=== PATIENT | female | born 1930 | race Caucasian/White ===

== ENCOUNTER 2019-03-10 21:20 | Inpatient (IN) | payer OTHER ==
--- NOTE | 2019-03-10 21:42 | PDOC ---
History of Present Illness - General Stated Complaint: DIFFCULTY BREATHING Time Seen by Provider: 03/10/19 21:28 - History of Present Illness Initial Comments: 03/10/19 21:45 88f with pmh of HTN, HLD, CHF and dementia brought to the ED by EMS after called by daughter for generalized weakness and cough for the past day. According to daughter who lives alone with the patient, her mother is usually moderately lethargic but still functional. Today the patient is more "out-of-it " than usual and "can't even raise a glass of water to drink". Daughter states that she feels the patient's generalized health been getting worse for the past two weeks after the received her pneumococcal vaccine. Patient is a life-long smoker. Patient denies there's anything wrong with her. PCP: Jamin Past History - Past Medical History Allergies/Adverse Reactions: Allergies Allergy/AdvReac Type Severity Reaction Status Date / Time No Known Allergies Allergy Verified 03/10/19 21:52 Home Medications: Ambulatory Orders Ibuprofen [Motrin -] 400 mg PO TID #21 tablet 12/11/14 Olmesartan/Amlodipin/Hcthiazid [Tribenzor 20-5-12.5 mg Tablet] 1 each PO HTN: Yes - Suicide/Smoking/Psychosocial Hx Smoking History: Current every day smoker Number of Cigarettes Smoked Daily: 10 Hx Alcohol Use: Yes (RARE) Substance Use Type: Alcohol Review of Systems - Review of Systems Able to Perform ROS?: Yes Is the patient limited [place] Islander proficient: No Constitutional: No: Symptoms Reported HEENTM: No: Symptoms Reported Respiratory: No: Symptoms reported Cardiac (ROS): No: Symptoms Reported ABD/GI: No: Symptoms Reported : No: Symptoms Reported Musculoskeletal: No: Symptoms Reported Integumentary: No: Symptoms Reported Neurological: No: Symptoms reported All Other Systems: Reviewed and Negative *Physical Exam - Physical Exam General Appearance: Yes: Appropriately Dressed, Obese. No: Apparent Distress HEENT: positive: EOMI, [place], Normal ENT Inspection Respiratory/Chest: positive: Decreased Breath Sounds. negative: Chest Tender, Respiratory Distress Cardiovascular: positive: Regular Rhythm, Regular Rate, S1, S2 Gastrointestinal/Abdominal: positive: Normal Bowel Sounds, Soft, Protuberent. negative: Tender ED Treatment Course - LABORATORY CBC & Chemistry Diagram: 03/10/19 21:35 03/10/19 21:35 - RADIOLOGY Radiology Studies Ordered: Category Date Time Status CHEST X-RAY PORTABLE* [RAD] Stat Radiology 03/10/19 21:29 Ordered Medical Decision Making - Medical Decision Making 03/10/19 22:23 88f with with h/o CHF presenting with lethargy and cough for the past day. Will r/o pneumonia, influenza, CHF, UTI, negtive influenza. elevated white count suspicious for infectious process, negative pedal edema makes chf less likely. Right lower lobe opacification consistent with pneumonia, will cover with ceftriaxone and azithromycine. Hypokalemia: repleting K with IV and PO potassium. Elevated troponin -> EKG normal sinus rhythm, probably ischemic demand. Patient now on O2. Admitting patient to tele obs *DC/Admit/Observation/Transfer Diagnosis at time of Disposition: Pneumonia, Hypokalemia - Discharge Dispostion Decision to Admit order: Yes - Referrals - Patient Instructions - Post Discharge Activity
[2019-03-10 21:54] LABS: BASO % 0.2 % (0-2.0); EOS % 0.1 % (0-4.5); HEMATOCRIT 40.1 % (32.4-45.2); HEMOGLOBIN 13.4 GM/dL (10.7-15.3); LYMPH % 1.7 % (8-40); MCH 29.6 pg (25.7-33.7); MCHC 33.5 g/dl (32.0-36.0); MEAN CELL VOLUME 88.4 fl (80-96); MONO % 10.2 % (3.8-10.2); NEUT % 87.8 % (42.8-82.8); PLATELET COUNT 341 K/MM3 (134-434); RBC 4.54 M/mm3 (3.60-5.2)
[2019-03-10 22:09] LABS: INR 1.16 (0.83-1.09); PROTHROMBIN TIME (PATIENT) 13.7 SEC (9.7-13.0)
[2019-03-10 22:12] LABS: ACTIVATED PTT 30.1 SECONDS (25.2-36.5)
[2019-03-10 22:27] LABS: ALBUMIN 2.2 g/dl (3.4-5.0); ALK PHOS 75 U/L (45-117); ANION GAP 12 MMOL/L (8-16); BILIRUBIN,TOTAL 1.1 mg/dL (0.2-1); BLOOD UREA NITROGEN 67 mg/dL (7-18); CALCIUM 9.4 mg/dL (8.5-10.1); CHLORIDE 90 mmol/L (98-107); CO2 30 mmol/L (21-32); CREATININE 2.1 mg/dL (0.55-1.3); GLUCOSE,RANDOM 141 mg/dL (74-106); MAGNESIUM 2.1 mg/dL (1.8-2.4); N-TERMINAL BNP 6161.2 pg/ml (5-450); POTASSIUM 2.8 mmol/L (3.5-5.1); SGOT/AST 62 U/L (15-37); SGPT/ALT 44 U/L (13-61); SODIUM 131 mmol/L (136-145); TOT PROT 7.1 g/dl (6.4-8.2)
[2019-03-10] MEDS ORDERED: MAGNESIUM SULF 50% (8.12 MEQ/2 ML-1 GM VIAL) IVPB ONE (22:28)
[2019-03-10] MEDS ORDERED: POTASSIUM CHLORIDE 20 MEQ PREMIX IVPB 100 ML IVPB ONE (22:29)
[2019-03-10] MEDS ORDERED: AZITHROMYCIN IVPB 500 MG in DEXTROSE 5%-WATER - 250 ML IVPB ONE (22:57)
[2019-03-10] MEDS ORDERED: CEFTRIAXONE 1 GM in DEXTROSE 5%-WATER - 50 ML IVPB ONE (22:57)
[2019-03-10] MEDS ORDERED: KCL 10 MEQ IVPB 10 MEQ/100 ML INFUS.BAG IVPB ONE (23:19)
[2019-03-10] MEDS ORDERED: MAGNESIUM 1GM/D5W - 2 GM/200 ML IVPB IVPB ONE (23:19)
--- NOTE | 2019-03-10 23:45 | HP ---
CHIEF COMPLAINT: cough, sob PCP: Jamin HISTORY OF PRESENT ILLNESS: 88 woman, smoker, brought in by daughter for generalized weakness, cough, sob for the past day. Patient does not provide any history and is uncooperative. She was taking off her Bipap mask and trying to come off bed. (1) ceftriaxone (2) azithromycin (3) cxr Recent Travel:no PAST MEDICAL HISTORY:HTN, HLD, CHF and dementia PAST SURGICAL HISTORY: Social History: Smoking: yes Alcohol: no Drugs: no Family History: unable to obtain Allergies No Known Allergies Allergy (Verified 03/10/19 21:52) HOME MEDICATIONS: Home Medications Medication Instructions Recorded Ibuprofen [Motrin -] 400 mg PO TID #21 tablet 12/11/14 Olmesartan/Amlodipin/Hcthiazid 1 each PO 12/11/14 [Tribenzor 20-5-12.5 mg Tablet] REVIEW OF SYSTEMS- unable to obtain as patient has severe underlying dementia PHYSICAL EXAMINATION Vital Signs - 24 hr 03/10/19 21:52 Temperature 99.0 F Pulse Rate 71 Respiratory 20 Rate Blood Pressure 149/46 L O2 Sat by Pulse 86 L Oximetry (%) GENERAL: Awake, alert, disoriented to place and time. HEAD: Normal with no signs of trauma. EYES: Pupils equal, round and reactive to light, extraocular movements intact, sclera anicteric, conjunctiva clear. No lid lag. EARS, NOSE, THROAT: Ears normal, nares patent, oropharynx clear without exudates. Moist mucous membranes. NECK: Normal range of motion, supple without lymphadenopathy, JVD, or masses. LUNGS: bibasilar crackles on lung auscultation, HEART: Regular rate and rhythm, normal S1 and S2 without murmur, rub or gallop. ABDOMEN: Soft, nontender, not distended, normoactive bowel sounds, no guarding, no rebound, no masses. MUSCULOSKELETAL: Normal range of motion at all joints. No bony deformities or tenderness. UPPER EXTREMITIES: 2+ pulses, warm, well-perfused. No cyanosis. No clubbing. No peripheral edema. LOWER EXTREMITIES: 1+ pedal edema b/l NEUROLOGICAL: Cranial nerves II-XII intact. Normal speech. PSYCHIATRIC: Cooperative. Good eye contact. Appropriate mood and affect. SKIN: Warm, dry, normal turgor, no rashes or lesions noted, normal capillary refill. Laboratory Results - last 24 hr 03/10/19 03/10/19 03/10/19 21:35 21:35 21:35 WBC 28.0 H RBC 4.54 Hgb 13.4 Hct 40.1 MCV 88.4 MCH 29.6 MCHC 33.5 RDW 15.0 Plt Count 341 MPV 9.0 Absolute Neuts (auto) 24.6 H Neutrophils % 87.8 H Lymphocytes % 1.7 L Monocytes % 10.2 Eosinophils % 0.1 Basophils % 0.2 Nucleated RBC % 0 PT with INR INR PTT (Actin FS) Sodium 131 L Potassium 2.8 L* Chloride 90 L Carbon Dioxide 30 Anion Gap 12 BUN 67 H Creatinine 2.1 H Creat Clearance w eGFR 22.28 Random Glucose 141 H Lactic Acid Calcium 9.4 Magnesium 2.1 Total Bilirubin 1.1 H AST 62 H ALT 44 Alkaline Phosphatase 75 Troponin I 0.13 H B-Natriuretic Peptide 6161.2 H Total Protein 7.1 Albumin 2.2 L Influenza A (Rapid) Negative Influenza B (Rapid) Negative 03/10/19 03/10/19 21:35 22:00 WBC RBC Hgb Hct MCV MCH MCHC RDW Plt Count MPV Absolute Neuts (auto) Neutrophils % Lymphocytes % Monocytes % Eosinophils % Basophils % Nucleated RBC % PT with INR 13.70 H INR 1.16 H PTT (Actin FS) 30.1 Sodium Potassium Chloride Carbon Dioxide Anion Gap BUN Creatinine Creat Clearance w eGFR Random Glucose Lactic Acid 1.7 Calcium Magnesium Total Bilirubin AST ALT Alkaline Phosphatase Troponin I B-Natriuretic Peptide Total Protein Albumin Influenza A (Rapid) Influenza B (Rapid) Imaging studies reviewed EKG with sinus rhythm, no acute ischemic changes ASSESSMENT/PLAN: #Community acquired pneumonia- cough, probable right lower lobe infiltrate on CXR -blood culture -sputum culture -urine legionella ag -ceftriaxone 1g IV q24hrs -azithromycin 500mg IV q24hrs -suppelemental o2 via nasal cannula - pt was not cooperative with Bipap #Possible CHF exacerbation - prominent pulmonary vasculature high BNP, pedal edema -corbin catheter - i/o -daily weights -avoid Lasix at this time due to severe hypokalemia -Bblocker -ARB #Tropinemia - uncertain if demand ischemia or NSTEMI -ASA 324mg po -trend troponin -statin -echo -cardiology consult #Hypekalemia - K was 2.8. Uncertain etiology- may be from poor PO intake. -potassium -monitor on telemetry -avoid any diuretics -repeat K #Severe dementia - disoriented to place and time -bed rest -fall precautions -avoid haldol due to borderline prolonged QTC #DVT ppx -heparin sc Visit type - Emergency Visit Emergency Visit: Yes ED Registration Date: 03/10/19 Care time: The patient presented to the Emergency Department on the above date and was hospitalized for further evaluation of their emergent condition. - New Patient This patient is new to me today: Yes Date on this admission: 03/11/19 - Critical Care Critical Care patient: No
[2019-03-10 23:54] LABS: PLATELET ESTIMATE ADEQUATE
[2019-03-10] MEDS: KCL 10 MEQ IVPB 10 MEQ/100 ML INFUS.BAG IVPB SCH (23:55)
[2019-03-10] MEDS ORDERED: AZITHROMYCIN IVPB 500 MG/250 ML BAG IVPB ONE (23:56)
[2019-03-10] MEDS ORDERED: CEFTRIAXONE 1 GM/50 ML BAG ONE ×2 (23:57→23:58)
[2019-03-11] MEDS ORDERED: POTASSIUM CHLORIDE ORAL LIQUID 20 MEQ/15 ML PO ONE (00:05)
[2019-03-11] MEDS ORDERED: POTASSIUM CHLORIDE TABS 20 MEQ TABLET.ER (FP) PO ONE ×2 (00:26→02:39)
[2019-03-11] MEDS: KCL 10 MEQ IVPB 10 MEQ/100 ML INFUS.BAG IVPB SCH ×2 (00:31→02:08)
[2019-03-11] MEDS ORDERED: ASPIRIN 325 MG TABLET PO ONE (01:51)
[2019-03-11] MEDS ORDERED: KCL 10 MEQ IVPB 10 MEQ/100 ML INFUS.BAG IVPB ONE ×2 (02:04→04:07)
[2019-03-11 06:28] LABS: MCH 29.9 pg (25.7-33.7); MCHC 34.2 g/dl (32.0-36.0); MEAN CELL VOLUME 87.5 fl (80-96); PLATELET COUNT 341 K/MM3 (134-434); RBC 4.35 M/mm3 (3.60-5.2); RDW 15.3 % (11.6-15.6); WHITE BLOOD COUNT 24.1 K/mm3 (4.0-10.0)
[2019-03-11 08:17] LABS: ANION GAP 10 MMOL/L (8-16); BLOOD UREA NITROGEN 71 mg/dL (7-18); CALCIUM 8.9 mg/dL (8.5-10.1); CHLORIDE 92 mmol/L (98-107); CO2 29 mmol/L (21-32); GLUCOSE,RANDOM 153 mg/dL (74-106); POTASSIUM 3.5 mmol/L (3.5-5.1); SODIUM 131 mmol/L (136-145)
--- NOTE | 2019-03-11 09:53 | EKG ---
Test Reason : Blood Pressure : / mmHG Vent. Rate : 074 BPM Atrial Rate : 074 BPM P-R Int : 150 ms QRS Dur : 082 ms QT Int : 434 ms P-R-T Axes : 090 011 075 degrees QTc Int : 481 ms NORMAL SINUS RHYTHM SEPTAL INFARCT , AGE UNDETERMINED ABNORMAL ECG WHEN COMPARED WITH ECG OF 02-SEP-2009 22:07, SEPTAL INFARCT IS NOW PRESENT QT HAS LENGTHENED Confirmed by STEVEN RAZA, MUKESH ([id number]) on 03/11/2019 9:52:51 AM Referred By: Confirmed By:MUKESH HARRIS MD
[2019-03-11] MEDS ORDERED: HYDROCHLOROTHIAZIDE 12.5 MG CAPSULE (FP) PO SCH (10:00)
[2019-03-11] MEDS ORDERED: PATIENT'S OWN MEDICATION (NON-FORMULARY) (Olmesartan/Amlodipin/Hcthiazid [Tribenzor 20-5-1 PO SCH (10:00)
[2019-03-11 10:02] LABS: EPI CELLS 2.8 /HPF (0-5/HPF); URINE APPEARANCE CLOUDY; URINE BACTERIA 0.7 /hpf (NEGATIVE); URINE BILIRUBIN NEGATIVE (NEGATIVE); URINE CASTS 21 /lpf (0-8); URINE COLOR YELLOW; URINE GLUCOSE (UA) NEGATIVE (NEGATIVE); URINE KETONE NEGATIVE (NEGATIVE); URINE LEUK ESTERASE NEGATIVE (NEGATIVE); URINE NITRITE NEGATIVE (NEGATIVE); URINE PROTEIN 1+ (NEGATIVE); URINE WBC 5 /hpf (0-5)
--- NOTE | 2019-03-11 10:43 | PN ---
Progress Note, Physician Chief Complaint: patient seen and examined sitting in bed per nursing was very agitation last night pulled out iv lines trying to get out of bed urine sent wbc count now 28 to 24 on oxygen via nasal canula o2 sats drop when removes the oxygen patient needs sitter - Current Medication List Current Medications: Active Medications Amlodipine Besylate (Norvasc -) 5 mg PO DAILY [facility] Atorvastatin Calcium (Lipitor -) 40 mg PO HS [facility] Heparin Sodium (Porcine) (Heparin -) 5,000 unit SQ BID [facility] Ceftriaxone Sodium 1 gm/ (Dextrose) 50 mls @ 100 mls/hr IVPB DAILY [facility] Sodium Chloride (Normal Saline -) 1,000 mls @ 75 mls/hr IV ASDIR [facility] Azithromycin (Zithromax 500mg Ivpb (Pre-Docked)) 500 mg in 250 mls @ 250 mls/ hr IVPB DAILY [facility] Metoprolol Tartrate (Lopressor -) 25 mg PO BID [facility] Valsartan (Diovan -) 160 mg PO DAILY PAMELA - Objective Vital Signs: Vital Signs Temperature 98.9 F 03/11/19 08:20 Pulse Rate 77 03/11/19 08:20 Respiratory Rate 20 03/11/19 08:20 Blood Pressure 136/59 L 03/11/19 08:20 O2 Sat by Pulse Oximetry (%) 93 L 03/11/19 08:20 Constitutional: Yes: Calm Cardiovascular: Yes: Regular Rate and Rhythm, S1, S2 Respiratory: Yes: On Nasal O2, Other (crackles on left side) Gastrointestinal: Yes: Normal Bowel Sounds, Soft Edema: No Neurological: Yes: Alert Labs: CBC, BMP 03/11/19 05:20 03/11/19 06:00 INR, PTT INR 1.16 (0.83-1.09) H 03/10/19 21:35 Problem List - Problems (1) Pneumonia Assessment/Plan: iv abx leukocytosis oxygen via nasal canula ID eval swallow eval Code(s): J18.9 - PNEUMONIA, UNSPECIFIED ORGANISM (2) Hypokalemia Assessment/Plan: repleted repeat labs Code(s): E87.6 - HYPOKALEMIA (3) Elevated troponin Assessment/Plan: echo cardiology eval maybe secondary to demand ischemia aspirin metoprolol statin Code(s): R74.8 - ABNORMAL LEVELS OF OTHER SERUM ENZYMES (4) ANI (acute kidney injury) Assessment/Plan: renal sono, UA corbin cath renal eval gentle hydration Code(s): N17.9 - ACUTE KIDNEY FAILURE, UNSPECIFIED (5) Agitation Assessment/Plan: secondary to infectious process patient needs a sitter psych eval Code(s): R45.1 - RESTLESSNESS AND AGITATION
[2019-03-11] MEDS ORDERED: AZITHROMYCIN IVPB 500 MG/250 ML BAG IVPB SCH (10:45)
[2019-03-11 10:55] LABS: URINE RBC 5.2 /hpf (0-4)
[2019-03-11] MEDS: VALSARTAN 160 MG TABLET (UD) PO SCH (11:01)
[2019-03-11] MEDS: METOPROLOL TARTRATE 25 MG TABLET (FP) PO SCH (11:02)
[2019-03-11] MEDS: HEPARIN NA (PORCINE) 5,000 UNITS/ML 1ML VIAL SQ SCH ×2 (12:02→21:55)
[2019-03-11] MEDS: ATORVASTATIN CA 40 MG TABLET (FP) PO SCH (12:03)
[2019-03-11] MEDS: amLODIPine BESYLATE 5 MG TABLET (FP) PO SCH (12:04)
[2019-03-11] MEDS: SODIUM CHLORIDE 1,000 ML IV SCH (12:04)
[2019-03-11] MEDS ORDERED: AZITHROMYCIN IVPB 500 MG/250 ML BAG IVPB ONE (12:29)
--- NOTE | 2019-03-11 12:33 | CONSULT ---
Admitting History and Physical - Primary Care Physician PCP: Sommer Neville - Admission History of Present Illness: 88f with with h/o CHF presenting with lethargy and cough for the past day. Per EMR- influenza (-) elevated white count suspicious for infectious process, negative pedal edema makes chf less likely. Right lower lobe opacification consistent with pneumonia, Laboratory Tests 03/10/19 03/11/19 21:35 05:20 WBC 28.0 H 24.1 H History Source: Medical Record Limitations to Obtaining History: Poor Historian ("2013" "[employer]" "[employer]" does not know why she is here) - Smoking History Smoking history: Current every day smoker Have you smoked in the past 12 months: No Aproximately how many cigarettes per day: 10 - Alcohol/Substance Use Hx Alcohol Use: Yes (RARE) History - Admission Reason For Visit: PNEUMONIA/HYPOKALEMIA - Diagnostics X-ray: Report Reviewed - General Mental Status: Awake and Alert, Able to Follow Commands, Forgetful, Vague Attention: Intact Ability to Follow Directions: Good Head/Neck Control: Fair - Hearing Hearing: Functional Speech Evaluation - Communication Primary Language: VINCENTIAN Communication: Yes: Within Normal Limits Oral Expression Ability: Yes: No Impairment - Speech Production Able to Make Needs Known: Yes: WNL Intelligibility: Yes: WNL - Speech Characteristics Voice Loudness: Normal Voice Pitch: Yes: Normal Voice Phonatory-based Quality: Yes: Normal Speech Pattern: Normal Speech Clarity: < 100% Nasal Resonance: Normal Articulation: Yes: Precise - Language/Auditory Comprehension Follows: Yes: 1 Stage Simple Commands Observation: Able to respond to yes/no queries: Yes, Yes/No Confusion: No, Comprehends Conversational Speech: Yes - Language/Verbal Expression Able to Respond to Simple Queries: Yes: WNL Able to Communicate Wants and Needs: Yes: WNL Functional Communication Status: Yes: WNL - Swallow Evaluation/Bedside Assessment Current Nutritional Intake: Regular, Thin Liquids Oral Secretions: Yes: WFL Facial Symmetry at Rest: Symmetrical Facial Symmetry on Retraction: Symmetrical Against Resistance Opening: Normal Against Resistance Closing: Normal Pucker Lips: Normal Smile: Normal Lingual Movement: Normal, Symmetric Lingual Speed of Movement: Normal Lingual Movement Strgth Against Opposition: Normal Lingual Movement Characteristics: Normal Velopharyngeal Movement: Normal Laryngeal Movement: Able to Palpate Rate of Intake: WFL Bolus Size: WFL Labial Seal: WFL Oral Prep Time: WFL A-P Transit: WFL Timing of Swallow: Delayed Coughing/Throat Clear: Yes (with and without po intake) Recommendations - Speech Evaluation, Impression/Plan Impression: Pt was reportedly quite agitated earlier. Sitter at bedside in ER. Calm now. Cough with and without po intake. Delayed onset of swallow. Aspiration? Bedside evaluation not conclusive. - Dysphagia Impressions/Plan Dysphagia Impressions: Ongoing Evaluation *Silent aspiration: cannot be R/O at bedside Dysphagia Treatment Plan: Chin Tuck/Down, Clear Pocket Food, Facilitative Feeding, Safe Rate, 1/2 tsp. at a time, Elevate HOB during feed Recommendations: Other (To reassess, possible need for MBS) - Recommendations Diet Consistency: Other (trioal chopped diet) Medication Administration: Crushed with applesauce Liquids: [place] Thick
--- NOTE | 2019-03-11 13:57 | ECHO ---
Name: TAI JAIMES Exam:Adult Echocardiogram Study Date: 03/11/2019 10:37 AM Age: 88 yrs Reason For Study: EVALUATE FOR CHF Height: 60 in Weight: 160 lb BSA: 1.7 m2 MMode/2D Measurements & Calculations IVSd: 0.89 cm Ao root diam: 2.6 cm LVIDd: 4.1 cm LA dimension: 3.1 cm LVIDs: 2.8 cm LVPWd: 0.89 cm EDV(Teich): 73.5 ml LVOT diam: 2.1 cm ESV(Teich): 28.5 ml Doppler Measurements & Calculations MV E max lopez: 47.3 cm/sec Ao V2 max: 170.6 cm/sec MV A max lopez: 84.3 cm/sec Ao max P.6 mmHg MV E/A: 0.56 Ao V2 mean: 103.7 cm/sec Ao mean P.3 mmHg Ao V2 VTI: 26.3 cm ARI(I,D): 3.3 cm2 ARI(V,D): 4.0 cm2 LV V1 max P.0 mmHg SV(LVOT): 86.0 ml LV V1 mean P.4 mmHg LV V1 max: 205.9 cm/sec LV V1 mean: 126.4 cm/sec LV V1 VTI: 25.8 cm TR max lopez: 206.5 cm/sec Med Peak E' Lopez: 4.4 cm/sec TR max P.1 mmHg Med E/e': 10.8 Lat Peak E' Lopez: 6.7 cm/sec Lat E/e': 7.0 Procedure The study was technically limited with all images being suboptimal in quality. The study was technica lly difficult with many images being suboptimal in quality. Patient uncooperative with study. Left Ventricle The left ventricular size, thickness and function are normal. Ejection Fraction = 60-65%. Grade I kareem stolic dysfunction, (abnormal relaxation pattern). Regional wall motion abnormalities cannot be excluded due to limited visualization. Right Ventricle The right ventricle is normal in size and function. Atria The left atrial size is normal. Right atrium not well visualized. Mitral Valve The mitral valve is not well visualized. There is trace mitral regurgitation. Tricuspid Valve The tricuspid valve is not well visualized. There is trace tricuspid regurgitation. There was insuffi cient TR detected to calculate RV systolic pressure. Aortic Valve The aortic valve is not well visualized. Pulmonic Valve The pulmonic valve is not well visualized. Great Vessels The aortic root is normal size. Pericardium/Pleura There is no pericardial effusion. Interpretation Summary There is no comparison study available. The left ventricular size, thickness and function are normal The right ventricle is normal in size and function. There is trace tricuspid regurgitation. Ejection Fraction = 60-65%. Grade I diastolic dysfunction, (abnormal relaxation pattern). There is trace mitral regurgitation. There is no comparison study available. Syed Thomas MD 03/11/2019 01:56 PM
[2019-03-11 15:37] LABS: ARTERIAL BLD GAS O2 SATURATION 87.1 % (95-98); ARTERIAL BLOOD GAS BASE EXCESS 2.2 meq/l (-2-2); ARTERIAL BLOOD GAS PCO2 48.6 mmHg (35-45); ARTERIAL BLOOD GAS PO2 57.8 mmHg (80-105); ARTERIAL BLOOD GAS pH 7.37 (7.35-7.45)
[2019-03-11 15:40] LABS: ALLENS TEST POSITIVE
--- NOTE | 2019-03-11 15:52 | PN ---
Progress Note (short form) - Note Progress Note: abg noted pulm eval ivf bipap iv steroids conitnuous pulse oximetry Problem List - Problems (1) Pneumonia Code(s): J18.9 - PNEUMONIA, UNSPECIFIED ORGANISM (2) Hypokalemia Code(s): E87.6 - HYPOKALEMIA (3) Elevated troponin Code(s): R74.8 - ABNORMAL LEVELS OF OTHER SERUM ENZYMES (4) ANI (acute kidney injury) Code(s): N17.9 - ACUTE KIDNEY FAILURE, UNSPECIFIED (5) Agitation Code(s): R45.1 - RESTLESSNESS AND AGITATION
--- NOTE | 2019-03-11 17:12 | PN ---
Progress Note (short form) - Note Progress Note: ID consult dictated extremely poor historian she denies everything but the HOTEL RECEPTIONIST tells me she is coughing denies sob, nausea or vomiting denies chest pain or abdominal pain denies fever found to have bibasilar pneumonia with leukocytosis no recent hospital admissions agree with treatment for CAP- f/u cultures, f/u urinary antigens rocephin/doxycycline, has prolonged qtc received zithromax already today ?renal insufficiency- check with PMD baseline renal function check renal sonogram Problem List - Problems (1) Pneumonia Code(s): J18.9 - PNEUMONIA, UNSPECIFIED ORGANISM (2) Hyponatremia Code(s): E87.1 - HYPO-OSMOLALITY AND HYPONATREMIA (3) Hypokalemia Code(s): E87.6 - HYPOKALEMIA (4) Renal insufficiency Code(s): N28.9 - DISORDER OF KIDNEY AND URETER, UNSPECIFIED
--- NOTE | 2019-03-11 17:25 | CON.CARD ---
Consult Consult Specialty:: Cardiology Reason for Consultation:: Cough and SOB. Positive troponins - History of Present Illness Chief Complaint: Cough and SOB History of Present Illness: This is an 88 year old female with a PMH of HTN, HLD, and dCHF. Echocardiogram 60 - 65% with diastolic dysfunction. She is a long time and current cigarette. smoker. She presents now with progressive weakness and a cough. EKG is NSR without acute changes. CXR has basilar changes. WBC count 28 Troponin 0.13 - 0.09 BNP 6161 - History Source Limitations to Obtaining History: Intoxication - Alcohol/Substance Use Hx Alcohol Use: Yes (RARE) - Smoking History Smoking history: Current every day smoker Have you smoked in the past 12 months: No Aproximately how many cigarettes per day: 10 Home Medications - Allergies Allergies/Adverse Reactions: Allergies Allergy/AdvReac Type Severity Reaction Status Date / Time No Known Allergies Allergy Verified 03/10/19 21:52 - Home Medications Home Medications: Ambulatory Orders Amlodipine Besylate 10 mg PO DAILY 03/11/19 Aspirin 81 mg PO DAILY 03/11/19 Atorvastatin Ca [Lipitor] 40 mg PO HS 03/11/19 Cholecalciferol (Vitamin D3) [Vitamin D] 2,000 unit PO DAILY 03/11/19 Cyanocobalamin (Vitamin B-12) [Vitamin B-12] 1,000 mcg PO DAILY 03/11/19 Donepezil HCl 10 mg PO DAILY 03/11/19 Escitalopram Oxalate [Lexapro -] 10 mg PO DAILY 03/11/19 Folic Acid 1 mg PO DAILY 03/11/19 Furosemide 40 mg PO DAILY 03/11/19 Memantine HCl [Memantine HCl ER] 14 mg PO DAILY 03/11/19 Metoprolol Succinate [[place]sp[place] Sprinkle] 25 mg PO DAILY 03/11/19 Potassium Chloride 20 meq PO DAILY 03/11/19 Vital Signs: Vital Signs Temperature 98.4 F 03/11/19 14:00 Pulse Rate 79 03/11/19 15:01 Respiratory Rate 22 H 03/11/19 15:01 Blood Pressure 101/48 L 03/11/19 15:01 O2 Sat by Pulse Oximetry (%) 86 L 03/11/19 15:01 Constitutional: Yes: No Distress HENT: Yes: WNL Respiratory: Yes: Rhonchi (Scattered bilateral) Gastrointestinal: Yes: Soft Cardiovascular: Yes: Regular Rate and Rhythm Heart Sounds: Yes: S1, S2 (No MRHG) Edema: No Neurological: Yes: Alert, Oriented - Other Data Labs, Other Data: CBC, BMP 03/11/19 05:20 03/11/19 06:00 INR, PTT INR 1.16 (0.83-1.09) H 03/10/19 21:35 Troponin, BNP 03/10/19 03/11/19 03/11/19 21:35 05:20 06:00 Troponin I 0.13 H Cancelled 0.09 H B-Natriuretic Peptide 6161.2 H Troponin, BNP 03/10/19 03/11/19 03/11/19 21:35 05:20 06:00 Troponin I 0.13 H Cancelled 0.09 H B-Natriuretic Peptide 6161.2 H Assessment/Plan 88 year old female with a PMH of HTN, HLD, and dCHF. Echocardiogram 60 - 65% with diastolic dysfunction. She is a long time and current cigarette. smoker. She presents now with progressive weakness and a cough. EKG is NSR without acute changes. CXR has basilar changes. WBC count 28 Troponin 0.13 - 0.09 BNP 6161 Positive Troponin This represents demand ischemia (a type 2 FL) and not an acute copronary syndrome This may be secondary to an infection, agree with Ceftriaxone for now Continue metoprolol tartrate 25 mg PO BID Follow troponin trends HTN/HLD Continue valsartan/amlodipine Continue atorvastatin
[2019-03-11] MEDS: methylPREDNISolone NA SUCC 40 MG/1 ML VIAL IVPUSH SCH (18:46)
[2019-03-11] MEDS ORDERED: methylPREDNISolone NA SUCC 40 MG/1 ML VIAL ONE (18:47)
--- NOTE | 2019-03-11 20:46 | CONS ---
DATE OF CONSULTATION: DATE OF DICTATION: 03/11/2019 INFECTIOUS DISEASE CONSULTATION HISTORY OF PRESENT ILLNESS: This is an 88-year-old woman who was brought to the emergency room by EMS after the daughter called EMS. According to the daughter who lives with the mother, the patient is usually functional. She was more out of it and weaker than usual, and she called EMS and had her brought to the ER. The patient herself has no complaints. The daughter feels that she has not been doing well for the last 2 weeks. This is all per the ER chart. The patient is a very poor historian. She is able to tell you her birthday, but she does not know her age. She denies all symptoms whatsoever. She has a moist cough. Denies shortness of breath. Denies headache, chest pain, abdominal pain, nausea, vomiting, diarrhea, or dysuria. ALLERGIES: She has no known drug allergies. MEDICATION: Her medications at home include Tribenzor and Motrin p.r.n. Her home medications include amlodipine, aspirin, atorvastatin, vitamin D, vitamin B12, , Lexapro, folic acid, furosemide, memantine, metoprolol, and potassium. PAST MEDICAL HISTORY: Her past medical history is notable for hypertension, hyperlipidemia, CHF, and dementia. SOCIAL HISTORY: She tells me she lives alone, but apparently lives with her daughter, or her daughter lives with her, and apparently she is still a cigarette smoker. In the ER, she was noted to have bibasilar infiltrates and a white count of 28,000. She was noted to be hyponatremic and hypokalemic as well with an elevated BUN and creatinine. She was given ceftriaxone and Zithromax for possible community-acquired pneumonia yesterday and today. I am asked to see her for further management. REVIEW OF SYSTEMS: As per HPI. PHYSICAL EXAMINATION: VITAL SIGNS: Temperature is 98.4, T-max is 99, pulse is 79, blood pressure 101/48, respiratory rate 22. She is saturating 93% on FiO2 of 40%. HEENT: Normocephalic. Eyes are anicteric. GENERAL: She follows simple commands. NECK: Supple. She has no thrush. She has dentures. She has no meningeal signs. LUNGS: Diminished breath sounds at the bases. Bibasilar crackles. HEART: Regular rate and rhythm. ABDOMEN: Soft, nontender. EXTREMITIES: Without edema. LABORATORY: Notable for a white count on admission of 28,000, this morning 24, hemoglobin 13, platelets of 341, INR is 1.1. BUN and creatinine are 71 and 2, sodium is 131 and potassium at 3.5. CK is 404. Urinalysis is negative. Influenza serology is negative. Blood cultures and urine cultures are pending. Chest x-ray reveals bibasilar infiltrates. IMPRESSION: In summary this is an elderly woman, no recent admissions, admitted with generalized weakness and cough, thought to have bibasilar pneumonia. Would suggest continuing her ceftriaxone. Would switch from Zithromax to doxycycline, as she has evidence of prolonged QTC. Will reorder a legionella and pneumococcal urinary antigen as well with further recommendations to follow. The plan would be to treat her with ceftriaxone and doxycycline while awaiting the tests. Further recommendations to follow. DARVIN MCKINLEY M.D. JULIANA/[id number]
[2019-03-11] MEDS ORDERED: LORazepam 2 MG/ML SDV VIAL IVPUSH ONE (20:47)
[2019-03-11] MEDS ORDERED: HEPARIN NA (PORCINE) 5,000 UNITS/ML 1ML VIAL ONE (21:36)
[2019-03-11] MEDS ORDERED: METOPROLOL TARTRATE 25 MG TABLET (FP) ONE (21:36)
[2019-03-11] MEDS ORDERED: LORazepam 2 MG/ML SDV VIAL ONE (21:36)
[2019-03-11] MEDS ORDERED: CEFTRIAXONE 2 GM/100 ML BAG IVPB ONE (21:37)
[2019-03-11] MEDS: CEFTRIAXONE 2 GM in DEXTROSE 5%-WATER 100 ML IVPB SCH (21:55)
[2019-03-11] MEDS ORDERED: CEFTRIAXONE 1 GM in DEXTROSE 5%-WATER - 50 ML IVPB SCH (22:00)
[2019-03-11] MEDS ORDERED: AZITHROMYCIN IVPB 500 MG in DEXTROSE 5%-WATER - 250 ML IVPB SCH (22:00)
[2019-03-12] MEDS: METOPROLOL TARTRATE 25 MG TABLET (FP) PO SCH ×3 (00:17→22:39)
[2019-03-12] MEDS: DOXYCYCLINE INJECTION 100 MG in DEXTROSE 5%-WATER - 100 ML IVPB SCH ×4 (00:17→22:43)
[2019-03-12] MEDS: ATORVASTATIN CA 40 MG TABLET (FP) PO SCH ×2 (00:18→22:38)
[2019-03-12] MEDS: methylPREDNISolone NA SUCC 40 MG/1 ML VIAL IVPUSH SCH ×3 (02:13→17:33)
--- NOTE | 2019-03-12 06:08 | PN ---
Progress Note (short form) - Note Progress Note: Episodic Note 03/12/2019 @ 6am Called by nurse patient went into atrial fibrillation. Chart reviewed. She has no past medical history of atrial fibrillation. Telemetry reviewed and a irregular rhythm is noted with normal rate at 5:14am, she then spontaneously converted to a sinus rhythm. EKG done revealing a normal sinus rhythm. Blood pressure is stable. Continue with metoprolol succinate and anticoagulation with heparin sq injections. Cardiology following patient and will review. Visit type - Emergency Visit Emergency Visit: No - New Patient This patient is new to me today: Yes Date on this admission: 03/12/19 - Critical Care Critical Care patient: No
[2019-03-12 08:00] LABS: BASO % 0.1 % (0-2.0); EOS % 0.1 % (0-4.5); HEMATOCRIT 36.9 % (32.4-45.2); HEMOGLOBIN 12.5 GM/dL (10.7-15.3); LYMPH % 2.2 % (8-40); MCH 29.7 pg (25.7-33.7); MCHC 33.8 g/dl (32.0-36.0); MEAN CELL VOLUME 87.9 fl (80-96); MEAN PLT VOLUME 8.8 fl (7.5-11.1); MONO % 3.8 % (3.8-10.2); NEUT % 93.8 % (42.8-82.8); PLATELET COUNT 332 K/MM3 (134-434); RBC 4.19 M/mm3 (3.60-5.2); RDW 15.3 % (11.6-15.6); WHITE BLOOD COUNT 16.5 K/mm3 (4.0-10.0)
[2019-03-12 08:27] LABS: ALBUMIN 1.8 g/dl (3.4-5.0); ALK PHOS 64 U/L (45-117); ANION GAP 8 MMOL/L (8-16); BILIRUBIN,TOTAL 0.4 mg/dL (0.2-1); BLOOD UREA NITROGEN 77 mg/dL (7-18); CALCIUM 9.4 mg/dL (8.5-10.1); CHLORIDE 98 mmol/L (98-107); CO2 29 mmol/L (21-32); CREATININE 1.9 mg/dL (0.55-1.3); GLUCOSE,RANDOM 147 mg/dL (74-106); MAGNESIUM 2.9 mg/dL (1.8-2.4); POTASSIUM 3.3 mmol/L (3.5-5.1); SGOT/AST 62 U/L (15-37); SGPT/ALT 48 U/L (13-61); SODIUM 134 mmol/L (136-145); TOT PROT 6.2 g/dl (6.4-8.2)
--- NOTE | 2019-03-12 08:36 | PN ---
Progress Note, Physician - Current Medication List Current Medications: Active Medications Amlodipine Besylate (Norvasc -) 5 mg PO DAILY [facility] Last Admin: 03/11/19 12:04 Dose: Not Given Atorvastatin Calcium (Lipitor -) 40 mg PO HS [facility] Last Admin: 03/12/19 00:18 Dose: Not Given Heparin Sodium (Porcine) (Heparin -) 5,000 unit SQ BID [facility] Last Admin: 03/11/19 21:55 Dose: 5,000 unit Sodium Chloride (Normal Saline -) 1,000 mls @ 75 mls/hr IV ASDIR [facility] Last Admin: 03/11/19 12:04 Dose: 75 mls/hr Ceftriaxone Sodium 2 gm/ (Dextrose) 100 mls @ 200 mls/hr IVPB DAILY [facility] Last Admin: 03/11/19 21:55 Dose: 200 mls/hr Doxycycline Hyclate 100 mg/ (Dextrose) 100 mls @ 50 mls/hr IVPB BID [facility] Last Admin: 03/12/19 00:17 Dose: 50 mls/hr Methylprednisolone Sodium Succinate (Solu-Medrol -) 40 mg IVPUSH Q8H-IV [facility] Last Admin: 03/12/19 02:13 Dose: 40 mg Metoprolol Tartrate (Lopressor -) 25 mg PO BID [facility] Last Admin: 03/12/19 00:17 Dose: Not Given Valsartan (Diovan -) 160 mg PO DAILY [facility] Last Admin: 03/11/19 11:01 Dose: Not Given - Objective Vital Signs: Vital Signs Temperature 97.8 F 03/12/19 01:35 Pulse Rate 62 03/12/19 01:35 Respiratory Rate 20 03/12/19 01:35 Blood Pressure 114/55 L 03/12/19 01:35 O2 Sat by Pulse Oximetry (%) 97 03/11/19 23:10 Cardiovascular: Yes: S1, S2 Respiratory: Yes: Diminished, On BiPap Gastrointestinal: Yes: Normal Bowel Sounds, Soft Edema: No Labs: CBC, BMP 03/12/19 07:08 03/12/19 07:08 INR, PTT INR 1.16 (0.83-1.09) H 03/10/19 21:35 Problem List - Problems (1) Elevated troponin Assessment/Plan: maybe demand tele cardio on board Code(s): R74.8 - ABNORMAL LEVELS OF OTHER SERUM ENZYMES (2) Pneumonia Assessment/Plan: iv abx and steroids leukocytosis oxygen via nasal canula ID and pulm on board swallow eval Code(s): J18.9 - PNEUMONIA, UNSPECIFIED ORGANISM (3) Paroxysmal A-fib Assessment/Plan: monitor on tele ac--start eliquis holter echo Code(s): I48.0 - PAROXYSMAL ATRIAL FIBRILLATION (4) ANI (acute kidney injury) Assessment/Plan: repleted k repeat labs renal sono, UA corbin cath renal eval gentle hydration Code(s): N17.9 - ACUTE KIDNEY FAILURE, UNSPECIFIED (5) Agitation Assessment/Plan: secondary to infectious process patient needs a sitter psych eval Code(s): R45.1 - RESTLESSNESS AND AGITATION Code(s): N17.9 - ACUTE KIDNEY FAILURE, UNSPECIFIED
[2019-03-12] MEDS ORDERED: DEXTROSE 5%-WATER 100 ML IVPB ONE (08:57)
[2019-03-12] MEDS: CEFTRIAXONE 2 GM in DEXTROSE 5%-WATER 100 ML IVPB SCH (09:31)
[2019-03-12] MEDS: APIXABAN 2.5 MG TABLET PO SCH ×2 (09:32→22:38)
[2019-03-12] MEDS: VALSARTAN 160 MG TABLET (UD) PO SCH (09:32)
[2019-03-12] MEDS: amLODIPine BESYLATE 5 MG TABLET (FP) PO SCH (09:32)
[2019-03-12] MEDS ORDERED: AZITHROMYCIN IVPB 500 MG/250 ML BAG IVPB SCH (10:00)
[2019-03-12 10:02] LABS: ANISOCYTOSIS 1+; MACROCYTOSIS 0; PLATELET ESTIMATE NORMAL
--- NOTE | 2019-03-12 10:47 | PN ---
Progress Note, Physician History of Present Illness: seen and examined today in nad. received sedatives early this am. asleep now. - Current Medication List Current Medications: Active Medications Amlodipine Besylate (Norvasc -) 5 mg PO DAILY [facility] Last Admin: 03/12/19 09:32 Dose: Not Given Apixaban (Eliquis -) 2.5 mg PO BID [facility] Last Admin: 03/12/19 09:32 Dose: Not Given Atorvastatin Calcium (Lipitor -) 40 mg PO HS [facility] Last Admin: 03/12/19 00:18 Dose: Not Given Sodium Chloride (Normal Saline -) 1,000 mls @ 75 mls/hr IV ASDIR [facility] Last Admin: 03/11/19 12:04 Dose: 75 mls/hr Ceftriaxone Sodium 2 gm/ (Dextrose) 100 mls @ 200 mls/hr IVPB DAILY [facility] Last Admin: 03/12/19 09:31 Dose: 200 mls/hr Doxycycline Hyclate 100 mg/ (Dextrose) 100 mls @ 50 mls/hr IVPB BID [facility] Last Admin: 03/12/19 00:17 Dose: 50 mls/hr Methylprednisolone Sodium Succinate (Solu-Medrol -) 40 mg IVPUSH Q8H-IV [facility] Last Admin: 03/12/19 09:32 Dose: 40 mg Metoprolol Tartrate (Lopressor -) 25 mg PO BID [facility] Last Admin: 03/12/19 09:32 Dose: Not Given Valsartan (Diovan -) 160 mg PO DAILY [facility] Last Admin: 03/12/19 09:32 Dose: Not Given - Objective Vital Signs: Vital Signs Temperature 98.1 F 03/12/19 09:54 Pulse Rate 67 03/12/19 09:54 Respiratory Rate 20 03/12/19 09:54 Blood Pressure 122/63 03/12/19 09:54 O2 Sat by Pulse Oximetry (%) 96 03/12/19 09:00 Constitutional: Yes: No Distress, Calm HENT: Yes: Atraumatic Cardiovascular: Yes: Regular Rate and Rhythm, S1, S2. No: Bradycardia, Tachycardia, Pulse Irregular, Bruit, JVD, Gallop, Murmur, Rub, S3, S4, Varicosities Respiratory: Yes: Regular. No: Rales, Rhonchi, Wheezes Gastrointestinal: Yes: Normal Bowel Sounds, Soft Edema: No Peripheral Pulses WNL: Yes Neurological: No: Alert, Oriented Psychiatric: No: Alert, Oriented Labs: CBC, BMP 03/12/19 07:08 03/12/19 07:08 INR, PTT INR 1.16 (0.83-1.09) H 03/10/19 21:35 - ....Imaging Chest X-ray: Report Reviewed, Image Reviewed EKG: Report Reviewed, Image Reviewed Other: Report Reviewed, Image Reviewed (tele-NSR, episodes of PSVT early this am ) Assessment/Plan 88 year old female with a PMH of HTN, HLD, and dCHF. Echocardiogram 60 - 65% with diastolic dysfunction. She is a long time and current cigarette. smoker. She presents now with progressive weakness and a cough. EKG is NSR without acute changes. CXR has basilar changes. WBC count 28 Troponin 0.13 - 0.09 BNP 6161 Positive Troponin This represents demand ischemia (a type 2 NM) and not an acute copronary syndrome This may be secondary to an infection, agree with Ceftriaxone for now Continue metoprolol tartrate 25 mg PO BID Follow troponin trends HTN/HLD Continue valsartan/amlodipine Continue atorvastatin Arrhythmia -noted early this am during period of agitation -telemetry reviewed appears more c/w PSVT than Afib -ekg done this am showed NSR -cont to monitor tele to further evaluate -if confirmed PSVT and not Afib, does not require full AC
--- NOTE | 2019-03-12 11:16 | PN ---
Progress Note (short form) - Note Progress Note: PULMONARY CONSULTATION DICTATED 03/12/19 IMP ACUTE HYPOXEMIC/HYPERCAPNEIC RESPIRATORY FAILURE BILATERAL PNEUMONIA PULMONARY NODULES ? INFECTIOUS,?MALIGNANT + TROPONIN DIASTOLIC HF PAF ANI TOBACCO ABUSE PLAN ABX PER ID INHALED BRONCHODILATORS STEROIDS O2 NIPPV NEEDED INHALED BRONCHODILATORS F/U ABGS F/U CHEST X-RAYS IVF CULTURES MONITOR LYTES,RENAL FUNCTION F/U CHEST CT 4-6 WKS TO CONFIRM RESOLUTION OF INFILTRATES AND NODULES, IN NO CHANGE PET SCAN DR MOROCHO Problem List - Problems (1) Acute respiratory failure with hypoxia and hypercapnia Code(s): J96.01 - ACUTE RESPIRATORY FAILURE WITH HYPOXIA; J96.02 - ACUTE RESPIRATORY FAILURE WITH HYPERCAPNIA (2) ANI (acute kidney injury) Code(s): N17.9 - ACUTE KIDNEY FAILURE, UNSPECIFIED (3) Elevated troponin Code(s): R74.8 - ABNORMAL LEVELS OF OTHER SERUM ENZYMES (4) Hyponatremia Code(s): E87.1 - HYPO-OSMOLALITY AND HYPONATREMIA (5) Pneumonia Code(s): J18.9 - PNEUMONIA, UNSPECIFIED ORGANISM
--- NOTE | 2019-03-12 11:18 | PN ---
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 INFECTIOUS,?MALIGNANT + TROPONIN ANI TOBACCO ABUSE Now on BIPAP/sleeping. Chopped/nectar ordered for when of BIPAP, if not SOB, and alert. To reassess/determine indication for MBS
[2019-03-12 11:27] LABS: ARTERIAL BLD GAS O2 SATURATION 92.9 % (95-98); ARTERIAL BLOOD GAS BASE EXCESS 2.5 meq/l (-2-2); ARTERIAL BLOOD GAS PCO2 51.8 mmHg (35-45); ARTERIAL BLOOD GAS PO2 71.6 mmHg (80-105); ARTERIAL BLOOD GAS pH 7.36 (7.35-7.45)
[2019-03-12 11:35] LABS: ALLENS TEST POSITIVE
--- NOTE | 2019-03-12 12:18 | CONS ---
DATE OF CONSULTATION: 03/12/2019 REFERRING PHYSICIAN: Sommer Neville MD History is obtained from the chart. The patient is an 88-year-old white female, past medical history of hypertension, hyperlipidemia, diastolic heart failure, dementia, admitted to [facility] with generalized weakness, cough, and just shortness of breath for a few days. Patient was sent to the emergency room with the above. On admission, she was noted to be hypoxemic. She was placed on BiPAP. She underwent a CT scan of the chest, which revealed bilateral pneumonia; nonspecific pulmonary nodules, in the right 1.3 x 1 cm horizontal fissure, and 1.7 x 1.4 nodular capacity in the posterior wall of the right mainstem bronchus. She was transferred up to medical telemetry unit for further monitoring. On admission, she was placed on broad-spectrum antibiotics. The patient has a history of tobacco use and apparently currently still smokes. No further history is available at this time. Past medical history, again, includes hypertension, hyperlipidemia, diastolic heart failure, with grade 1 diastolic dysfunction, PAF. SOCIAL HISTORY: Positive tobacco use. Current medications include Solu-Medrol, Diovan, ceftriaxone, doxycycline, Eliquis, Lopressor, Norvasc, normal saline, Lipitor. REVIEW OF SYSTEMS: Unable to obtain. PHYSICAL EXAMINATION: General: The patient is an elderly white female, well developed, well nourished, lethargic, on BiPAP. Vital Signs: She is currently afebrile. Blood pressure is 122/63. Respiratory rate 20. O2 saturation is 96% on BiPAP 40% O2. HEENT: Normocephalic, atraumatic. Neck: Supple. Heart: Irregularly irregular. S1, S2. Chest: A few scattered bilateral rhonchi. Abdomen: Soft. Bowel sounds are positive. Extremities: No cyanosis, edema. LABORATORY DATA: BUN 77, creatinine 1.9, magnesium 2.9. AST is 62. BNP is 6161. Potassium 3.3, sodium 134. WBC is 16.5, hemoglobin 12.5, hematocrit 36.9, with a platelet count of 332,000. Blood gas: pH 7.37, pCO2 of 48, pO2 of 57, bicarbonate of 27, saturation of 87; that was on 4 L nasal cannula. Chest CT: Extensive bilateral consolidation, left upper lobe anterior segment and right upper lobe posterior segment infiltrates, nonspecific opacities in the right lung. IMPRESSION: Acute hypoxemic hypercapnic respiratory failure secondary to: 1. Bilateral pneumonia. 2. Pulmonary nodules, likely infectious, cannot exclude possible malignant. 3. Positive troponin. 4. Acute kidney injury. 5. Tobacco use. 6. Paroxysmal atrial fibrillation. 7. Diastolic heart failure. PLAN: Broad-spectrum antibiotics as per Infectious Disease, supplemental O2 to maintain O2 saturation, and IPPV as needed with increasing respiratory distress, inhaled bronchodilators, IV fluids. Obtain cultures, cold agglutinins, Legionella urinary antigen. Monitor electrolytes, renal function. Trend troponins. Replete electrolytes. Obtain followup chest CT in 4 to 6 weeks to confirm resolution of infiltrates and nodules. If no change, obtain PET scan. OWEN MOROCHO M.D. [id number]
[2019-03-12] MEDS: SODIUM CHLORIDE 1,000 ML IV SCH (12:25)
--- NOTE | 2019-03-12 12:25 | EKG ---
Test Reason : Blood Pressure : / mmHG Vent. Rate : 062 BPM Atrial Rate : 062 BPM P-R Int : 164 ms QRS Dur : 088 ms QT Int : 418 ms P-R-T Axes : 066 008 075 degrees QTc Int : 424 ms NORMAL SINUS RHYTHM NONSPECIFIC T WAVE ABNORMALITY ABNORMAL ECG Confirmed by MD ANGELA, KATALINA ([id number]) on 03/12/2019 12:25:35 PM Referred By: Jessica DIXON Confirmed By:KATALINA MILLER MD
--- NOTE | 2019-03-12 13:32 | CONSULT ---
Consult - text type - Consultation Consultation Note: Renal Consult for ANI vs. CKD This is a 88 year old woman with hx of hypertension, hyperlipidemia, CHF, dementia, smoker who presented with weakness and cough and noted to have Cr of 1.9. Pt seen and examined at the bedside. Denies any hx of CKD, kidney stones. NO recent contrast exposure. Denies any flank pain, dysuria, hematuria. Denies any NSAID use. Reports appetite has been poor for the past week. No N/V/ D. No fever or chills. on BIPAP currently. PMHx: as above Allergies: NDKA Family Hx: NC Social Hx: + smoker ROS: as per HPI, all other pertinent ros negative Home Medications Medication Instructions Recorded Amlodipine Besylate 10 mg PO DAILY 03/11/19 Aspirin 81 mg PO DAILY 03/11/19 Atorvastatin Ca [Lipitor] 40 mg PO HS 03/11/19 Cholecalciferol (Vitamin D3) 2,000 unit PO DAILY 03/11/19 [Vitamin D] Cyanocobalamin (Vitamin B-12) 1,000 mcg PO DAILY 03/11/19 [Vitamin B-12] Donepezil HCl 10 mg PO DAILY 03/11/19 Escitalopram Oxalate [Lexapro -] 10 mg PO DAILY 03/11/19 Folic Acid 1 mg PO DAILY 03/11/19 Furosemide 40 mg PO DAILY 03/11/19 Memantine HCl [Memantine HCl ER] 14 mg PO DAILY 03/11/19 Metoprolol Succinate [Kapspargo 25 mg PO DAILY 03/11/19 Sprinkle] Potassium Chloride 20 meq PO DAILY 03/11/19 Vital Signs Temperature 98.1 F 03/12/19 09:54 Pulse Rate 67 03/12/19 09:54 Respiratory Rate 20 03/12/19 09:54 Blood Pressure 122/63 03/12/19 09:54 O2 Sat by Pulse Oximetry (%) 96 03/12/19 09:00 Intake & Output 03/09/19 03/10/19 03/11/19 03/12/19 23:59 23:59 23:59 23:59 Intake Total 765 Balance 765 Weight 72.575 kg NAD awake and alert neck supple, no JVD RRR, no M/R CTA, no rales or wheeze soft NT/ND, Obese No LE edema CBC, BMP 03/12/19 07:08 04/23/19 07:08 Laboratory Tests 03/12/19 03/12/19 07:08 07:08 Hemoglobin A1c % 6.9 H Calcium 9.4 Magnesium 2.9 H Albumin 1.8 L Current Medications Amlodipine Besylate (Norvasc -) 5 mg PO DAILY [facility] Last Admin: 03/12/19 09:32 Dose: Not Given Apixaban (Eliquis -) 2.5 mg PO BID [facility] Last Admin: 03/12/19 09:32 Dose: Not Given Atorvastatin Calcium (Lipitor -) 40 mg PO HS [facility] Last Admin: 03/12/19 00:18 Dose: Not Given Sodium Chloride (Normal Saline -) 1,000 mls @ 75 mls/hr IV ASDIR [facility] Last Admin: 03/12/19 12:25 Dose: Not Given Ceftriaxone Sodium 2 gm/ (Dextrose) 100 mls @ 200 mls/hr IVPB DAILY [facility] Last Admin: 03/12/19 09:31 Dose: 200 mls/hr Doxycycline Hyclate 100 mg/ (Dextrose) 100 mls @ 50 mls/hr IVPB BID [facility] Last Admin: 03/12/19 13:17 Dose: 50 mls/hr Methylprednisolone Sodium Succinate (Solu-Medrol -) 40 mg IVPUSH Q8H-IV [facility] Last Admin: 03/12/19 09:32 Dose: 40 mg Metoprolol Tartrate (Lopressor -) 25 mg PO BID [facility] Last Admin: 03/12/19 09:32 Dose: Not Given Valsartan (Diovan -) 160 mg PO DAILY [facility] Last Admin: 03/12/19 09:32 Dose: Not Given 88 year old woman with hx of hypertension, hyperlipidemia, CHF, dementia, smoker who presented with weakness and cough and noted to have Cr of 1.9. #ANI vs. CKD #Hydronephrosis #SOB #COPD exacerbation #Hypertension #HLD Renal function stable over the pas 24 hours. Will need to obtain baseline cr form PMD office. Renal US showed left hydronephrosis which was also noted on prior imaging of Abd. Given that kidney also shows significant cortical atrophy this is likely to be long standing. Continue IVF x 24 more hours trend renal function and electrolytes continue steroids and Abx as per pulmonary BIPAP support BP at goal, continue amlodipine, metoprolol and valsartan for now Avoid nephrotoxins and IV contrast Thank you Irving King DO
--- NOTE | 2019-03-12 15:38 | CON.PSY ---
Psychiatry Consult Chief Complaint: 88 alba old female admitted with Pneumonia, has HTN, ? [id number]. Shew apparantly became aggressive and was given atival IM. She, according to staff has been calmer and is on BY Pap. - Previous Psychiatric Treatment Outpatient: None Inpatient: None - Previous Substance Abuse Treatment Outpatient: None Inpatient: None - Current Medications Current Medications: Active Medications Amlodipine Besylate (Norvasc -) 5 mg PO DAILY [facility] Last Admin: 03/12/19 09:32 Dose: Not Given Apixaban (Eliquis -) 2.5 mg PO BID [facility] Last Admin: 03/12/19 09:32 Dose: Not Given Atorvastatin Calcium (Lipitor -) 40 mg PO HS [facility] Last Admin: 03/12/19 00:18 Dose: Not Given Sodium Chloride (Normal Saline -) 1,000 mls @ 75 mls/hr IV ASDIR [facility] Last Admin: 03/12/19 12:25 Dose: Not Given Ceftriaxone Sodium 2 gm/ (Dextrose) 100 mls @ 200 mls/hr IVPB DAILY [facility] Last Admin: 03/12/19 09:31 Dose: 200 mls/hr Doxycycline Hyclate 100 mg/ (Dextrose) 100 mls @ 50 mls/hr IVPB BID [facility] Last Admin: 03/12/19 13:17 Dose: 50 mls/hr Methylprednisolone Sodium Succinate (Solu-Medrol -) 40 mg IVPUSH Q8H-IV [facility] Last Admin: 03/12/19 09:32 Dose: 40 mg Metoprolol Tartrate (Lopressor -) 25 mg PO BID [facility] Last Admin: 03/12/19 09:32 Dose: Not Given Valsartan (Diovan -) 160 mg PO DAILY [facility] Last Admin: 03/12/19 09:32 Dose: Not Given - Allergies Allergies: Allergies Allergy/AdvReac Type Severity Reaction Status Date / Time No Known Allergies Allergy Verified 03/10/19 21:52 - Current Living Status Usual Living Arrangement: With Significant Other - Current Mental Status Evaluation Appearance: Disheveled Attitude: Guarded - Affect Affect: Constrictive Appropriateness: Not Appropriate - Mood Mood: Euthymic - Speech/Language Expressive: Delayed - Psychomotor Activity Psychomotor Activity: Slowed - Thought Process Thought Process: Circumstantial - Thought Content Hallucinations: Absent Delusions: Absent - Self Perception Self Perception: No Impairment - Cognition Attention: Alert Orientation: Time Memory, Immediate Recall: Intact Memory, Short Term: 1/3 Memory, Remote with Promptin/3 - Concentration Serial Sevens Intact: No Simple Calculations Intact: No - Abstraction Proverb Interpretation: Impaired Judgement: Moderately Impaired - Insight Insight: Impaired - Suicidal Ideation Suicidal Ideation: No - Homicidal Ideation Homicidal Ideation: No Assessment/Plan 1) No Psych meds at this time. 2) re Eval as needed.
--- NOTE | 2019-03-12 17:33 | PN ---
Progress Note (short form) - Note Progress Note: resting comfortably on bipap Vital Signs Period Temp Pulse Resp BP Sys/Angel Pulse Ox Last 24 Hr 97.1 F-98.1 F 58-81 20-20 104-133/51-63 93-99 cor-rrr lungs decreased bs at bases abd soft, nt ext no edema CBC, BMP 03/12/19 07:08 03/12/19 07:08 Microbiology 03/11/19 09:41 Urine - Urine - Catheterized Urine Culture - Final NO GROWTH OBTAINED 03/10/19 21:35 Blood - Peripheral Venous Blood Culture - Preliminary NO GROWTH OBTAINED AFTER 24 HOURS, INCUBATION TO CONTINUE FOR 4 DAYS. 03/10/19 21:35 Blood - Peripheral Venous Blood Culture - Preliminary NO GROWTH OBTAINED AFTER 24 HOURS, INCUBATION TO CONTINUE FOR 4 DAYS. Current Medications Amlodipine Besylate (Norvasc -) 5 mg PO DAILY [facility] Last Admin: 03/12/19 09:32 Dose: Not Given Apixaban (Eliquis -) 2.5 mg PO BID [facility] Last Admin: 03/12/19 09:32 Dose: Not Given Atorvastatin Calcium (Lipitor -) 40 mg PO HS [facility] Last Admin: 03/12/19 00:18 Dose: Not Given Sodium Chloride (Normal Saline -) 1,000 mls @ 75 mls/hr IV ASDIR [facility] Last Admin: 03/12/19 12:25 Dose: Not Given Ceftriaxone Sodium 2 gm/ (Dextrose) 100 mls @ 200 mls/hr IVPB DAILY [facility] Last Admin: 03/12/19 09:31 Dose: 200 mls/hr Doxycycline Hyclate 100 mg/ (Dextrose) 100 mls @ 50 mls/hr IVPB BID [facility] Last Admin: 03/12/19 13:17 Dose: 50 mls/hr Methylprednisolone Sodium Succinate (Solu-Medrol -) 40 mg IVPUSH Q8H-IV [facility] Last Admin: 03/12/19 09:32 Dose: 40 mg Metoprolol Tartrate (Lopressor -) 25 mg PO BID [facility] Last Admin: 03/12/19 09:32 Dose: Not Given Valsartan (Diovan -) 160 mg PO DAILY [facility] Last Admin: 03/12/19 09:32 Dose: Not Given a/p CAP- rocephin/doxycycline, has prolonged qtc ?renal insufficiency- check with PMD baseline renal function check renal sonogram-chronic hydronephrosis on right wbc trending down f/u urinary antigens Problem List - Problems (1) Pneumonia Code(s): J18.9 - PNEUMONIA, UNSPECIFIED ORGANISM (2) Hyponatremia Code(s): E87.1 - HYPO-OSMOLALITY AND HYPONATREMIA (3) Hypokalemia Code(s): E87.6 - HYPOKALEMIA (4) Renal insufficiency Code(s): N28.9 - DISORDER OF KIDNEY AND URETER, UNSPECIFIED
[2019-03-13] MEDS: methylPREDNISolone NA SUCC 40 MG/1 ML VIAL IVPUSH SCH ×4 (02:26→22:53)
[2019-03-13 07:28] LABS: ARTERIAL BLD GAS O2 SATURATION 95.6 % (95-98); ARTERIAL BLOOD GAS BASE EXCESS 2.5 meq/l (-2-2); ARTERIAL BLOOD GAS PCO2 49.7 mmHg (35-45); ARTERIAL BLOOD GAS PO2 82.8 mmHg (80-105); ARTERIAL BLOOD GAS pH 7.37 (7.35-7.45)
[2019-03-13 07:34] LABS: ALLENS TEST POSITIVE
[2019-03-13] MEDS ORDERED: DEXTROSE 5%-WATER 100 ML IVPB ONE (09:02)
[2019-03-13 09:56] LABS: BASO % 0.1 % (0-2.0); HEMATOCRIT 35.9 % (32.4-45.2); LYMPH % 1.7 % (8-40); MCH 29.7 pg (25.7-33.7); MCHC 33.4 g/dl (32.0-36.0); MEAN CELL VOLUME 88.9 fl (80-96); MEAN PLT VOLUME 8.9 fl (7.5-11.1); MONO % 3.9 % (3.8-10.2); NEUT % 94.3 % (42.8-82.8); PLATELET COUNT 366 K/MM3 (134-434); RBC 4.03 M/mm3 (3.60-5.2); RDW 15.4 % (11.6-15.6); WHITE BLOOD COUNT 23.7 K/mm3 (4.0-10.0)
--- NOTE | 2019-03-13 10:03 | PN ---
Progress Note, Physician - Current Medication List Current Medications: Active Medications Amlodipine Besylate (Norvasc -) 5 mg PO DAILY [facility] Last Admin: 03/12/19 09:32 Dose: Not Given Apixaban (Eliquis -) 2.5 mg PO BID [facility] Last Admin: 03/12/19 22:38 Dose: Not Given Atorvastatin Calcium (Lipitor -) 40 mg PO HS [facility] Last Admin: 03/12/19 22:38 Dose: Not Given Sodium Chloride (Normal Saline -) 1,000 mls @ 75 mls/hr IV ASDIR [facility] Last Admin: 03/12/19 12:25 Dose: Not Given Ceftriaxone Sodium 2 gm/ (Dextrose) 100 mls @ 200 mls/hr IVPB DAILY [facility] Last Admin: 03/12/19 09:31 Dose: 200 mls/hr Doxycycline Hyclate 100 mg/ (Dextrose) 100 mls @ 50 mls/hr IVPB BID [facility] Last Admin: 03/12/19 22:43 Dose: 50 mls/hr Methylprednisolone Sodium Succinate (Solu-Medrol -) 40 mg IVPUSH Q8H-IV [facility] Last Admin: 03/13/19 02:26 Dose: 40 mg Metoprolol Tartrate (Lopressor -) 25 mg PO BID [facility] Last Admin: 03/12/19 22:39 Dose: Not Given Valsartan (Diovan -) 160 mg PO DAILY [facility] Last Admin: 03/12/19 09:32 Dose: Not Given - Objective Vital Signs: Vital Signs Temperature 97.8 F 03/13/19 09:19 Pulse Rate 60 03/13/19 09:19 Respiratory Rate 20 03/13/19 09:19 Blood Pressure 113/6 L 03/13/19 09:19 O2 Sat by Pulse Oximetry (%) 96 03/13/19 09:00 Cardiovascular: Yes: Regular Rate and Rhythm Respiratory: Yes: Regular, CTA Bilaterally Gastrointestinal: Yes: Normal Bowel Sounds, Soft Labs: CBC, BMP 03/13/19 09:00 INR, PTT INR 1.16 (0.83-1.09) H 03/10/19 21:35 Problem List - Problems (1) Elevated troponin Assessment/Plan: maybe demand tele cardio on board Code(s): R74.8 - ABNORMAL LEVELS OF OTHER SERUM ENZYMES (2) Pneumonia Assessment/Plan: iv abx and steroids leukocytosis oxygen via nasal canula ID and pulm on board swallow eval Code(s): J18.9 - PNEUMONIA, UNSPECIFIED ORGANISM (3) Paroxysmal A-fib Assessment/Plan: monitor on tele ac--start eliquis holter TO CONFIRM CARDIO NOTED echo Code(s): I48.0 - PAROXYSMAL ATRIAL FIBRILLATION (4) ANI (acute kidney injury) Assessment/Plan: repleted k repeat labs renal sono, UA corbin cath renal eval gentle hydration Code(s): N17.9 - ACUTE KIDNEY FAILURE, UNSPECIFIED (5) Agitation Assessment/Plan: secondary to infectious process patient needs a sitter psych eval Code(s): R45.1 - RESTLESSNESS AND AGITATION Code(s): N17.9 - ACUTE KIDNEY FAILURE, UNSPECIFIED
[2019-03-13] MEDS: CEFTRIAXONE 2 GM in DEXTROSE 5%-WATER 100 ML IVPB SCH (10:08)
[2019-03-13] MEDS: DOXYCYCLINE INJECTION 100 MG in DEXTROSE 5%-WATER - 100 ML IVPB SCH ×2 (10:10→22:54)
[2019-03-13] MEDS: APIXABAN 2.5 MG TABLET PO SCH ×2 (10:11→22:53)
[2019-03-13] MEDS: VALSARTAN 160 MG TABLET (UD) PO SCH (10:11)
[2019-03-13] MEDS: amLODIPine BESYLATE 5 MG TABLET (FP) PO SCH (10:11)
[2019-03-13] MEDS: METOPROLOL TARTRATE 25 MG TABLET (FP) PO SCH ×2 (10:11→22:53)
[2019-03-13 10:26] LABS: ALBUMIN 1.8 g/dl (3.4-5.0); ALK PHOS 67 U/L (45-117); ANION GAP 8 MMOL/L (8-16); BILIRUBIN,TOTAL 0.4 mg/dL (0.2-1); BLOOD UREA NITROGEN 81 mg/dL (7-18); CALCIUM 9.8 mg/dL (8.5-10.1); CHLORIDE 103 mmol/L (98-107); CO2 30 mmol/L (21-32); CREATININE 1.7 mg/dL (0.55-1.3); GLUCOSE,RANDOM 165 mg/dL (74-106); MAGNESIUM 2.9 mg/dL (1.8-2.4); POTASSIUM 3.4 mmol/L (3.5-5.1); SGOT/AST 53 U/L (15-37); SGPT/ALT 51 U/L (13-61); SODIUM 140 mmol/L (136-145)
--- NOTE | 2019-03-13 11:01 | PN ---
Progress Note, Physician History of Present Illness: pulmonary alert,comfortable on nasal o2,-resp distress - Current Medication List Current Medications: Active Medications Amlodipine Besylate (Norvasc -) 5 mg PO DAILY [facility] Last Admin: 03/13/19 10:11 Dose: 5 mg Apixaban (Eliquis -) 2.5 mg PO BID [facility] Last Admin: 03/13/19 10:11 Dose: 2.5 mg Atorvastatin Calcium (Lipitor -) 40 mg PO HS [facility] Last Admin: 03/12/19 22:38 Dose: Not Given Ceftriaxone Sodium 2 gm/ (Dextrose) 100 mls @ 200 mls/hr IVPB DAILY [facility] Last Admin: 03/13/19 10:08 Dose: 200 mls/hr Doxycycline Hyclate 100 mg/ (Dextrose) 100 mls @ 50 mls/hr IVPB BID [facility] Last Admin: 03/13/19 10:10 Dose: 50 mls/hr Methylprednisolone Sodium Succinate (Solu-Medrol -) 40 mg IVPUSH BID [facility] Last Admin: 03/13/19 10:11 Dose: 40 mg Metoprolol Tartrate (Lopressor -) 25 mg PO BID [facility] Last Admin: 03/13/19 10:11 Dose: 25 mg Nystatin (Mycostatin Cream -) 1 applic TP BID [facility] Valsartan (Diovan -) 160 mg PO DAILY [facility] Last Admin: 03/13/19 10:11 Dose: 160 mg - Objective Vital Signs: Vital Signs Temperature 97.8 F 03/13/19 09:19 Pulse Rate 60 03/13/19 09:19 Respiratory Rate 20 03/13/19 09:19 Blood Pressure 113/6 L 03/13/19 09:19 O2 Sat by Pulse Oximetry (%) 96 03/13/19 09:00 Constitutional: Yes: Well Nourished, Calm Eyes: Yes: WNL HENT: Yes: WNL Neck: Yes: WNL Cardiovascular: Yes: Regular Rate and Rhythm, S1, S2 Respiratory: Yes: Wheezes (bilateral wheezes) Gastrointestinal: Yes: Normal Bowel Sounds, Soft Extremities: Yes: WNL Edema: No Labs: CBC, BMP 03/13/19 09:00 03/13/19 09:00 INR, PTT INR 1.16 (0.83-1.09) H 03/10/19 21:35 Laboratory Tests 03/13/19 07:20 ABG pH 7.37 ABG pCO2 at Pt Temp 49.7 H ABG pO2 at Pt Temp 82.8 ABG HCO3 27.9 H ABG O2 Sat (Measured) 95.6 Oxygen Flow Rate 40% Vent Rate 14 Pressure Support Vent 10/25 Problem List - Problems (1) Acute respiratory failure with hypoxia and hypercapnia Code(s): J96.01 - ACUTE RESPIRATORY FAILURE WITH HYPOXIA; J96.02 - ACUTE RESPIRATORY FAILURE WITH HYPERCAPNIA (2) ANI (acute kidney injury) Code(s): N17.9 - ACUTE KIDNEY FAILURE, UNSPECIFIED (3) Elevated troponin Code(s): R74.8 - ABNORMAL LEVELS OF OTHER SERUM ENZYMES (4) Hyponatremia Code(s): E87.1 - HYPO-OSMOLALITY AND HYPONATREMIA (5) Pneumonia Code(s): J18.9 - PNEUMONIA, UNSPECIFIED ORGANISM Assessment/Plan IMP ACUTE HYPOXEMIC/HYPERCAPNEIC RESPIRATORY FAILURE IMPROVING BILATERAL PNEUMONIA PULMONARY NODULES ? INFECTIOUS,?MALIGNANT + TROPONIN DIASTOLIC HF PAF ANI TOBACCO ABUSE PLAN ABX PER ID INHALED BRONCHODILATORS STEROIDS SAME DOSE O2 NIPPV NEEDED INHALED BRONCHODILATORS F/U CHEST X-RAYS IVF MONITOR LYTES,RENAL FUNCTION F/U CHEST CT 4-6 WKS TO CONFIRM RESOLUTION OF INFILTRATES AND NODULES, IN NO CHANGE PET SCAN DR MOROCHO Problem List - Problems (1) Acute respiratory failure with hypoxia and hypercapnia Code(s): J96.01 - ACUTE RESPIRATORY FAILURE WITH HYPOXIA; J96.02 - ACUTE RESPIRATORY FAILURE WITH HYPERCAPNIA (2) ANI (acute kidney injury) Code(s): N17.9 - ACUTE KIDNEY FAILURE, UNSPECIFIED (3) Elevated troponin Code(s): R74.8 - ABNORMAL LEVELS OF OTHER SERUM ENZYMES (4) Hyponatremia Code(s): E87.1 - HYPO-OSMOLALITY AND HYPONATREMIA (5) Pneumonia Code(s): J18.9 - PNEUMONIA, UNSPECIFIED ORGANISM
[2019-03-13 11:07] LABS: ANISOCYTOSIS 0; MACROCYTOSIS 0; PLATELET ESTIMATE NORMAL
--- NOTE | 2019-03-13 11:29 | PN ---
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 Swallowing reassessed with overt tolerance on sips of thin water. For MBS to r/o Silent Aspiration and provide most liberal diet pt can tolerate..
--- NOTE | 2019-03-13 13:24 | CONSULT ---
Consult Consult Specialty:: PM&R Dr Lane for Dr Melendez Reason for Consultation:: deconditioning - History of Present Illness Chief Complaint: tired History of Present Illness: This is an 88 year old woman with a medical history of dementia, CHF, HTN, HLD, who presented to the ED 03/10/19 with generalized weakness, cough and SOB x1 day. She was diagnosed with acute hypoxemic hypercapnic respiratory failure for which she was seen by Pulm; ID was consulted for PNA as well. Cardiology was consulted for elevated tropinins, who felt elevation was due to demand ischemia as opposed to ACS. Renal was consulted for ANI vs CKD as well as hydronephrosis. Psych was consulted as well. She was seen by PT, and on 03/13/19 she was Minimum Assist in Transfers, and ambulated 5 small steps Contact Guard with Rolling Walker. Physiatry is being consulted for further recommendations. - Alcohol/Substance Use Hx Alcohol Use: Yes (RARE) - Smoking History Smoking history: Current every day smoker Have you smoked in the past 12 months: No Aproximately how many cigarettes per day: 10 - Social History Usual Living Arrangement: Alone (alone in apartment without steps) ADL: Independent (without AD) Home Medications - Allergies Allergies/Adverse Reactions: Allergies Allergy/AdvReac Type Severity Reaction Status Date / Time No Known Allergies Allergy Verified 03/10/19 21:52 - Home Medications Home Medications: Ambulatory Orders Amlodipine Besylate 10 mg PO DAILY 03/11/19 Aspirin 81 mg PO DAILY 03/11/19 Atorvastatin Ca [Lipitor] 40 mg PO HS 03/11/19 Cholecalciferol (Vitamin D3) [Vitamin D] 2,000 unit PO DAILY 03/11/19 Cyanocobalamin (Vitamin B-12) [Vitamin B-12] 1,000 mcg PO DAILY 03/11/19 Donepezil HCl 10 mg PO DAILY 03/11/19 Escitalopram Oxalate [Lexapro -] 10 mg PO DAILY 03/11/19 Folic Acid 1 mg PO DAILY 03/11/19 Furosemide 40 mg PO DAILY 03/11/19 Memantine HCl [Memantine HCl ER] 14 mg PO DAILY 03/11/19 Metoprolol Succinate [Kapspargo Sprinkle] 25 mg PO DAILY 03/11/19 Potassium Chloride 20 meq PO DAILY 03/11/19 Review of Systems Findings/Remarks: Denies fevers, chills, changes in vision/ hearing/ mood, CP, SOB, abdominal pain , nausea, vomiting, constipation, diarrhea, dysuria, numbness/ paresthesias, or muscle/ joint pain. Tired, cough improving. Physical Exam Vital Signs: Vital Signs Temperature 97.8 F 03/13/19 09:19 Pulse Rate 88 03/13/19 11:20 Respiratory Rate 20 03/13/19 09:19 Blood Pressure 113/6 L 03/13/19 09:19 O2 Sat by Pulse Oximetry (%) 95 03/13/19 11:20 Musculoskeletal: Yes: Other (General: calm elderly F lying in bed NAD , AAO x2 (not time) N/M: B shoulder flexion to 100 degrees, 4+/5 BUE/ BLE except for 4/5 B HF; Pinprick Intact BUE/ BLE Extremities: trace BLE pitting edema, no B calf tenderness) Labs: CBC, BMP 03/13/19 09:00 03/13/19 09:00 Assessment/Plan Impression: 1) Deficits Mobility/ ADls 2) Deconditioning 3) Gait abnormality 4) PNA 5) hypoxemic hypercapnic respiratory failure 6) Elevated tropinins due to demand ischemia with hx CHF, HTN, HLD 7) ANI vs CKD with hydronephrosis 8) Agitation with hx dementia 9) Obesity 10) Active smoker 11) Up to date flu shot/ pneumovax Recommendations: 1) PT for stretching strengthening ROM and functional mobility 2) Falls, safety precautions 3) Cardiopulmonary precautions 4) Smoking cessation information at discharge 5) DVT ppx: on Eliquis 6) Skin protection: float heels, frequent turning 7) Denies constipation on current bowel regimen 8) Monitor BMP given renal function 9) Nutrition consult for obesity 10) Continue plan per primary team 11) Discharge planning: depending on her progress, she may need short course inpatient rehabilitation once medically stable Thank you for this referral.
--- NOTE | 2019-03-13 15:16 | HOL ---
Hook-up date: 2019-03-12 10:39:00 Duration: 23:40:00 Test Indications: PAF Medications: 03784 QRS complexes 265 Ventricular ectopics which represent <1 % of total QRS comp. 5788 Supraventricular ectopics which represent 6 % of total QRS comp. * Paced QRS complexs which represent % of total QRS comp. * % of Time Classified as Noise VENTRICULAR ECTOPY 263 Isolated 6 Bigeminal Cycles 1 Couplets 0 Runs 0 Beats in Runs * Beats LONGEST at * BPM at :: -- * Beats FASTEST at * BPM at :: -- SUPRAVENTRICULAR ECTOPY 516 Isolated 31 Couplets 218 Runs 5210 Beats in Runs 199 Beats LONGEST at 126 BPM at 04:53:58 2019-03-13 4 Beats FASTEST at 136 BPM at 14:11:19 2019-03-12 HEART RATES 45 MIN at 07:19:33 2019-03-13 60 AVG 80 MAX at 10:13:06 2019-03-13 LONGEST RR 1.560 secs at 02:17:31 2019-03-13 SCANNED BY AYSMIN SARMIENTO ON 03/13/19 Normal sinus rhythm 263 isolated vpc's frequent apcs - 7% all qrs complexes 218 runs 199 beats longest at 120 bpm 4 beats fastest at 136 bpm Confirmed by FAMILIA LEDBETTER MD ([id number]) on 03/13/2019 3:15:34 PM Referred By: WILFREDO MENDOZA DR Overread By: FAMILIA LEDBETTER MD
--- NOTE | 2019-03-13 15:30 | PN ---
Progress Note (short form) - Note Progress Note: Renal follow up for CKD Pt seen and examined at the bedside feels better has no acute complaints no sob, cp, abd pain making urine Vital Signs Temperature 97.8 F 03/13/19 09:19 Pulse Rate 88 03/13/19 11:20 Respiratory Rate 20 03/13/19 09:19 Blood Pressure 113/6 L 03/13/19 09:19 O2 Sat by Pulse Oximetry (%) 95 03/13/19 11:20 Intake & Output 03/10/19 03/11/19 03/12/19 03/13/19 23:59 23:59 23:59 23:59 Intake Total 865 1345 Output Total 100 100 Balance 765 1245 Weight 72.575 kg NAD neck supple, no JVD RRR, no M/R CTA, no rales or wheeze soft NT/ND, Obese No LE edema CBC, BMP 03/13/19 09:00 03/13/19 09:00 Current Medications Amlodipine Besylate (Norvasc -) 5 mg PO DAILY [facility] Last Admin: 03/13/19 10:11 Dose: 5 mg Apixaban (Eliquis -) 2.5 mg PO BID [facility] Last Admin: 03/13/19 10:11 Dose: 2.5 mg Atorvastatin Calcium (Lipitor -) 40 mg PO HS [facility] Last Admin: 03/12/19 22:38 Dose: Not Given Ceftriaxone Sodium 2 gm/ (Dextrose) 100 mls @ 200 mls/hr IVPB DAILY [facility] Last Admin: 03/13/19 10:08 Dose: 200 mls/hr Doxycycline Hyclate 100 mg/ (Dextrose) 100 mls @ 50 mls/hr IVPB BID [facility] Last Admin: 03/13/19 10:10 Dose: 50 mls/hr Methylprednisolone Sodium Succinate (Solu-Medrol -) 40 mg IVPUSH BID [facility] Last Admin: 03/13/19 10:11 Dose: 40 mg Metoprolol Tartrate (Lopressor -) 25 mg PO BID [facility] Last Admin: 03/13/19 10:11 Dose: 25 mg Nystatin (Mycostatin Cream -) 1 applic TP BID [facility] Valsartan (Diovan -) 160 mg PO DAILY [facility] Last Admin: 03/13/19 10:11 Dose: 160 mg 88 year old woman with hx of hypertension, hyperlipidemia, CHF, dementia, smoker who presented with weakness and cough and noted to have Cr of 1.9. #CKD (baseline Cr 1.64) #Hydronephrosis #SOB #COPD exacerbation #Hypertension #HLD Renal function stable Baseline Cr from PMD office is 1.64 from 02-28-2019 Renal US showed left hydronephrosis which was also noted on prior imaging of Abd. Given that kidney also shows significant cortical atrophy this is likely to be long standing. can discontinue IVF high BUN due to steroids trend renal function and electrolytes continue steroids and Abx as per pulmonary BIPAP support BP at goal, continue amlodipine, metoprolol and valsartan for now Avoid nephrotoxins and IV contrast Thank you Irving King DO
--- NOTE | 2019-03-13 16:04 | PN ---
Progress Note, Physician History of Present Illness: This is an 88 year old female with a PMH of HTN, HLD, and dCHF. Echocardiogram 60 - 65% with diastolic dysfunction. She is a long time and current cigarette. smoker. She presents now with progressive weakness and a cough. EKG is NSR without acute changes. CXR has basilar changes. WBC count 28 Troponin 0.13 - 0.09 BNP 6161 - Current Medication List Current Medications: Active Medications Amlodipine Besylate (Norvasc -) 5 mg PO DAILY [facility] Last Admin: 03/13/19 10:11 Dose: 5 mg Apixaban (Eliquis -) 2.5 mg PO BID [facility] Last Admin: 03/13/19 10:11 Dose: 2.5 mg Atorvastatin Calcium (Lipitor -) 40 mg PO HS [facility] Last Admin: 03/12/19 22:38 Dose: Not Given Ceftriaxone Sodium 2 gm/ (Dextrose) 100 mls @ 200 mls/hr IVPB DAILY [facility] Last Admin: 03/13/19 10:08 Dose: 200 mls/hr Doxycycline Hyclate 100 mg/ (Dextrose) 100 mls @ 50 mls/hr IVPB BID [facility] Last Admin: 03/13/19 10:10 Dose: 50 mls/hr Methylprednisolone Sodium Succinate (Solu-Medrol -) 40 mg IVPUSH BID [facility] Last Admin: 03/13/19 10:11 Dose: 40 mg Metoprolol Tartrate (Lopressor -) 25 mg PO BID [facility] Last Admin: 03/13/19 10:11 Dose: 25 mg Nystatin (Mycostatin Cream -) 1 applic TP BID [facility] Valsartan (Diovan -) 160 mg PO DAILY [facility] Last Admin: 03/13/19 10:11 Dose: 160 mg - Objective Vital Signs: Vital Signs Temperature 98.1 F 03/13/19 14:00 Pulse Rate 57 L 03/13/19 14:00 Respiratory Rate 20 03/13/19 09:19 Blood Pressure 135/62 03/13/19 14:00 O2 Sat by Pulse Oximetry (%) 95 03/13/19 11:20 Constitutional: Yes: No Distress Eyes: Yes: Occular Prosthesis Neck: Yes: WNL Cardiovascular: Yes: Regular Rate and Rhythm (NL S1S2, No MRHG) Respiratory: Yes: CTA Bilaterally Gastrointestinal: Yes: Soft Extremities: Yes: WNL Edema: No Neurological: Yes: Alert, Oriented Labs: CBC, BMP 03/13/19 09:00 03/13/19 09:00 INR, PTT INR 1.16 (0.83-1.09) H 03/10/19 21:35 Assessment/Plan 88 year old female with a PMH of HTN, HLD, and dCHF. Echocardiogram 60 - 65% with diastolic dysfunction. She is a long time and current cigarette. smoker. She presents now with progressive weakness and a cough. EKG is NSR without acute changes. CXR has basilar changes. WBC count 28 Troponin 0.13 - 0.09 BNP 6161 Positive Troponin This represents demand ischemia (a type 2 SD) and not an acute copronary syndrome This may be secondary to an infection, agree with Ceftriaxone for now Continue metoprolol tartrate 25 mg PO BID Follow troponin trends HTN/HLD Continue valsartan/amlodipine Continue atorvastatin Remains in NSR Arrhythmia Paroxysmal supraventricular tachycardia Appears to be most consistent with atrial tachycardia Does not requires AC for this Would increase metoprolol tartrate to 37.5 mg PO BID Try to catch a PSVT episode on a 12 - leads EKG
[2019-03-13] MEDS: ATORVASTATIN CA 40 MG TABLET (FP) PO SCH (22:53)
[2019-03-13] MEDS: NYSTATIN 100,000 UNIT/GM TOPICAL CREAM 15 GM TUBE TP SCH (22:53)
[2019-03-14 07:50] LABS: BASO % 0.1 % (0-2.0); HEMATOCRIT 37.3 % (32.4-45.2); HEMOGLOBIN 12.5 GM/dL (10.7-15.3); LYMPH % 1.6 % (8-40); MCH 29.6 pg (25.7-33.7); MCHC 33.6 g/dl (32.0-36.0); MEAN CELL VOLUME 88.1 fl (80-96); MEAN PLT VOLUME 8.4 fl (7.5-11.1); NEUT % 95.3 % (42.8-82.8); PLATELET COUNT 410 K/MM3 (134-434); RBC 4.23 M/mm3 (3.60-5.2); RDW 15.6 % (11.6-15.6); WHITE BLOOD COUNT 22.6 K/mm3 (4.0-10.0)
[2019-03-14 07:55] LABS: ALBUMIN 1.9 g/dl (3.4-5.0); ALK PHOS 71 U/L (45-117); ANION GAP 5 MMOL/L (8-16); BILIRUBIN,TOTAL 0.4 mg/dL (0.2-1); BLOOD UREA NITROGEN 67 mg/dL (7-18); CALCIUM 9.6 mg/dL (8.5-10.1); CHLORIDE 101 mmol/L (98-107); CO2 31 mmol/L (21-32); CREATININE 1.3 mg/dL (0.55-1.3); GLUCOSE,RANDOM 170 mg/dL (74-106); POTASSIUM 3.7 mmol/L (3.5-5.1); SGOT/AST 46 U/L (15-37); SGPT/ALT 59 U/L (13-61); SODIUM 137 mmol/L (136-145); TOT PROT 6.2 g/dl (6.4-8.2)
[2019-03-14] MEDS ORDERED: DEXTROSE 5%-WATER 100 ML IVPB ONE (10:27)
[2019-03-14] MEDS ORDERED: PT OWN MED DRAWER 7, Y5N ONE (10:27)
[2019-03-14] MEDS: VALSARTAN 160 MG TABLET (UD) PO SCH (10:48)
[2019-03-14] MEDS: APIXABAN 2.5 MG TABLET PO SCH ×2 (10:48→21:20)
[2019-03-14] MEDS: CEFTRIAXONE 2 GM in DEXTROSE 5%-WATER 100 ML IVPB SCH (10:49)
[2019-03-14] MEDS: METOPROLOL TARTRATE 25 MG TABLET (FP) PO SCH ×2 (10:49→21:20)
[2019-03-14] MEDS: NYSTATIN 100,000 UNIT/GM TOPICAL CREAM 15 GM TUBE TP SCH ×2 (10:49→21:22)
[2019-03-14] MEDS: methylPREDNISolone NA SUCC 40 MG/1 ML VIAL IVPUSH SCH ×2 (10:49→21:20)
[2019-03-14] MEDS: amLODIPine BESYLATE 5 MG TABLET (FP) PO SCH (10:49)
[2019-03-14 11:15] LABS: ANISOCYTOSIS 1+; OVALOCYTE 1+; PLATELET ESTIMATE NORMAL
[2019-03-14] MEDS: DOXYCYCLINE INJECTION 100 MG in DEXTROSE 5%-WATER - 100 ML IVPB SCH ×3 (12:27→22:59)
--- NOTE | 2019-03-14 12:27 | PN ---
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 Overtly tolerating diet. Feed only when fully alert
--- NOTE | 2019-03-14 13:28 | PN ---
Progress Note, Physician History of Present Illness: PULMONARY ALERT,COMFORTABLE,-SOB,-CP - Current Medication List Current Medications: Active Medications Amlodipine Besylate (Norvasc -) 5 mg PO DAILY [facility] Apixaban (Eliquis -) 2.5 mg PO BID [facility] Atorvastatin Calcium (Lipitor -) 40 mg PO HS [facility] Ceftriaxone Sodium 2 gm/ (Dextrose) 100 mls @ 200 mls/hr IVPB DAILY [facility] Doxycycline Hyclate 100 mg/ (Dextrose) 100 mls @ 50 mls/hr IVPB BID [facility] Last Admin: 03/14/19 12:27 Dose: 50 mls/hr Methylprednisolone Sodium Succinate (Solu-Medrol -) 40 mg IVPUSH BID [facility] Metoprolol Tartrate (Lopressor -) 25 mg PO BID [facility] Nystatin (Mycostatin Cream -) 1 applic TP BID [facility] Valsartan (Diovan -) 160 mg PO DAILY [facility] - Objective Vital Signs: Vital Signs Temperature 97.6 F 03/14/19 06:00 Pulse Rate 64 03/14/19 09:47 Respiratory Rate 22 H 03/14/19 09:47 Blood Pressure 108/60 03/14/19 09:47 O2 Sat by Pulse Oximetry (%) 96 03/14/19 09:00 Constitutional: Yes: Well Nourished, Calm Eyes: Yes: WNL HENT: Yes: WNL Neck: Yes: WNL Cardiovascular: Yes: Regular Rate and Rhythm, S1, S2 Respiratory: Yes: Diminished, Rales (FEW BIBASILAR CRACKLES) Gastrointestinal: Yes: Normal Bowel Sounds, Soft Extremities: Yes: WNL Edema: No Labs: CBC, BMP 03/14/19 06:35 03/14/19 06:35 INR, PTT INR 1.16 (0.83-1.09) H 03/10/19 21:35 Problem List - Problems (1) Acute respiratory failure with hypoxia and hypercapnia Code(s): J96.01 - ACUTE RESPIRATORY FAILURE WITH HYPOXIA; J96.02 - ACUTE RESPIRATORY FAILURE WITH HYPERCAPNIA (2) ANI (acute kidney injury) Code(s): N17.9 - ACUTE KIDNEY FAILURE, UNSPECIFIED (3) Elevated troponin Code(s): R74.8 - ABNORMAL LEVELS OF OTHER SERUM ENZYMES (4) Hyponatremia Code(s): E87.1 - HYPO-OSMOLALITY AND HYPONATREMIA (5) Pneumonia Code(s): J18.9 - PNEUMONIA, UNSPECIFIED ORGANISM Assessment/Plan IMP ACUTE HYPOXEMIC/HYPERCAPNEIC RESPIRATORY FAILURE IMPROVED BILATERAL PNEUMONIA CLINICALLY IMPROVING PULMONARY NODULES ? INFECTIOUS,?MALIGNANT + TROPONIN DIASTOLIC HF PAF ANI TOBACCO ABUSE PLAN ABX PER ID INHALED BRONCHODILATORS STEROID TAPER O2 NIPPV NEEDED INHALED BRONCHODILATORS F/U CHEST X-RAYS IVF MONITOR LYTES,RENAL FUNCTION F/U CHEST CT 4-6 WKS TO CONFIRM RESOLUTION OF INFILTRATES AND NODULES, IN NO CHANGE PET SCAN DR MOROCHO Problem List - Problems (1) Acute respiratory failure with hypoxia and hypercapnia Code(s): J96.01 - ACUTE RESPIRATORY FAILURE WITH HYPOXIA; J96.02 - ACUTE RESPIRATORY FAILURE WITH HYPERCAPNIA (2) ANI (acute kidney injury) Code(s): N17.9 - ACUTE KIDNEY FAILURE, UNSPECIFIED (3) Elevated troponin Code(s): R74.8 - ABNORMAL LEVELS OF OTHER SERUM ENZYMES (4) Hyponatremia Code(s): E87.1 - HYPO-OSMOLALITY AND HYPONATREMIA (5) Pneumonia Code(s): J18.9 - PNEUMONIA, UNSPECIFIED ORGANISM
--- NOTE | 2019-03-14 14:07 | PN ---
Progress Note, Physician Chief Complaint: patient seen and examined on nasal canula on iv abx - Current Medication List Current Medications: Active Medications Apixaban (Eliquis -) 2.5 mg PO BID [facility] Atorvastatin Calcium (Lipitor -) 40 mg PO HS [facility] Ceftriaxone Sodium 2 gm/ (Dextrose) 100 mls @ 200 mls/hr IVPB DAILY [facility] Doxycycline Hyclate 100 mg/ (Dextrose) 100 mls @ 50 mls/hr IVPB BID [facility] Last Admin: 03/14/19 12:27 Dose: 50 mls/hr Methylprednisolone Sodium Succinate (Solu-Medrol -) 40 mg IVPUSH BID [facility] Nystatin (Mycostatin Cream -) 1 applic TP BID [facility] Valsartan (Diovan -) 160 mg PO DAILY [facility] - Objective Vital Signs: Vital Signs Temperature 97.6 F 03/14/19 06:00 Pulse Rate 64 03/14/19 09:47 Respiratory Rate 22 H 03/14/19 09:47 Blood Pressure 108/60 03/14/19 09:47 O2 Sat by Pulse Oximetry (%) 96 03/14/19 09:00 Constitutional: Yes: Calm Cardiovascular: Yes: Regular Rate and Rhythm, S1, S2 Respiratory: Yes: On Nasal O2, Other (crackles) Gastrointestinal: Yes: Normal Bowel Sounds, Soft Edema: No Neurological: Yes: Alert, Oriented (to name) Labs: CBC, BMP 03/14/19 06:35 03/14/19 06:35 INR, PTT INR 1.16 (0.83-1.09) H 03/10/19 21:35 Problem List - Problems (1) Hypokalemia Assessment/Plan: improved Code(s): E87.6 - HYPOKALEMIA (2) Pneumonia Assessment/Plan: iv abx rocephin and doxycycline leukocytosis also on steroid taper oxygen via nasal canula ID eval noted swallow eval- MBS done regular diet and thin liquids Code(s): J18.9 - PNEUMONIA, UNSPECIFIED ORGANISM (3) Elevated troponin Assessment/Plan: echo - now troponin normal, LV and RV size and function is normal cardiology eval maybe secondary to demand ischemia aspirin metoprolol statin Code(s): R74.8 - ABNORMAL LEVELS OF OTHER SERUM ENZYMES (4) ANI (acute kidney injury) Assessment/Plan: renal sono,- chronic left side hydronephrosis- urology UA corbin cath renal eval noted gentle hydration- bun/cr improving Code(s): N17.9 - ACUTE KIDNEY FAILURE, UNSPECIFIED (5) Agitation Assessment/Plan: secondary to infectious process now much improved psych consult noted Code(s): R45.1 - RESTLESSNESS AND AGITATION Assessment/Plan PT saw patient 2 person jaisonst walked 10 feet per PT noted oob to chair as tolerated
--- NOTE | 2019-03-14 14:46 | PN ---
Progress Note, Physician Chief Complaint: The patient seen by her bed. Comfortable. Still in telemetry. Denies any chest pain, no shortness of breath. History of Present Illness: This is a 88 year old woman with hx of hypertension, hyperlipidemia, CHF, dementia, smoker who presented with weakness and cough and noted to have Cr of 1.9. Denies any hx of CKD, kidney stones. NO recent contrast exposure. Denies any flank pain, dysuria, hematuria. Denies any NSAID use. Reports appetite has been poor for the past week. No N/V/D. No fever or chills. - Current Medication List Current Medications: Active Medications Amlodipine Besylate (Norvasc -) 5 mg PO DAILY [facility] Apixaban (Eliquis -) 2.5 mg PO BID [facility] Atorvastatin Calcium (Lipitor -) 40 mg PO HS [facility] Ceftriaxone Sodium 2 gm/ (Dextrose) 100 mls @ 200 mls/hr IVPB DAILY [facility] Doxycycline Hyclate 100 mg/ (Dextrose) 100 mls @ 50 mls/hr IVPB BID [facility] Last Admin: 03/14/19 12:27 Dose: 50 mls/hr Methylprednisolone Sodium Succinate (Solu-Medrol -) 40 mg IVPUSH BID [facility] Metoprolol Tartrate (Lopressor -) 25 mg PO BID [facility] Nystatin (Mycostatin Cream -) 1 applic TP BID [facility] Valsartan (Diovan -) 160 mg PO DAILY [facility] - Objective Vital Signs: Vital Signs Temperature 97.6 F 03/14/19 06:00 Pulse Rate 64 03/14/19 09:47 Respiratory Rate 22 H 03/14/19 09:47 Blood Pressure 108/60 03/14/19 09:47 O2 Sat by Pulse Oximetry (%) 96 03/14/19 09:00 Constitutional: Yes: No Distress, Anxious Eyes: Yes: Conjunctiva Clear HENT: Yes: Normocephalic Neck: Yes: Trachea Midline Cardiovascular: Yes: Regular Rate and Rhythm, S1, S2 Respiratory: Yes: CTA Bilaterally, Diminished Gastrointestinal: Yes: Normal Bowel Sounds, Abdomen, Obese Genitourinary: No: Bladder Distention, CVA Tenderness - Left, CVA Tenderness - Right Musculoskeletal: No: Back Pain, Joint Stiffness Edema: Yes Edema: LLE: Trace, RLE: Trace Labs: CBC, BMP 03/14/19 06:35 03/14/19 06:35 INR, PTT INR 1.16 (0.83-1.09) H 03/10/19 21:35 Assessment/Plan This is a 88 year old woman with hx of hypertension, hyperlipidemia, CHF, dementia, smoker who presented with weakness and cough and noted to have Cr of 1.9. The renal functions are improving, and at 1.3 mg now. Reviewed medications and labs. No changes made. Will monitor the renal functions with you. Swati Turner MD
--- NOTE | 2019-03-14 16:37 | PN ---
Progress Note, Physician Chief Complaint: Resting comfortably History of Present Illness: This is an 88 year old female with a PMH of HTN, HLD, and dCHF. Echocardiogram 60 - 65% with diastolic dysfunction. She is a long time and current cigarette. smoker. She presents now with progressive weakness and a cough. EKG is NSR without acute changes. CXR has basilar changes. WBC count 28 Troponin 0.13 - 0.09 BNP 6161 SVT runs noted on telemetry which have the appearance of atrial tachycardia. - Current Medication List Current Medications: Active Medications Amlodipine Besylate (Norvasc -) 5 mg PO DAILY [facility] Apixaban (Eliquis -) 2.5 mg PO BID [facility] Atorvastatin Calcium (Lipitor -) 40 mg PO HS [facility] Ceftriaxone Sodium 2 gm/ (Dextrose) 100 mls @ 200 mls/hr IVPB DAILY [facility] Doxycycline Hyclate 100 mg/ (Dextrose) 100 mls @ 50 mls/hr IVPB BID [facility] Last Admin: 03/14/19 12:27 Dose: 50 mls/hr Methylprednisolone Sodium Succinate (Solu-Medrol -) 40 mg IVPUSH BID [facility] Metoprolol Tartrate (Lopressor -) 25 mg PO BID [facility] Nystatin (Mycostatin Cream -) 1 applic TP BID [facility] Valsartan (Diovan -) 160 mg PO DAILY [facility] - Objective Vital Signs: Vital Signs Temperature 97.6 F 03/14/19 06:00 Pulse Rate 64 03/14/19 09:47 Respiratory Rate 22 H 03/14/19 09:47 Blood Pressure 108/60 03/14/19 09:47 O2 Sat by Pulse Oximetry (%) 96 03/14/19 09:00 Constitutional: Yes: No Distress Eyes: Yes: WNL HENT: Yes: WNL Neck: Yes: WNL Cardiovascular: Yes: Regular Rate and Rhythm (NL S1 S2, No MRHG) Respiratory: Yes: CTA Bilaterally Gastrointestinal: Yes: Soft Extremities: Yes: WNL Edema: No Neurological: Yes: Alert Labs: CBC, BMP 03/14/19 06:35 03/14/19 06:35 INR, PTT INR 1.16 (0.83-1.09) H 03/10/19 21:35 Assessment/Plan 88 year old female with a PMH of HTN, HLD, and dCHF. Echocardiogram 60 - 65% with diastolic dysfunction. She is a long time and current cigarette. smoker. She presents now with progressive weakness and a cough. EKG is NSR without acute changes. CXR has basilar changes. WBC count 28 Troponin 0.13 - 0.09 BNP 6161 Positive Troponin This represents demand ischemia (a type 2 [place]) and not an acute copronary syndrome This may be secondary to an infection, agree with Ceftriaxone for now Continue metoprolol tartrate 25 mg PO BID HTN/HLD Continue valsartan/amlodipine Continue atorvastatin Remains in NSR Arrhythmia The SVT runs noted on telemetry have the appearance of atrial tachycardia. I did not see actual atrial fibrillation. Therefore, I see no need for anticoagulation and recommend stopping apixaban.
--- NOTE | 2019-03-14 16:47 | PN ---
Progress Note (short form) - Note Progress Note: now off bipap out of bed in chair Vital Signs Period Temp Pulse Resp BP Sys/Angel Pulse Ox Last 24 Hr 97.5 F-99.1 F 54-64 18-22 108-162/58-74 94-96 cor-rrr lungs decreased bs at bases abd soft,nt ext no edema CBC, BMP 03/14/19 06:35 03/14/19 06:35 Microbiology 03/10/19 21:35 Blood - Peripheral Venous Blood Culture - Preliminary NO GROWTH OBTAINED AFTER 72 HOURS, INCUBATION TO CONTINUE FOR 2 DAYS. 03/10/19 21:35 Blood - Peripheral Venous Blood Culture - Preliminary NO GROWTH OBTAINED AFTER 72 HOURS, INCUBATION TO CONTINUE FOR 2 DAYS. 03/12/19 14:05 Urine For Antigen Detection Legionella Antigen - Final 03/12/19 14:05 Urine For Antigen Detection Streptococcus pneumoniae Antigen (M - Final 03/11/19 09:41 Urine - Urine - Catheterized Urine Culture - Final NO GROWTH OBTAINED Current Medications Amlodipine Besylate (Norvasc -) 5 mg PO DAILY [facility] Apixaban (Eliquis -) 2.5 mg PO BID [facility] Atorvastatin Calcium (Lipitor -) 40 mg PO HS [facility] Ceftriaxone Sodium 2 gm/ (Dextrose) 100 mls @ 200 mls/hr IVPB DAILY [facility] Doxycycline Hyclate 100 mg/ (Dextrose) 100 mls @ 50 mls/hr IVPB BID [facility] Last Admin: 03/14/19 12:27 Dose: 50 mls/hr Methylprednisolone Sodium Succinate (Solu-Medrol -) 40 mg IVPUSH BID [facility] Metoprolol Tartrate (Lopressor -) 25 mg PO BID [facility] Nystatin (Mycostatin Cream -) 1 applic TP BID [facility] Valsartan (Diovan -) 160 mg PO DAILY [facility] a/p CAP- rocephin/doxycycline ?renal insufficiency- check with PMD baseline renal function check renal sonogram-chronic hydronephrosis on right leukocytosis- on steroids clinically improving Problem List - Problems (1) Pneumonia Code(s): J18.9 - PNEUMONIA, UNSPECIFIED ORGANISM (2) Hyponatremia Code(s): E87.1 - HYPO-OSMOLALITY AND HYPONATREMIA (3) Hypokalemia Code(s): E87.6 - HYPOKALEMIA (4) Renal insufficiency Code(s): N28.9 - DISORDER OF KIDNEY AND URETER, UNSPECIFIED
[2019-03-14] MEDS: ATORVASTATIN CA 40 MG TABLET (FP) PO SCH (21:20)
[2019-03-14] MEDS ORDERED: METOPROLOL TARTRATE 25 MG TABLET (FP) PO SCH (22:00)
--- NOTE | 2019-03-14 22:47 | CON.GU ---
Consult Consult Specialty:: urology Referred by:: Jamin Reason for Consultation:: left hydronephrosis with renal insufficiency - History of Present Illness Chief Complaint: left hydronephrosis with renal insufficiency - History Source History Provided By: Medical Record, Caregiver Limitations to Obtaining History: Clinical Condition - Alcohol/Substance Use Hx Alcohol Use: Yes (RARE) - Smoking History Smoking history: Current every day smoker Have you smoked in the past 12 months: No Aproximately how many cigarettes per day: 10 - Social History Usual Living Arrangement: Alone (alone in apartment without steps) ADL: Independent (without AD) Home Medications - Allergies Allergies/Adverse Reactions: Allergies Allergy/AdvReac Type Severity Reaction Status Date / Time No Known Allergies Allergy Verified 03/10/19 21:52 - Home Medications Home Medications: Ambulatory Orders Amlodipine Besylate 10 mg PO DAILY 03/11/19 Aspirin 81 mg PO DAILY 03/11/19 Atorvastatin Ca [Lipitor] 40 mg PO HS 03/11/19 Cholecalciferol (Vitamin D3) [Vitamin D] 2,000 unit PO DAILY 03/11/19 Cyanocobalamin (Vitamin B-12) [Vitamin B-12] 1,000 mcg PO DAILY 03/11/19 Donepezil HCl 10 mg PO DAILY 03/11/19 Escitalopram Oxalate [Lexapro -] 10 mg PO DAILY 03/11/19 Folic Acid 1 mg PO DAILY 03/11/19 Furosemide 40 mg PO DAILY 03/11/19 Memantine HCl [Memantine HCl ER] 14 mg PO DAILY 03/11/19 Metoprolol Succinate [Kapspargo Sprinkle] 25 mg PO DAILY 03/11/19 Potassium Chloride 20 meq PO DAILY 03/11/19 Physical Exam- Vital Signs: Vital Signs Temperature 97.8 F 03/14/19 20:14 Pulse Rate 73 03/14/19 21:26 Respiratory Rate 21 H 03/14/19 20:14 Blood Pressure 121/66 03/14/19 21:26 O2 Sat by Pulse Oximetry (%) 96 03/14/19 09:00 Constitutional: Yes: Anxious Eyes: Yes: WNL, Conjunctiva Clear, EOM Intact HENT: Yes: WNL Neck: Yes: WNL Cardiovascular: Yes: WNL Respiratory: Yes: Tachypnea Gastrointestinal: Yes: WNL, Normal Bowel Sounds, Soft Renal/: Yes: WNL Kidneys: Yes: WNL Pelvis: Yes: WNL, Bladder Non Palpable Labs: CBC, BMP 03/14/19 06:35 03/14/19 06:35 Imaging - Results Cat Scan: Report Reviewed Ultrasound: Report Reviewed (left hydronephrosis unchanged since 2011) Assessment/Plan imp pneumonis left hydronephrosis due to chronic upj obstruction renal insufficiency plan treat pneumonia observe left hydro as this is longstanding and unchanged renal function normalizing with hydration
[2019-03-15 08:50] LABS: ALBUMIN 1.8 g/dl (3.4-5.0); ALK PHOS 56 U/L (45-117); ANION GAP 7 MMOL/L (8-16); BILIRUBIN,TOTAL 0.4 mg/dL (0.2-1); BLOOD UREA NITROGEN 89 mg/dL (7-18); CALCIUM 9.7 mg/dL (8.5-10.1); CHLORIDE 101 mmol/L (98-107); CO2 30 mmol/L (21-32); CREATININE 1.2 mg/dL (0.55-1.3); GLUCOSE,RANDOM 196 mg/dL (74-106); POTASSIUM 3.9 mmol/L (3.5-5.1); SGOT/AST 34 U/L (15-37); SGPT/ALT 52 U/L (13-61); SODIUM 138 mmol/L (136-145); TOT PROT 5.7 g/dl (6.4-8.2)
[2019-03-15 08:52] LABS: BASO % 0.3 % (0-2.0); HEMATOCRIT 33.4 % (32.4-45.2); HEMOGLOBIN 11.1 GM/dL (10.7-15.3); LYMPH % 2.6 % (8-40); MCH 29.6 pg (25.7-33.7); MCHC 33.1 g/dl (32.0-36.0); MEAN CELL VOLUME 89.4 fl (80-96); MEAN PLT VOLUME 8.7 fl (7.5-11.1); MONO % 2.8 % (3.8-10.2); NEUT % 94.3 % (42.8-82.8); PLATELET COUNT 407 K/MM3 (134-434); RBC 3.73 M/mm3 (3.60-5.2); RDW 15.6 % (11.6-15.6); WHITE BLOOD COUNT 25.7 K/mm3 (4.0-10.0)
[2019-03-15] MEDS ORDERED: amLODIPine BESYLATE 5 MG TABLET (FP) PO SCH (10:00)
[2019-03-15] MEDS ORDERED: DEXTROSE 5%-WATER 100 ML IVPB ONE (10:43)
[2019-03-15] MEDS: CEFTRIAXONE 2 GM in DEXTROSE 5%-WATER 100 ML IVPB SCH (10:45)
[2019-03-15] MEDS: amLODIPine BESYLATE 5 MG TABLET (FP) PO SCH (10:46)
[2019-03-15] MEDS: VALSARTAN 160 MG TABLET (UD) PO SCH (10:46)
[2019-03-15] MEDS: METOPROLOL TARTRATE 25 MG TABLET (FP) PO SCH ×3 (10:46→21:38)
[2019-03-15] MEDS: APIXABAN 2.5 MG TABLET PO SCH ×2 (10:46→21:34)
[2019-03-15] MEDS: methylPREDNISolone NA SUCC 40 MG/1 ML VIAL IVPUSH SCH ×2 (10:46→21:34)
[2019-03-15] MEDS: NYSTATIN 100,000 UNIT/GM TOPICAL CREAM 15 GM TUBE TP SCH ×2 (10:48→21:34)
[2019-03-15 11:15] LABS: ANISOCYTOSIS 1+; MACROCYTOSIS 0; OVALOCYTE 1+; PLATELET ESTIMATE NORMAL
--- NOTE | 2019-03-15 12:58 | PN ---
Progress Note (short form) - Note Progress Note: PULMONARY VSS/AFEBRILE Constitutional: Yes: Well Nourished, Calm Eyes: Yes: WNL HENT: Yes: WNL Neck: Yes: WNL Cardiovascular: Yes: Regular Rate and Rhythm, S1, S2 Respiratory: Yes: Diminished, Rales (FEW BIBASILAR CRACKLES) Gastrointestinal: Yes: Normal Bowel Sounds, Soft Extremities: Yes: WNL Edema: No Labs: reviewed IMP ACUTE HYPOXEMIC/HYPERCAPNEIC RESPIRATORY FAILURE IMPROVED BILATERAL PNEUMONIA CLINICALLY IMPROVING PULMONARY NODULES ? INFECTIOUS,?MALIGNANT + TROPONIN DIASTOLIC HF PAF ANI TOBACCO ABUSE PLAN ABX PER ID INHALED BRONCHODILATORS STEROID TAPER O2 NIPPV NEEDED INHALED BRONCHODILATORS F/U CHEST X-RAYS IVF MONITOR LYTES,RENAL FUNCTION F/U CHEST CT 4-6 WKS TO CONFIRM RESOLUTION OF INFILTRATES AND NODULES, IN NO CHANGE PET SCAN Lopez BRUNER MD
[2019-03-15] MEDS: DOXYCYCLINE INJECTION 100 MG in DEXTROSE 5%-WATER - 100 ML IVPB SCH ×2 (13:27→21:34)
--- NOTE | 2019-03-15 15:16 | PN ---
Progress Note (short form) - Note Progress Note: moist cough doing well oob in chair no longer on bipap Vital Signs Period Temp Pulse Resp BP Sys/Angel Pulse Ox Last 24 Hr 97.6 F-98.0 F 58-73 18-22 108-138/52-76 94-95 cor-rrr lungs scattered rhonchi abd soft,nt ext no edema CBC, BMP 03/15/19 07:15 03/15/19 07:15 Microbiology 03/10/19 21:35 Blood - Peripheral Venous Blood Culture - Preliminary NO GROWTH OBTAINED AFTER 96 HOURS, INCUBATION TO CONTINUE FOR 1 DAYS. 03/10/19 21:35 Blood - Peripheral Venous Blood Culture - Preliminary NO GROWTH OBTAINED AFTER 96 HOURS, INCUBATION TO CONTINUE FOR 1 DAYS. 03/12/19 14:05 Urine For Antigen Detection Legionella Antigen - Final 03/12/19 14:05 Urine For Antigen Detection Streptococcus pneumoniae Antigen (M - Final 03/11/19 09:41 Urine - Urine - Catheterized Urine Culture - Final NO GROWTH OBTAINED Current Medications Amlodipine Besylate (Norvasc -) 5 mg PO DAILY [facility] Last Admin: 03/15/19 10:46 Dose: 5 mg Apixaban (Eliquis -) 2.5 mg PO BID [facility] Last Admin: 03/15/19 10:46 Dose: 2.5 mg Atorvastatin Calcium (Lipitor -) 40 mg PO HS [facility] Last Admin: 03/14/19 21:20 Dose: 40 mg Ceftriaxone Sodium 2 gm/ (Dextrose) 100 mls @ 200 mls/hr IVPB DAILY [facility] Last Admin: 03/15/19 10:45 Dose: 200 mls/hr Doxycycline Hyclate 100 mg/ (Dextrose) 100 mls @ 50 mls/hr IVPB BID [facility] Last Admin: 03/15/19 13:27 Dose: 50 mls/hr Methylprednisolone Sodium Succinate (Solu-Medrol -) 40 mg IVPUSH BID [facility] Last Admin: 03/15/19 10:46 Dose: 40 mg Metoprolol Tartrate (Lopressor -) 25 mg PO BID [facility] Last Admin: 03/15/19 10:46 Dose: 25 mg Nystatin (Mycostatin Cream -) 1 applic TP BID [facility] Last Admin: 03/15/19 10:48 Dose: 1 applic Valsartan (Diovan -) 160 mg PO DAILY [facility] Last Admin: 03/15/19 10:46 Dose: 160 mg a/p CAP- rocephin/doxycycline day #6 of 7 d/c antibiotics on Monday clinically improved leukocytosis- on steroids Problem List - Problems (1) Pneumonia Code(s): J18.9 - PNEUMONIA, UNSPECIFIED ORGANISM (2) Hyponatremia Code(s): E87.1 - HYPO-OSMOLALITY AND HYPONATREMIA (3) Hypokalemia Code(s): E87.6 - HYPOKALEMIA (4) Renal insufficiency Code(s): N28.9 - DISORDER OF KIDNEY AND URETER, UNSPECIFIED
--- NOTE | 2019-03-15 17:12 | PN ---
Progress Note, Physician Chief Complaint: PNA Renal Insufficiency History of Present Illness: Previous notes and events reviewed awake and alert NAD leukocytosis noted afebrile sts her breathing is improving - Current Medication List Current Medications: Active Medications Amlodipine Besylate (Norvasc -) 5 mg PO DAILY [facility] Last Admin: 03/15/19 10:46 Dose: 5 mg Apixaban (Eliquis -) 2.5 mg PO BID [facility] Last Admin: 03/15/19 10:46 Dose: 2.5 mg Atorvastatin Calcium (Lipitor -) 40 mg PO HS [facility] Last Admin: 03/14/19 21:20 Dose: 40 mg Ceftriaxone Sodium 2 gm/ (Dextrose) 100 mls @ 200 mls/hr IVPB DAILY [facility] Last Admin: 03/15/19 10:45 Dose: 200 mls/hr Doxycycline Hyclate 100 mg/ (Dextrose) 100 mls @ 50 mls/hr IVPB BID [facility] Last Admin: 03/15/19 13:27 Dose: 50 mls/hr Methylprednisolone Sodium Succinate (Solu-Medrol -) 40 mg IVPUSH BID [facility] Last Admin: 03/15/19 10:46 Dose: 40 mg Metoprolol Tartrate (Lopressor -) 25 mg PO BID [facility] Last Admin: 03/15/19 10:46 Dose: 25 mg Nystatin (Mycostatin Cream -) 1 applic TP BID [facility] Last Admin: 03/15/19 10:48 Dose: 1 applic Valsartan (Diovan -) 160 mg PO DAILY [facility] Last Admin: 03/15/19 10:46 Dose: 160 mg - Objective Vital Signs: Vital Signs Temperature 98.0 F 03/15/19 14:00 Pulse Rate 58 L 03/15/19 14:00 Respiratory Rate 22 H 03/15/19 14:00 Blood Pressure 122/52 L 03/15/19 14:00 O2 Sat by Pulse Oximetry (%) 94 L 03/15/19 09:00 Constitutional: Yes: No Distress, Calm Eyes: Yes: Conjunctiva Clear HENT: Yes: Atraumatic Cardiovascular: Yes: Regular Rate and Rhythm Respiratory: Yes: Regular, Diminished, On Nasal O2 Gastrointestinal: Yes: Normal Bowel Sounds, Soft Musculoskeletal: Yes: Muscle Weakness Extremities: Yes: WNL Edema: Yes Edema: LLE: 1+, RLE: 1+ Neurological: Yes: Alert, Oriented Psychiatric: Yes: Alert, Oriented Labs: CBC, BMP 03/15/19 07:15 03/15/19 07:15 INR, PTT INR 1.16 (0.83-1.09) H 03/10/19 21:35 Microbiology 03/10/19 21:35 Blood - Peripheral Venous Blood Culture - Preliminary NO GROWTH OBTAINED AFTER 96 HOURS, INCUBATION TO CONTINUE FOR 1 DAYS. 03/10/19 21:35 Blood - Peripheral Venous Blood Culture - Preliminary NO GROWTH OBTAINED AFTER 96 HOURS, INCUBATION TO CONTINUE FOR 1 DAYS. 03/12/19 14:05 Urine For Antigen Detection Legionella Antigen - Final 03/12/19 14:05 Urine For Antigen Detection Streptococcus pneumoniae Antigen (M - Final 03/11/19 09:41 Urine - Urine - Catheterized Urine Culture - Final NO GROWTH OBTAINED Problem List - Problems (1) ANI (acute kidney injury) Assessment/Plan: -BUN/Cr 89/1.2 -renal on board -monitor renal function daily -Urology on board after hydronephrosis noted on Renal US Code(s): N17.9 - ACUTE KIDNEY FAILURE, UNSPECIFIED (2) Elevated troponin Assessment/Plan: -troponin 0.03 -cardiology on board Code(s): R74.8 - ABNORMAL LEVELS OF OTHER SERUM ENZYMES (3) Hyponatremia Assessment/Plan: -resolved -Na 138 -monitor electrolyte and replete as needed Code(s): E87.1 - HYPO-OSMOLALITY AND HYPONATREMIA (4) Paroxysmal A-fib Assessment/Plan: -continue Eliquis and Metoprolol Code(s): I48.0 - PAROXYSMAL ATRIAL FIBRILLATION (5) Pneumonia Assessment/Plan: -Pulm and ID on board -WBC 25.7 -leukocytosis 2/2 to steroid -afebrile -continue IV Ceftriaxone and Doxycycline -IV Medrol Code(s): J18.9 - PNEUMONIA, UNSPECIFIED ORGANISM Assessment/Plan see problem list dvt ppx
[2019-03-15] MEDS ORDERED: PT OWN MED DRAWER 7, Y5N ONE (21:09)
[2019-03-15] MEDS: ATORVASTATIN CA 40 MG TABLET (FP) PO SCH (21:34)
--- NOTE | 2019-03-16 00:15 | PDOC ---
Documentation entered by Nidhi Maradiaga SCRIBE, acting as scribe for Dominique Slade MD. Dominique Slade MD: This documentation has been prepared by the Ashwini ford Daisy, SCRIBE, under my direction and personally reviewed by me in its entirety. I confirm that the documentation accurately reflects all work, treatment, procedures, and medical decision making performed by me. Attending Attestation - Resident Resident Name: Loco Ruiz - ED Attending Attestation I have performed the following: I have examined & evaluated the patient, The case was reviewed & discussed with the resident, I agree w/resident's findings & plan - HPI HPI: 03/10/19 21:42 The patient is a 88 YOF of HTN, HLD, CHF who presents brought in by her daughter from home with cough and shortness of breath today. Patient is not on home O2. She admits to smoking cigarettes, last time she smoked was 3 days ago. Daughter at bedside states she received a pneumonia shot a week ago. Daughters have also noticed she is weaker and eating less than her baseline today prompting them to bring to the ER. Daughters also state she typically spends her day on a chair and sleeps on a chair. Last bowel movement was 1 hour ago and described as diarrhea, which is normal for her. She reports taking her meds daily. Denies recent hospitalizations. No known history of COPD or asthma. Denies any cp, N/V/C, bowel or urinary complaints. Allergies: NKDA Social Hx: Smoker. No reported drug or alcohol use. PCP: Dr. Neville - Physicial Exam PE: 03/10/19 21:49 ADULT PHYSICAL EXAM Constitutional: Awake, alert, oriented. No acute distress. Cardiovascular: Regular rate. Regular rhythm. S1, S2 regular. Distal pulses are 2+ and symmetric. Pulmonary/Chest: (+) Decreased breath sounds but clear throughout all lung coleman. Abdominal: Soft and non-distended. There is no tenderness. No rebound, guarding or rigidity. No organomegaly. No palpable masses. Good bowel sounds. Back: No CVA tenderness. Musculoskeletal: (+) minimal pitting edema but tender bilaterally. No cyanosis. No clubbing. Full range of motion in all extremities. Nocalf tenderness. Radial/pedal pulses are intact and 2+ bilaterally Skin: Skin is warm and dry. No petechiae. No purpura. Neurological: Alert and oriented to person, place, and time. Cranial nerves II -XII are grossly intact. Normal speech. Strength is grossly symmetric. No sensory deficits. Psychiatric: Good eye contact. Normal interaction, affect and behavior. - Medical Decision Making 03/10/19 23:04 Pt is warm to the touch. She has decreased breath sounds and she has low pulsox. She has elevated WBC of 28; she has a pneumonia on CXR. She is from the community and she will be treated with zithromax and ceftriaxone. Pt will be admitted for pneumonia and generalized weakness.
[2019-03-16 08:13] LABS: HEMATOCRIT 26.4 % (32.4-45.2); HEMOGLOBIN 8.7 GM/dL (10.7-15.3); MCH 29.7 pg (25.7-33.7); MCHC 32.9 g/dl (32.0-36.0); MEAN CELL VOLUME 90.2 fl (80-96); PLATELET COUNT 381 K/MM3 (134-434); RBC 2.93 M/mm3 (3.60-5.2); RDW 15.5 % (11.6-15.6)
[2019-03-16 08:34] LABS: WHITE BLOOD COUNT 33.3 K/mm3 (4.0-10.0)
[2019-03-16] MEDS ORDERED: ONDANSETRON 4 MG/2 ML VIAL IVPB PRN (08:56)
[2019-03-16 09:07] LABS: ALBUMIN 1.9 g/dl (3.4-5.0); ALK PHOS 48 U/L (45-117); ANION GAP 15 MMOL/L (8-16); BILIRUBIN,TOTAL 0.2 mg/dL (0.2-1); CALCIUM 9.1 mg/dL (8.5-10.1); CHLORIDE 99 mmol/L (98-107); CO2 23 mmol/L (21-32); CREATININE 1.6 mg/dL (0.55-1.3); GLUCOSE,RANDOM 256 mg/dL (74-106); POTASSIUM 4.1 mmol/L (3.5-5.1); SGOT/AST 29 U/L (15-37); SGPT/ALT 46 U/L (13-61); SODIUM 137 mmol/L (136-145); TOT PROT 5.3 g/dl (6.4-8.2)
[2019-03-16] MEDS ORDERED: PT OWN MED DRAWER 7, Y5N ONE (09:11)
[2019-03-16] MEDS ORDERED: DEXTROSE 5%-WATER 100 ML IVPB ONE (09:12)
[2019-03-16] MEDS: PANTOPRAZOLE SODIUM 40 MG VIAL IVPUSH SCH (09:14)
[2019-03-16] MEDS: amLODIPine BESYLATE 5 MG TABLET (FP) PO SCH ×2 (09:17→09:28)
[2019-03-16] MEDS: METOPROLOL TARTRATE 25 MG TABLET (FP) PO SCH ×3 (09:17→22:29)
[2019-03-16] MEDS: VALSARTAN 160 MG TABLET (UD) PO SCH ×2 (09:17→09:28)
[2019-03-16] MEDS: methylPREDNISolone NA SUCC 40 MG/1 ML VIAL IVPUSH SCH (09:18)
[2019-03-16] MEDS: CEFTRIAXONE 2 GM in DEXTROSE 5%-WATER 100 ML IVPB SCH (09:18)
[2019-03-16] MEDS: NYSTATIN 100,000 UNIT/GM TOPICAL CREAM 15 GM TUBE TP SCH ×3 (09:18→22:50)
--- NOTE | 2019-03-16 09:28 | PN ---
Progress Note, Physician Chief Complaint: PNA Renal Insufficiency History of Present Illness: Previous notes and events reviewed awake and alert NAD leukocytosis noted afebrile c/o nausea but no vomiting noted drop in Hg 11.1 to 8.7 - Current Medication List Current Medications: Active Medications Amlodipine Besylate (Norvasc -) 5 mg PO DAILY [facility] Last Admin: 03/16/19 09:17 Dose: 5 mg Apixaban (Eliquis -) 2.5 mg PO BID [facility] Last Admin: 03/15/19 21:34 Dose: 2.5 mg Atorvastatin Calcium (Lipitor -) 40 mg PO HS [facility] Last Admin: 03/15/19 21:34 Dose: 40 mg Ceftriaxone Sodium 2 gm/ (Dextrose) 100 mls @ 200 mls/hr IVPB DAILY [facility] Last Admin: 03/16/19 09:18 Dose: 200 mls/hr Doxycycline Hyclate 100 mg/ (Dextrose) 100 mls @ 50 mls/hr IVPB BID [facility] Last Admin: 03/15/19 21:34 Dose: 50 mls/hr Methylprednisolone Sodium Succinate (Solu-Medrol -) 40 mg IVPUSH BID [facility] Last Admin: 03/16/19 09:18 Dose: 40 mg Metoprolol Tartrate (Lopressor -) 25 mg PO BID [facility] Last Admin: 03/16/19 09:17 Dose: 25 mg Nystatin (Mycostatin Cream -) 1 applic TP BID [facility] Last Admin: 03/16/19 09:18 Dose: 1 applic Ondansetron HCl (Zofran Injection) 4 mg IVPB Q8H PRN PRN Reason: NAUSEA Last Admin: 03/16/19 09:05 Dose: 4 mg Pantoprazole Sodium (Protonix Iv) 40 mg IVPUSH DAILY [facility] Last Admin: 03/16/19 09:14 Dose: 40 mg Valsartan (Diovan -) 160 mg PO DAILY [facility] Last Admin: 03/16/19 09:17 Dose: 160 mg - Objective Vital Signs: Vital Signs Temperature 98.8 F 03/16/19 08:19 Pulse Rate 68 03/16/19 08:19 Respiratory Rate 16 03/16/19 08:19 Blood Pressure 113/60 03/16/19 08:19 O2 Sat by Pulse Oximetry (%) 94 L 03/15/19 22:00 Constitutional: Yes: No Distress Eyes: Yes: Conjunctiva Clear HENT: Yes: Atraumatic Cardiovascular: Yes: Regular Rate and Rhythm Respiratory: Yes: Regular, CTA Bilaterally Gastrointestinal: Yes: Normal Bowel Sounds, Soft Musculoskeletal: Yes: Muscle Weakness Extremities: Yes: WNL Edema: No Neurological: Yes: Alert, Oriented Psychiatric: Yes: Alert, Oriented Labs: CBC, BMP 03/16/19 07:00 03/16/19 07:00 INR, PTT INR 1.16 (0.83-1.09) H 03/10/19 21:35 Microbiology 03/10/19 21:35 Blood - Peripheral Venous Blood Culture - Final NO GROWTH AFTER 5 DAYS INCUBATION 03/10/19 21:35 Blood - Peripheral Venous Blood Culture - Final NO GROWTH AFTER 5 DAYS INCUBATION 03/12/19 14:05 Urine For Antigen Detection Legionella Antigen - Final 03/12/19 14:05 Urine For Antigen Detection Streptococcus pneumoniae Antigen (M - Final 03/11/19 09:41 Urine - Urine - Catheterized Urine Culture - Final NO GROWTH OBTAINED Problem List - Problems (1) ANI (acute kidney injury) Assessment/Plan: -BUN/Cr 115/1.6 -renal on board -monitor renal function daily -Urology on board after hydronephrosis noted on Renal US Code(s): N17.9 - ACUTE KIDNEY FAILURE, UNSPECIFIED (2) Elevated troponin Assessment/Plan: -troponin 0.03 -cardiology on board Code(s): R74.8 - ABNORMAL LEVELS OF OTHER SERUM ENZYMES (3) Hyponatremia Assessment/Plan: -resolved -Na 137 -monitor electrolyte and replete as needed Code(s): E87.1 - HYPO-OSMOLALITY AND HYPONATREMIA (4) Paroxysmal A-fib Assessment/Plan: -continue Metoprolol -Eliquis on hold Code(s): I48.0 - PAROXYSMAL ATRIAL FIBRILLATION (5) Pneumonia Assessment/Plan: -Pulm and ID on board -WBC 33.3 -leukocytosis 2/2 to steroid -afebrile -continue IV Ceftriaxone and Doxycycline -IV Medrol Code(s): J18.9 - PNEUMONIA, UNSPECIFIED ORGANISM (6) Anemia Assessment/Plan: -drop in Hg from 11.1 to 8.7 -started on Pantoprazole 40mg daily IVPB -GI consult placed -NPO except for medication -Eliquis on hold until UGIB ruled out -transfer to telemetry Code(s): D64.9 - ANEMIA, UNSPECIFIED
[2019-03-16 09:37] LABS: BLOOD UREA NITROGEN 115 mg/dL (7-18)
--- NOTE | 2019-03-16 10:35 | PN ---
Progress Note, Physician Chief Complaint: The patient seen and examined in her bed. Possible Acute GI bleed in view of sudden drop in Hgb. The patient seems comfortable. No overt bleeding identified. Maintains good urine output. History of Present Illness: This is a 88 year old woman with hx of hypertension, hyperlipidemia, CHF, dementia, who presented with weakness and cough and noted to have Cr of 1.9. Renal functions were slowly improving, until now when the BUN and Creatinine are trending up. - Current Medication List Current Medications: Active Medications Amlodipine Besylate (Norvasc -) 5 mg PO DAILY [facility] Last Admin: 03/16/19 09:28 Dose: Not Given Apixaban (Eliquis -) 2.5 mg PO BID [facility] Last Admin: 03/15/19 21:34 Dose: 2.5 mg Atorvastatin Calcium (Lipitor -) 40 mg PO HS [facility] Last Admin: 03/15/19 21:34 Dose: 40 mg Ceftriaxone Sodium 2 gm/ (Dextrose) 100 mls @ 200 mls/hr IVPB DAILY [facility] Last Admin: 03/16/19 09:18 Dose: 200 mls/hr Doxycycline Hyclate 100 mg/ (Dextrose) 100 mls @ 50 mls/hr IVPB BID [facility] Last Admin: 03/15/19 21:34 Dose: 50 mls/hr Methylprednisolone Sodium Succinate (Solu-Medrol -) 40 mg IVPUSH BID [facility] Last Admin: 03/16/19 09:18 Dose: 40 mg Metoprolol Tartrate (Lopressor -) 25 mg PO BID [facility] Last Admin: 03/16/19 09:28 Dose: Not Given Nystatin (Mycostatin Cream -) 1 applic TP BID [facility] Last Admin: 03/16/19 09:18 Dose: 1 applic Ondansetron HCl (Zofran Injection) 4 mg IVPB Q8H PRN PRN Reason: NAUSEA Last Admin: 03/16/19 09:05 Dose: 4 mg Pantoprazole Sodium (Protonix Iv) 40 mg IVPUSH DAILY [facility] Last Admin: 03/16/19 09:14 Dose: 40 mg Valsartan (Diovan -) 160 mg PO DAILY [facility] Last Admin: 03/16/19 09:28 Dose: Not Given - Objective Vital Signs: Vital Signs Temperature 98.8 F 03/16/19 08:19 Pulse Rate 68 04/27/19 08:19 Respiratory Rate 16 03/16/19 08:19 Blood Pressure 113/60 03/16/19 08:19 O2 Sat by Pulse Oximetry (%) 94 L 03/15/19 22:00 Constitutional: Yes: Anxious, Pallor HENT: Yes: Normocephalic Neck: Yes: Trachea Midline Cardiovascular: Yes: Tachycardia, S1, S2 Respiratory: Yes: Diminished, Poor Air Entry Gastrointestinal: Yes: Normal Bowel Sounds, Abdomen, Obese Genitourinary: No: Bladder Distention, CVA Tenderness - Left, CVA Tenderness - Right Labs: CBC, BMP 03/16/19 07:00 03/16/19 07:00 INR, PTT INR 1.16 (0.83-1.09) H 03/10/19 21:35 Assessment/Plan This is a 88 year old woman with hx of hypertension, hyperlipidemia, CHF, dementia, admitted with weakness and cough and noted to have Cr of 1.9. The BUN and Cr have risen since yesterday. The patient is being worked up for Acute GI bleed. The BUN elevation may be explained on the basis of blood in the gut ad the effects of the steroids. The rise in Serum Cr most likely Hemodynamic due to altered renal perfusion. Will stop Amlodipin....relatively hypotensive. Concur with the GI w/u in order. Trend Hgb/ Hct, Renal and electrolyte profile. Transfer to monitored bed. Thank you. Swati Turner MD
[2019-03-16] MEDS: DOXYCYCLINE INJECTION 100 MG in DEXTROSE 5%-WATER - 100 ML IVPB SCH (10:47)
--- NOTE | 2019-03-16 11:48 | PN ---
Progress Note (short form) - Note Progress Note: Appears stable but noted to have an acute drop in H&H. Hemodynamics are stable. No CP or SOB. Intake & Output 03/13/19 03/14/19 03/15/19 03/16/19 23:59 23:59 23:59 23:59 Intake Total 2034 880 1000 250 Balance 2034 880 1000 250 Weight 160 lb 192 lb 2 oz 195 lb 3 oz Last Vital Signs Temp Pulse Resp BP Pulse Ox 98.8 F 68 16 113/60 95 03/16/19 08:19 03/16/19 08:19 03/16/19 08:19 03/16/19 08:19 03/16/19 09:00 Active Medications Apixaban (Eliquis -) 2.5 mg PO BID [facility] Last Admin: 03/15/19 21:34 Dose: 2.5 mg Atorvastatin Calcium (Lipitor -) 40 mg PO HS [facility] Last Admin: 03/15/19 21:34 Dose: 40 mg Ceftriaxone Sodium 2 gm/ (Dextrose) 100 mls @ 200 mls/hr IVPB DAILY [facility] Last Admin: 03/16/19 09:18 Dose: 200 mls/hr Doxycycline Hyclate 100 mg/ (Dextrose) 100 mls @ 50 mls/hr IVPB BID [facility] Last Admin: 03/16/19 10:47 Dose: 50 mls/hr Methylprednisolone Sodium Succinate (Solu-Medrol -) 40 mg IVPUSH BID [facility] Last Admin: 03/16/19 09:18 Dose: 40 mg Metoprolol Tartrate (Lopressor -) 25 mg PO BID [facility] Last Admin: 03/16/19 09:28 Dose: Not Given Nystatin (Mycostatin Cream -) 1 applic TP BID [facility] Last Admin: 03/16/19 09:18 Dose: 1 applic Ondansetron HCl (Zofran Injection) 4 mg IVPB Q8H PRN PRN Reason: NAUSEA Last Admin: 03/16/19 09:05 Dose: 4 mg Pantoprazole Sodium (Protonix Iv) 40 mg IVPUSH DAILY [facility] Last Admin: 03/16/19 09:14 Dose: 40 mg Valsartan (Diovan -) 160 mg PO DAILY [facility] Last Admin: 03/16/19 09:28 Dose: Not Given Constitutional: Yes: No Distress Eyes: Yes: Conjunctiva Clear HENT: Yes: Atraumatic Cardiovascular: Yes: Regular Rate and Rhythm Respiratory: Yes: few scattered rhonchi Gastrointestinal: Yes: Normal Bowel Sounds, Soft Musculoskeletal: Yes: Muscle Weakness Extremities: Yes: WNL Edema: No Neurological: Yes: Alert, Oriented Psychiatric: Yes: Alert, Oriented Labs: Laboratory Results - last 24 hr 03/16/19 03/16/19 07:00 07:00 WBC 33.3 H* RBC 2.93 L Hgb 8.7 L Hct 26.4 L D MCV 90.2 MCH 29.7 MCHC 32.9 RDW 15.5 Plt Count 381 MPV 9.0 Sodium 137 Potassium 4.1 Chloride 99 Carbon Dioxide 23 Anion Gap 15 BUN 115 H* Creatinine 1.6 H Creat Clearance w eGFR 30.49 Random Glucose 256 H Calcium 9.1 Total Bilirubin 0.2 AST 29 ALT 46 Alkaline Phosphatase 48 Total Protein 5.3 L Albumin 1.9 L Problem List - Problems (1) ANI (acute kidney injury) Assessment/Plan: Code(s): N17.9 - ACUTE KIDNEY FAILURE, UNSPECIFIED (2) Elevated troponin Assessment/Plan: Code(s): R74.8 - ABNORMAL LEVELS OF OTHER SERUM ENZYMES (3) Hyponatremia Assessment/Plan: Code(s): E87.1 - HYPO-OSMOLALITY AND HYPONATREMIA (4) Paroxysmal A-fib Assessment/Plan: Code(s): I48.0 - PAROXYSMAL ATRIAL FIBRILLATION (5) Pneumonia Assessment/Plan: Code(s): J18.9 - PNEUMONIA, UNSPECIFIED ORGANISM (6) Anemia Assessment/Plan: Code(s): D64.9 - ANEMIA, UNSPECIFIED PLAN: OK to stop IV steroids which may exacerbate bleeding ABX per ID O2 as needed Follow CBC GI follow up Eliquis to be held Noted patient will be transferred to Telemetry for closer monitoring Dr Soliz
--- NOTE | 2019-03-16 15:03 | PN ---
Progress Note (short form) - Note Progress Note: no respiratory distress transferred to telemetry suspected GI bleed Vital Signs Period Temp Pulse Resp BP Sys/Angel Pulse Ox Last 24 Hr 98.0 F-98.8 F 55-88 16-20 104-113/50-63 94-95 cor-rrr lungs clear abd soft,nt ext no edema +soft tissue growth in left groin with small ulcer CBC, BMP 03/16/19 07:00 03/16/19 07:00 Microbiology 03/10/19 21:35 Blood - Peripheral Venous Blood Culture - Final NO GROWTH AFTER 5 DAYS INCUBATION 03/10/19 21:35 Blood - Peripheral Venous Blood Culture - Final NO GROWTH AFTER 5 DAYS INCUBATION 03/12/19 14:05 Urine For Antigen Detection Legionella Antigen - Final 03/12/19 14:05 Urine For Antigen Detection Streptococcus pneumoniae Antigen (M - Final 03/11/19 09:41 Urine - Urine - Catheterized Urine Culture - Final NO GROWTH OBTAINED a/p probable GI bleed leukocytosis-suspect secondary to steroids and stress will get blood cultures CAP- rocephin/doxycycline day #7 of 7 clinically improved cxray improved d/w hospitalist Problem List - Problems (1) Pneumonia Code(s): J18.9 - PNEUMONIA, UNSPECIFIED ORGANISM (2) Hyponatremia Code(s): E87.1 - HYPO-OSMOLALITY AND HYPONATREMIA (3) Hypokalemia Code(s): E87.6 - HYPOKALEMIA (4) Renal insufficiency Code(s): N28.9 - DISORDER OF KIDNEY AND URETER, UNSPECIFIED
--- NOTE | 2019-03-16 16:31 | PN ---
Progress Note (short form) - Note Progress Note: GI consult dictated npo / ivf ppi INFUSION transfuse prbc h/h q12 hold a/c see full consult
--- NOTE | 2019-03-16 16:55 | CONS ---
DATE OF CONSULTATION: DATE OF DICTATION: 03/16/2019 The patient is an 88-year-old female with a past medical history of hypertension, hyperlipidemia, CHF, dementia, smoker, who was admitted to the hospital with cough and weakness as well as shortness of breath. She is being treated for pneumonia with antibiotics and steroids. Earlier in the day she was noted to have some dark stools overnight and a drop in her hemoglobin. Patient is a poor historian but denies any abdominal pain, nausea, vomiting, hematemesis, hematochezia, syncope, dizziness, or current shortness of breath. PAST MEDICAL/SURGICAL HISTORY: As listed in the HPI. ALLERGIES: No known drug allergies. SOCIAL HISTORY: Smokes. Does not drink or use drugs. FAMILY HISTORY: Noncontributory. HOME MEDICATIONS: Tribenzor and Motrin therapy. PHYSICAL EXAMINATION: Vital Signs: Temperature 98, pulse 57, blood pressure 128/54, respiratory rate 16 on nasal cannula, and she is saturating 95%. General: No acute distress. HEENT: Anicteric sclerae. Cardiovascular: S1, S2. Regular rate and rhythm. Lungs: Bilaterally clear to auscultation with an occasional wheeze. Abdomen: Soft and nontender. Extremities: No edema. LABORATORY: White blood cell count 33, hemoglobin 8.7, hematocrit 26, MCV 90, platelet count 381. Hemoglobin baseline appears to be between 11 and 12. INR 1.1. Sodium 137, potassium 4.1, BUN/creatinine 115/1.6. Glucose 256. Total bilirubin 0.2. AST 29, ALT 46, alkaline phosphatase 48. Cultures are pending. She has not had any abdominal imaging. Chest x-ray was performed on the and revealed clearing of the increased lung markings from previous x-ray. IMPRESSION: Acute anemia and dark stool suspicious for gastrointestinal bleed secondary to peptic ulcer disease, angioectasias, or nonsteroidal antiinflammatory drug gastropathy in the setting of Eliquis therapy. RECOMMENDATIONS: Hold Eliquis, start a Protonix infusion. If possible, down titrate her steroid therapy. N.p.o., IV fluids today. Transfuse to a hemoglobin of 10. If her hemoglobin and hematocrit were to remain stable, she can be started on a clear liquid diet tomorrow. Would prefer to hold off on any invasive procedures at this time considering she received Eliquis. She will need a diagnostic upper endoscopy on Monday or Monday. If she were to develop signs of an overt GI bleed, an urgent endoscopy will be performed over the weekend. DO DANNIELLE KATHLEEN/[id number]
[2019-03-16] MEDS: MEMANTINE 14 MG PO SCH (18:57)
[2019-03-16] MEDS: ATORVASTATIN CA 40 MG TABLET (FP) PO SCH (22:29)
--- NOTE | 2019-03-17 07:15 | PN.GI ---
GI Progress Note Subjective: some dark stool in the diaper - small amount , no bright red blood pt denies abd pain / n/v/ hemetemesis / dizziness - Objective Vital Signs: Vital Signs Temperature 97.9 F 03/17/19 06:44 Pulse Rate 57 L 03/17/19 06:44 Respiratory Rate 20 03/17/19 06:44 Blood Pressure 109/40 L 03/17/19 06:44 O2 Sat by Pulse Oximetry (%) 97 03/16/19 20:33 Constitutional: Well Nourished, No Distress, Calm Eyes: Yes: WNL HENT: Yes: WNL Neck: Yes: WNL Cardiovascular: Yes: WNL Respiratory: Yes: WNL, Regular Gastrointestinal Inspection: Yes: WNL ...Auscultate: Yes: Normoactive Bowel Sounds, No Bowel Sounds Musculoskeletal: Yes: WNL Extremities: Yes: WNL Edema: No Labs: CBC, BMP 03/16/19 07:00 03/16/19 07:00 INR, PTT INR 1.16 (0.83-1.09) H 03/10/19 21:35 Problem List - Problems (1) Acute GI bleeding Assessment/Plan: transfuse PRBC to HG of 10 serial cbc q12 PPI infusion hold a/c NPO ; diagnostic egd Monday MICU care Code(s): K92.2 - GASTROINTESTINAL HEMORRHAGE, UNSPECIFIED (2) Anemia Code(s): D64.9 - ANEMIA, UNSPECIFIED
[2019-03-17] MEDS ORDERED: DEXTROSE 5%-WATER 100 ML IVPB ONE (07:59)
[2019-03-17 08:41] LABS: HEMATOCRIT 22.2 % (32.4-45.2); HEMOGLOBIN 7.4 GM/dL (10.7-15.3); MCH 29.1 pg (25.7-33.7); MCHC 33.1 g/dl (32.0-36.0); MEAN CELL VOLUME 87.7 fl (80-96); MEAN PLT VOLUME 8.8 fl (7.5-11.1); PLATELET COUNT 332 K/MM3 (134-434); RBC 2.53 M/mm3 (3.60-5.2); RDW 15.4 % (11.6-15.6)
[2019-03-17 08:53] LABS: WHITE BLOOD COUNT 36.5 K/mm3 (4.0-10.0)
[2019-03-17 09:10] LABS: ALBUMIN 1.9 g/dl (3.4-5.0); ALK PHOS 43 U/L (45-117); ANION GAP 8 MMOL/L (8-16); BILIRUBIN,TOTAL 0.3 mg/dL (0.2-1); CALCIUM 9.4 mg/dL (8.5-10.1); CHLORIDE 101 mmol/L (98-107); CO2 27 mmol/L (21-32); CREATININE 1.8 mg/dL (0.55-1.3); GLUCOSE,RANDOM 132 mg/dL (74-106); POTASSIUM 4.2 mmol/L (3.5-5.1); SGOT/AST 25 U/L (15-37); SGPT/ALT 39 U/L (13-61); SODIUM 136 mmol/L (136-145); TOT PROT 4.9 g/dl (6.4-8.2)
[2019-03-17 09:17] LABS: BLOOD UREA NITROGEN 131 mg/dL (7-18)
[2019-03-17] MEDS: VALSARTAN 160 MG TABLET (UD) PO SCH (09:18)
[2019-03-17] MEDS: NYSTATIN 100,000 UNIT/GM TOPICAL CREAM 15 GM TUBE TP SCH ×2 (09:19→23:45)
[2019-03-17] MEDS: METOPROLOL TARTRATE 25 MG TABLET (FP) PO SCH ×2 (09:19→23:54)
[2019-03-17] MEDS: MEMANTINE 14 MG PO SCH (09:20)
[2019-03-17] MEDS: PANTOPRAZOLE SODIUM 40 MG VIAL IVPUSH SCH (09:20)
[2019-03-17] MEDS: CEFTRIAXONE 2 GM in DEXTROSE 5%-WATER 100 ML IVPB SCH (09:21)
--- NOTE | 2019-03-17 10:07 | PN ---
Progress Note, Physician Chief Complaint: PNA Renal Insufficiency History of Present Illness: Previous notes and events reviewed awake and alert NAD leukocytosis noted afebrile Hg 7.4 noted with episode of melena this morning - Current Medication List Current Medications: Active Medications Apixaban (Eliquis -) 2.[address] [facility] Last Admin: 03/15/19 21:34 Dose: 2.5 mg Atorvastatin Calcium (Lipitor -) [address] [facility] Last Admin: 03/16/19 22:29 Dose: Not Given Donepezil HCl (Aricept -) [address] [facility] Ceftriaxone Sodium 2 gm/ (Dextrose) 100 mls @ 200 mls/hr IVPB DAILY [facility] Last Admin: 03/17/19 09:21 Dose: 200 mls/hr Pantoprazole Sodium 80 mg/ (Sodium Chloride) 100 mls @ 10 mls/hr IVPB Q10H [facility] Methylprednisolone Sodium Succinate (Solu-Medrol -) [address] [facility] Last Admin: 03/16/19 09:18 Dose: 40 mg Metoprolol Tartrate (Lopressor -) [address] [facility] Last Admin: 03/17/19 09:19 Dose: Not Given Nystatin (Mycostatin Cream -) [address] [facility] Last Admin: 03/17/19 09:19 Dose: 1 applic Ondansetron HCl (Zofran Injection) 4 mg IVPB Q8H PRN PRN Reason: NAUSEA Last Admin: 03/16/19 09:05 Dose: 4 mg Memantine Hcl Er (14mg Cap_Pt Own Med) [address] [facility] Last Admin: 03/17/19 09:20 Dose: 1 each Valsartan (Diovan -) [address] [facility] Last Admin: 03/17/19 09:18 Dose: Not Given - Objective Vital Signs: Vital Signs Temperature 97.9 F 03/17/19 06:44 Pulse Rate 57 L 03/17/19 06:44 Respiratory Rate 20 03/17/19 06:44 Blood Pressure 109/40 L 03/17/19 06:44 O2 Sat by Pulse Oximetry (%) 97 03/16/19 20:33 Constitutional: Yes: No Distress, Calm, Obese Eyes: Yes: Conjunctiva Clear HENT: Yes: Atraumatic Cardiovascular: Yes: Bradycardia Respiratory: Yes: Regular, Diminished, On Nasal O2 Gastrointestinal: Yes: Normal Bowel Sounds, Soft, Abdomen, Obese, Melena ...Rectal Exam: Yes: Mass Genitourinary: Yes: Incontinence Musculoskeletal: Yes: Muscle Weakness Extremities: Yes: WNL Edema: No Neurological: Yes: Alert, Oriented Psychiatric: Yes: Alert, Oriented Labs: CBC, BMP 03/17/19 08:00 03/17/19 08:00 INR, PTT INR 1.16 (0.83-1.09) H 03/10/19 21:35 Microbiology 03/10/19 21:35 Blood - Peripheral Venous Blood Culture - Final NO GROWTH AFTER 5 DAYS INCUBATION 03/10/19 21:35 Blood - Peripheral Venous Blood Culture - Final NO GROWTH AFTER 5 DAYS INCUBATION 03/12/19 14:05 Urine For Antigen Detection Legionella Antigen - Final 03/12/19 14:05 Urine For Antigen Detection Streptococcus pneumoniae Antigen (M - Final 03/11/19 09:41 Urine - Urine - Catheterized Urine Culture - Final NO GROWTH OBTAINED Problem List - Problems (1) ANI (acute kidney injury) Assessment/Plan: -BUN/Cr 131/1.8 -2/2 to GI bleed -renal on board -monitor renal function daily -Urology on board after hydronephrosis noted on Renal US Code(s): N17.9 - ACUTE KIDNEY FAILURE, UNSPECIFIED (2) Elevated troponin Assessment/Plan: -troponin 0.03 -cardiology on board Code(s): R74.8 - ABNORMAL LEVELS OF OTHER SERUM ENZYMES (3) Hyponatremia Assessment/Plan: -resolved -Na 136 -monitor electrolyte and replete as needed Code(s): E87.1 - HYPO-OSMOLALITY AND HYPONATREMIA (4) Paroxysmal A-fib Assessment/Plan: -continue Metoprolol -Eliquis on hold -holter monitor results reviewed Code(s): I48.0 - PAROXYSMAL ATRIAL FIBRILLATION (5) Pneumonia Assessment/Plan: -Pulm and ID on board -WBC 36.5 -leukocytosis -afebrile -continue IV Ceftriaxone and Doxycycline -IV Medrol -repeat CXR results reviewed -repeat BC ordered Code(s): J18.9 - PNEUMONIA, UNSPECIFIED ORGANISM (6) Anemia Assessment/Plan: -Hg 7.4 -patient to receive 2U PRBC transfusion--will get lasix 40mg IVP after second unit to avoid overload -1U FFP -Pantoprazole drip -GI on board -NPO except for medication -Eliquis on hold until UGIB ruled out -tele monitoring -patient will have endoscopy Monday morning -spoke with patient HCP Geovanna Marques and received consent for transfusion via phone with RN as witness Code(s): D64.9 - ANEMIA, UNSPECIFIED Assessment/Plan see problem list dvt ppx
[2019-03-17] MEDS: PANTOPRAZOLE SODIUM 80 MG in SODIUM CHLORIDE 100 ML IVPB SCH ×2 (10:50→23:53)
[2019-03-17] MEDS: DEXTROSE 5%-NORMAL SALINE 1,000 ML IV SCH (11:22)
--- NOTE | 2019-03-17 11:28 | CONSULT ---
Consultation: REQUESTING PROVIDER: CONSULT REQUEST: We have been asked to medically evaluate this patient for GI bleed. HISTORY OF PRESENT ILLNESS: Patient is a 88 y/o female with a history of CHF, HTN, HLD, and dementia who is admitted for PNA. Patient is a poor historian. Per daughter she has been much weaker then usual. Called to evaluate patient with new GI bleed. Per nursing patient had episode of melena this morning. Patient hgb dropped, will receive two units of blood. Kidney function worsening. Diastolic pressure lower. Patient is a life long smoker. A & O x 0. Denies pain, nausea, vomiting blood or bloody stools, but patient does not remember when her last bowel movement was. Per nursing patient was tolerating walking one week ago. REVIEW OF SYSTEMS: Denies fevers chillls, nausea, vomiting, chest pain, shortness of breath, dizziness, or weakness. Patient is a poor historian PHYSICAL EXAMINATION Vital Signs Temperature 97.9 F 03/17/19 06:44 Pulse Rate 57 L 03/17/19 06:44 Respiratory Rate 20 03/17/19 06:44 Blood Pressure 109/40 L 03/17/19 06:44 O2 Sat by Pulse Oximetry (%) 97 03/16/19 20:33 GENERAL: Awake, lethargic HEAD: Normal with no signs of trauma. EYES: Pupils equal, round and reactive to light, extraocular movements intact, sclera anicteric, conjunctiva clear. No lid lag. EARS, NOSE, THROAT: Moist mucous membranes. 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 No wheezes, and no crackles. No accessory muscle use. HEART: Regular rate and rhythm, normal S1 and S2 without murmur, rub or gallop. ABDOMEN: Soft, nontender, not distended, normoactive bowel sounds, no guarding, no rebound, no masses. No hepatomegaly or splenomegaly. MUSCULOSKELETAL: Normal range of motion at all joints. No bony deformities or tenderness. No CVA tenderness. LOWER EXTREMITIES: 2+ pulses, warm, well-perfused. No calf tenderness. No peripheral edema. NEUROLOGICAL: Cranial nerves II-XII intact. Normal speech. Normal gait. PSYCHIATRIC: Cooperative. Good eye contact. Appropriate mood and affect. SKIN: Warm, dry, normal turgor, no rashes or lesions noted. CBCD WBC 36.5 K/mm3 (4.0-10.0) H* 03/17/19 08:00 RBC 2.53 M/mm3 (3.60-5.2) L 03/17/19 08:00 Hgb 7.4 GM/dL (10.7-15.3) L 03/17/19 08:00 Hct 22.2 % (32.4-45.2) L D 03/17/19 08:00 MCV 87.7 fl (80-96) 03/17/19 08:00 MCHC 33.1 g/dl (32.0-36.0) 03/17/19 08:00 RDW 15.4 % (11.6-15.6) 03/17/19 08:00 Plt Count 332 K/MM3 (134-434) 03/17/19 08:00 MPV 8.8 fl (7.5-11.1) 03/17/19 08:00 CMP Sodium 136 mmol/L (136-145) 03/17/19 08:00 Potassium 4.2 mmol/L (3.5-5.1) 03/17/19 08:00 Chloride 101 mmol/L (98-107) 03/17/19 08:00 Carbon Dioxide 27 mmol/L (21-32) 03/17/19 08:00 Anion Gap 8 MMOL/L (8-16) 03/17/19 08:00 BUN 131 mg/dL (7-18) H* 03/17/19 08:00 Creatinine 1.8 mg/dL (0.55-1.3) H 03/17/19 08:00 Creat Clearance w eGFR 26.62 (>60) 03/17/19 08:00 Calcium 9.4 mg/dL (8.5-10.1) 03/17/19 08:00 Total Bilirubin 0.3 mg/dL (0.2-1) 03/17/19 08:00 AST 25 U/L (15-37) 03/17/19 08:00 ALT 39 U/L (13-61) 03/17/19 08:00 Alkaline Phosphatase 43 U/L (45-117) L 03/17/19 08:00 Total Protein 4.9 g/dl (6.4-8.2) L 03/17/19 08:00 Albumin 1.9 g/dl (3.4-5.0) L 03/17/19 08:00 Active Medications Apixaban (Eliquis -) 2.5 mg PO BID [facility] Last Admin: 03/15/19 21:34 Dose: 2.5 mg Atorvastatin Calcium (Lipitor -) 40 mg PO HS [facility] Last Admin: 03/16/19 22:29 Dose: Not Given Donepezil HCl (Aricept -) 10 mg PO HS [facility] Ceftriaxone Sodium 2 gm/ (Dextrose) 100 mls @ 200 mls/hr IVPB DAILY [facility] Last Admin: 03/17/19 09:21 Dose: 200 mls/hr Pantoprazole Sodium 80 mg/ (Sodium Chloride) 100 mls @ 10 mls/hr IVPB Q10H [facility] Dextrose/Sodium Chloride (D5-Ns -) 1,000 mls @ 42 mls/hr IV ASDIR [facility] Stop: 03/18/19 10:30 Methylprednisolone Sodium Succinate (Solu-Medrol -) 40 mg IVPUSH BID [facility] Last Admin: 03/16/19 09:18 Dose: 40 mg Metoprolol Tartrate (Lopressor -) 25 mg PO BID [facility] Last Admin: 03/17/19 09:19 Dose: Not Given Nystatin (Mycostatin Cream -) 1 applic TP BID [facility] Last Admin: 03/17/19 09:19 Dose: 1 applic Ondansetron HCl (Zofran Injection) 4 mg IVPB Q8H PRN PRN Reason: NAUSEA Last Admin: 03/16/19 09:05 Dose: 4 mg Memantine Hcl Er (14mg Cap_Pt Own Med) 0 each PO DAILY [facility] Last Admin: 03/17/19 09:20 Dose: 1 each Valsartan (Diovan -) 160 mg PO DAILY [facility] Last Admin: 03/17/19 09:18 Dose: Not Given ASSESSMENT/PLAN: Patient is a 88 y/o female with a history of CHF, HTN, HLD, and dementia who is admitted for PNA and evaluated for new GI bleed. Neuro - Awake, lethargic - dementia at baseline, appears to be change in baseline - donepizil 10 mg hs Cardio - GI bleed, diastolic blood pressures on the low side, pulses stable - hx afib: hold AC in lieu of bleed, continue metoprolol 25 BID - hx of HTN, hold BP meds with current vitals - hs CHF, Echo: EF 60%, LV and RV normal fxn, type I diastolic dysfunction - LL US: no DVT, left popliteal fossa cyst - continue atorvastatin 40 mg hs Pulm - L lobe PNA, last day of antibiotics today - CXR: congestive changes and infiltrate - steroids held as to not exacerbate bleeding - long hx of smoking, f/u chest CT in 4-6 wks to follow - Chest CT: focal opacity, spiculated nodules GI - acute GI bleed, likely upper - to be transfused 2 units today, 1 unit of FFP - followed by GI, plan for Endoscopy tomorrow - protonix drip - monitor BP q1h Renal/ - left hydronephrosis, per Dr. Conley monitor for now - ANI, 2/2 to GI bleed and steroid use, continue to monitor - avoid nephrotoxic agents ID - PNA, today day 7 of 7 for treatment - WBC increase, likely 2/2 to steroid use - blood cx pending, ucx negative, urine antigens negative - afebrile Heme - Hgb low, f/u CBC after transfusion - AC held, SCD's for ppx FEN - NPO for endoscopy tomorrow - D5 NS @ 42 Dispo: We will continue to follow the patient. Thank you for this consultative opportunity. - f/u CBC after second unit - EGD tomorrow morning Visit type - Emergency Visit Emergency Visit: No - New Patient This patient is new to me today: Yes Date on this admission: 03/17/19 - Critical Care Critical Care patient: Yes Total Critical Care Time (in minutes): 45 Critical Care Statement: The care of this patient involved high complexity decision making to prevent further life threatening deterioration of the patient 's condition and/or to evaluate & treat vital organ system(s) failure or risk of failure.
--- NOTE | 2019-03-17 13:30 | PN ---
Progress Note, Physician Chief Complaint: The patient has been transferred to the Telemetry. examined in her bed. Has rectal bleeding...for GI procedure tomorrow. Anticoagulants and steroids on hold. Maintains good urine output. History of Present Illness: This is a 88 year old woman with hx of hypertension, hyperlipidemia, CHF, dementia, who presented with weakness and cough. Renal functions were slowly improving, but has slightly worsened with the acute hemodynamic changes. - Current Medication List Current Medications: Active Medications Apixaban (Eliquis -) 2.5 mg PO BID [facility] Last Admin: 03/15/19 21:34 Dose: 2.5 mg Atorvastatin Calcium (Lipitor -) 40 mg PO HS [facility] Last Admin: 03/16/19 22:29 Dose: Not Given Chlorhexidine Gluconate (Hibiclens For Decolonization -) 1 applic TP [facility] Donepezil HCl (Aricept -) 10 mg PO [facility] Ceftriaxone Sodium 2 gm/ (Dextrose) 100 mls @ 200 mls/hr IVPB DAILY [facility] Last Admin: 03/17/19 09:21 Dose: 200 mls/hr Pantoprazole Sodium 80 mg/ (Sodium Chloride) 100 mls @ 10 mls/hr IVPB Q10H [facility] Last Admin: 03/17/19 10:50 Dose: 10 mls/hr Dextrose/Sodium Chloride (D5-Ns -) 1,000 mls @ 42 mls/hr IV ASDIR [facility] Stop: 03/18/19 10:30 Last Admin: 03/17/19 11:22 Dose: 42 mls/hr Methylprednisolone Sodium Succinate (Solu-Medrol -) 40 mg IVPUSH BID [facility] Last Admin: 03/16/19 09:18 Dose: 40 mg Metoprolol Tartrate (Lopressor -) 25 mg PO BID [facility] Last Admin: 03/17/19 09:19 Dose: Not Given Mupirocin (Bactroban Ointment (For Decolonization) -) 1 applic NS BID [facility] Stop: 03/22/19 21:59 Nystatin (Mycostatin Cream -) 1 applic TP BID [facility] Last Admin: 03/17/19 09:19 Dose: 1 applic Ondansetron HCl (Zofran Injection) 4 mg IVPB Q8H PRN PRN Reason: NAUSEA Last Admin: 03/16/19 09:05 Dose: 4 mg Memantine Hcl Er (14mg Cap_Pt Own Med) 0 each PO DAILY [facility] Last Admin: 03/17/19 09:20 Dose: 1 each Valsartan (Diovan -) 160 mg PO DAILY [facility] Last Admin: 03/17/19 09:18 Dose: Not Given - Objective Vital Signs: Vital Signs Temperature 97.9 F 03/17/19 06:44 Pulse Rate 57 L 03/17/19 06:44 Respiratory Rate 20 03/17/19 06:44 Blood Pressure 109/40 L 03/17/19 06:44 O2 Sat by Pulse Oximetry (%) 97 03/16/19 20:33 Constitutional: Yes: Well Nourished Eyes: Yes: Conjunctiva Clear HENT: Yes: Normocephalic Neck: Yes: Trachea Midline Cardiovascular: Yes: Regular Rate and Rhythm, S1, S2 Respiratory: Yes: Regular, Diminished Gastrointestinal: Yes: Normal Bowel Sounds, Abdomen, Obese Genitourinary: No: Bladder Distention, CVA Tenderness - Left, CVA Tenderness - Right Edema: Yes Edema: LLE: Trace, RLE: Trace Labs: CBC, BMP 03/17/19 08:00 03/17/19 08:00 INR, PTT INR 1.16 (0.83-1.09) H 03/10/19 21:35 Problem List - Problems (1) Acute GI bleeding Code(s): K92.2 - GASTROINTESTINAL HEMORRHAGE, UNSPECIFIED (2) ANI (acute kidney injury) Code(s): N17.9 - ACUTE KIDNEY FAILURE, UNSPECIFIED (3) Anemia Code(s): D64.9 - ANEMIA, UNSPECIFIED (4) Renal insufficiency Code(s): N28.9 - DISORDER OF KIDNEY AND URETER, UNSPECIFIED Assessment/Plan This is a 88 year old woman with hx of hypertension, hyperlipidemia, CHF, dementia, admitted with weakness and cough and noted to have Cr of 1.9. The BUN and Cr worse due to hemodynamic changes, with massive amounts of blood in the gut. The patient is being worked up for Acute GI bleed. Concur with the GI w/u in order. For PRBC and FFP transfusion. Will follow closely. Thank you. Swati Turner MD
--- NOTE | 2019-03-17 14:29 | PN ---
Teaching Attending Note Name of Resident: Daisy Hare ATTENDING PHYSICIAN STATEMENT I saw and evaluated the patient. I reviewed the resident's note and discussed the case with the resident. I agree with the resident's findings and plan as documented. SUBJECTIVE: Transferred to ICU due to a 5 gram drop in Hgb over the past few days. Noted to have melanotic stools earlier. Marginal hemodynamics. No CP or SOB. pRBCs are ordered and pending transfusion. Intake & Output 03/14/19 03/15/19 03/16/19 03/17/19 23:59 23:59 23:59 23:59 Intake Total 880 1000 300 30 Balance 880 1000 300 30 Weight 192 lb 2 oz 195 lb 3 oz 204 lb 14.4 oz Last Vital Signs Temp Pulse Resp BP Pulse Ox 97.2 F L 57 L 20 124/79 97 03/17/19 13:15 03/17/19 13:15 03/17/19 13:15 03/17/19 13:15 03/17/19 10:00 Active Medications Apixaban (Eliquis -) 2.5 mg PO BID [facility] Last Admin: 03/15/19 21:34 Dose: 2.5 mg Atorvastatin Calcium (Lipitor -) 40 mg PO HS [facility] Last Admin: 03/16/19 22:29 Dose: Not Given Chlorhexidine Gluconate (Hibiclens For Decolonization -) 1 applic TP HS [facility] Donepezil HCl (Aricept -) 10 mg PO HS [facility] Ceftriaxone Sodium 2 gm/ (Dextrose) 100 mls @ 200 mls/hr IVPB DAILY [facility] Last Admin: 03/17/19 09:21 Dose: 200 mls/hr Pantoprazole Sodium 80 mg/ (Sodium Chloride) 100 mls @ 10 mls/hr IVPB Q10H [facility] Last Admin: 03/17/19 10:50 Dose: 10 mls/hr Dextrose/Sodium Chloride (D5-Ns -) 1,000 mls @ 42 mls/hr IV ASDIR [facility] Stop: 03/18/19 10:30 Last Admin: 03/17/19 11:22 Dose: 42 mls/hr Methylprednisolone Sodium Succinate (Solu-Medrol -) 40 mg IVPUSH BID [facility] Last Admin: 03/16/19 09:18 Dose: 40 mg Metoprolol Tartrate (Lopressor -) 25 mg PO BID [facility] Last Admin: 03/17/19 09:19 Dose: Not Given Mupirocin (Bactroban Ointment (For Decolonization) -) 1 applic NS BID [facility] Stop: 03/22/19 21:59 Nystatin (Mycostatin Cream -) 1 applic TP BID [facility] Last Admin: 03/17/19 09:19 Dose: 1 applic Ondansetron HCl (Zofran Injection) 4 mg IVPB Q8H PRN PRN Reason: NAUSEA Last Admin: 03/16/19 09:05 Dose: 4 mg Memantine Hcl Er (14mg Cap_Pt Own Med) 0 each PO DAILY [facility] Last Admin: 03/17/19 09:20 Dose: 1 each Valsartan (Diovan -) 160 mg PO DAILY [facility] Last Admin: 03/17/19 09:18 Dose: Not Given Constitutional: Yes: No Distress Eyes: Yes: Conjunctiva Clear HENT: Yes: Atraumatic Cardiovascular: Yes: Regular Rate and Rhythm Respiratory: Yes: few scattered rhonchi Gastrointestinal: Yes: Normal Bowel Sounds, Soft Musculoskeletal: Yes: Muscle Weakness Extremities: Yes: WNL Edema: No Neurological: Yes: Alert, Oriented Psychiatric: Yes: Alert, Oriented Labs: Laboratory Results - last 24 hr 03/17/19 03/17/19 03/17/19 08:00 08:00 09:45 WBC 36.5 H* RBC 2.53 L Hgb 7.4 L Hct 22.2 L D MCV 87.7 MCH 29.1 MCHC 33.1 RDW 15.4 Plt Count 332 MPV 8.8 Sodium 136 Potassium 4.2 Chloride 101 Carbon Dioxide 27 Anion Gap 8 BUN 131 H* Creatinine 1.8 H Creat Clearance w eGFR 26.62 Random Glucose 132 H Calcium 9.4 Total Bilirubin 0.3 AST 25 ALT 39 Alkaline Phosphatase 43 L Total Protein 4.9 L Albumin 1.9 L Blood Type A POSITIVE Antibody Screen Negative Crossmatch See Detail 03/17/19 10:30 WBC RBC Hgb Hct MCV MCH MCHC RDW Plt Count MPV Sodium Potassium Chloride Carbon Dioxide Anion Gap BUN Creatinine Creat Clearance w eGFR Random Glucose Calcium Total Bilirubin AST ALT Alkaline Phosphatase Total Protein Albumin Blood Type A POSITIVE Antibody Screen Crossmatch Problem List - Problems (1) ANI (acute kidney injury) Assessment/Plan: Code(s): N17.9 - ACUTE KIDNEY FAILURE, UNSPECIFIED (2) Elevated troponin Assessment/Plan: Code(s): R74.8 - ABNORMAL LEVELS OF OTHER SERUM ENZYMES (3) Hyponatremia Assessment/Plan: Code(s): E87.1 - HYPO-OSMOLALITY AND HYPONATREMIA (4) Paroxysmal A-fib Assessment/Plan: Code(s): I48.0 - PAROXYSMAL ATRIAL FIBRILLATION (5) Pneumonia Assessment/Plan: Code(s): J18.9 - PNEUMONIA, UNSPECIFIED ORGANISM (6) Anemia Assessment/Plan: Code(s): D64.9 - ANEMIA, UNSPECIFIED PLAN: rPBC transfusion GI for endoscopic evaluation tomorrow ABX per ID O2 as needed Follow CBC Eliquis to be held Monitor off systemic steroids ICU monitoring for worsening GI bleed and hemodynamics Dr Soliz Critical care time spent in reviewing chart, evaluating patient and formulating plan - 36 minutes.
[2019-03-17] MEDS ORDERED: PT OWN MED DRAWER 7, Y5N ONE (15:07)
[2019-03-17] MEDS ORDERED: MIDAZOLAM HCL 2 MG/2 ML SINGLE DOSE VIAL ONE ×3 (22:17→22:40)
--- NOTE | 2019-03-17 23:23 | PROC ---
Central Line Insertion Risks and Benefits Explained: Yes Consent on Chart: Yes (AAOx3; no answer; ) Central Line: Triple Lumen Catheter Anesthesia: 1% Lidocaine Sterile Technique: Yes Ultrasound Guided Assistance: Yes Position: Right Femoral Sterile Dressing Applied: Yes
[2019-03-17] MEDS ORDERED: MIDAZOLAM HCL 2 MG/2 ML SINGLE DOSE VIAL IM ONE ×2 (23:39→23:40)
[2019-03-17] MEDS: DONEPEZIL HCL 10 MG TABLET (FP) PO SCH (23:53)
[2019-03-17] MEDS: MUPIROCIN 2% TOPICAL OINTMENT FOR DECOLONIZATION NS SCH (23:53)
[2019-03-17] MEDS: CHLORHEXIDINE GLUCONATE 4% CLEANSER FOR DECOLONIZATION TP SCH (23:54)
[2019-03-17] MEDS: ATORVASTATIN CA 40 MG TABLET (FP) PO SCH (23:54)
[2019-03-18 03:12] LABS: URINE APPEARANCE CLEAR; URINE BILIRUBIN NEGATIVE (NEGATIVE); URINE COLOR YELLOW; URINE GLUCOSE (UA) NEGATIVE (NEGATIVE); URINE KETONE NEGATIVE (NEGATIVE); URINE LEUK ESTERASE NEGATIVE (NEGATIVE); URINE NITRITE NEGATIVE (NEGATIVE); URINE PROTEIN NEGATIVE (NEGATIVE); URINE UROBILINOGEN 0.2 mg/dL (0.2-1.0)
[2019-03-18] MEDS ORDERED: PT OWN MED DRAWER 7, Y5N ONE ×3 (06:08→13:42)
[2019-03-18] MEDS: PANTOPRAZOLE SODIUM 80 MG in SODIUM CHLORIDE 100 ML IVPB SCH ×3 (06:26→22:31)
[2019-03-18 06:31] LABS: HEMATOCRIT 27.3 % (32.4-45.2); HEMOGLOBIN 9.4 GM/dL (10.7-15.3); MCHC 34.3 g/dl (32.0-36.0); MEAN CELL VOLUME 87.7 fl (80-96); MEAN PLT VOLUME 8.4 fl (7.5-11.1); PLATELET COUNT 237 K/MM3 (134-434); RBC 3.12 M/mm3 (3.60-5.2); RDW 15.5 % (11.6-15.6); WHITE BLOOD COUNT 24.4 K/mm3 (4.0-10.0)
[2019-03-18 07:20] LABS: ALBUMIN 1.8 g/dl (3.4-5.0); ALK PHOS 43 U/L (45-117); ANION GAP 4 MMOL/L (8-16); BILIRUBIN,TOTAL 0.7 mg/dL (0.2-1); BLOOD UREA NITROGEN 101 mg/dL (7-18); CALCIUM 8.7 mg/dL (8.5-10.1); CHLORIDE 106 mmol/L (98-107); CO2 30 mmol/L (21-32); CREATININE 1.6 mg/dL (0.55-1.3); GLUCOSE,RANDOM 158 mg/dL (74-106); MAGNESIUM 2.5 mg/dL (1.8-2.4); PHOSPHOROUS 4.3 mg/dL (2.5-4.9); SGOT/AST 27 U/L (15-37); SGPT/ALT 33 U/L (13-61); SODIUM 140 mmol/L (136-145); TOT PROT 4.6 g/dl (6.4-8.2)
--- NOTE | 2019-03-18 09:26 | PN ---
Progress Note, Physician - Current Medication List Current Medications: Active Medications Apixaban (Eliquis -) 2.5 mg PO BID [facility] Last Admin: 03/15/19 21:34 Dose: 2.5 mg Atorvastatin Calcium (Lipitor -) 40 mg PO HS [facility] Last Admin: 03/17/19 23:54 Dose: Not Given Chlorhexidine Gluconate (Hibiclens For Decolonization -) 1 applic TP HS [facility] Last Admin: 03/17/19 23:54 Dose: 1 applic Donepezil HCl (Aricept -) 10 mg PO HS [facility] Last Admin: 03/17/19 23:53 Dose: Not Given Ceftriaxone Sodium 2 gm/ (Dextrose) 100 mls @ 200 mls/hr IVPB DAILY [facility] Last Admin: 03/17/19 09:21 Dose: 200 mls/hr Pantoprazole Sodium 80 mg/ (Sodium Chloride) 100 mls @ 10 mls/hr IVPB Q10H [facility] Last Admin: 03/18/19 06:26 Dose: 10 mls/hr Dextrose/Sodium Chloride (D5-Ns -) 1,000 mls @ 42 mls/hr IV ASDIR [facility] Stop: 03/18/19 10:30 Last Admin: 03/17/19 11:22 Dose: 42 mls/hr Methylprednisolone Sodium Succinate (Solu-Medrol -) 40 mg IVPUSH BID [facility] Last Admin: 03/16/19 09:18 Dose: 40 mg Metoprolol Tartrate (Lopressor -) 25 mg PO BID [facility] Last Admin: 03/17/19 23:54 Dose: Not Given Mupirocin (Bactroban Ointment (For Decolonization) -) 1 applic NS BID [facility] Stop: 03/22/19 21:59 Last Admin: 03/17/19 23:53 Dose: 1 applic Nystatin (Mycostatin Cream -) 1 applic TP BID [facility] Last Admin: 03/17/19 23:45 Dose: 1 applic Ondansetron HCl (Zofran Injection) 4 mg IVPB Q8H PRN PRN Reason: NAUSEA Last Admin: 03/16/19 09:05 Dose: 4 mg Memantine Hcl Er (14mg Cap_Pt Own Med) 0 each PO DAILY [facility] Last Admin: 03/17/19 09:20 Dose: 1 each Valsartan (Diovan -) 160 mg PO DAILY [facility] Last Admin: 03/17/19 09:18 Dose: Not Given - Objective Vital Signs: Vital Signs Temperature 97.8 F 03/18/19 08:00 Pulse Rate 60 03/18/19 08:00 Respiratory Rate 17 03/18/19 08:00 Blood Pressure 127/49 L 03/18/19 08:00 O2 Sat by Pulse Oximetry (%) 96 03/17/19 22:00 Cardiovascular: Yes: Regular Rate and Rhythm Respiratory: Yes: Regular, CTA Bilaterally Gastrointestinal: Yes: Normal Bowel Sounds, Soft. No: Tenderness Labs: CBC, BMP 03/18/19 05:30 03/18/19 05:30 INR, PTT INR 1.16 (0.83-1.09) H 03/10/19 21:35 Problem List - Problems (1) Elevated troponin Code(s): R74.8 - ABNORMAL LEVELS OF OTHER SERUM ENZYMES (2) Pneumonia Code(s): J18.9 - PNEUMONIA, UNSPECIFIED ORGANISM (3) Paroxysmal A-fib Code(s): I48.0 - PAROXYSMAL ATRIAL FIBRILLATION (4) ANI (acute kidney injury) Code(s): N17.9 - ACUTE KIDNEY FAILURE, UNSPECIFIED Assessment/Plan - Problems (1) ANI (acute kidney injury) Assessment/Plan: -BUN/Cr improved -2/2 to GI bleed -renal on board -monitor renal function daily -Urology on board after hydronephrosis noted on Renal US Code(s): N17.9 - ACUTE KIDNEY FAILURE, UNSPECIFIED (2) Elevated troponin Assessment/Plan: -troponin 0.03 -cardiology on board Code(s): R74.8 - ABNORMAL LEVELS OF OTHER SERUM ENZYMES (3) Hyponatremia Assessment/Plan: -resolved -Na 136 -monitor electrolyte and replete as needed Code(s): E87.1 - HYPO-OSMOLALITY AND HYPONATREMIA (4) Paroxysmal A-fib Assessment/Plan: -continue Metoprolol -observe -dc Eliquis -holter monitor results reviewed-holter no signs of afib Code(s): I48.0 - PAROXYSMAL ATRIAL FIBRILLATION (5) Pneumonia Assessment/Plan: -Pulm and ID on board -WBC 36.5 -leukocytosis -afebrile -continue IV Ceftriaxone and Doxycycline -dc IV Medrol -repeat CXR results reviewed -repeat BC ordered Code(s): J18.9 - PNEUMONIA, UNSPECIFIED ORGANISM (6) Anemia Assessment/Plan: -Hg 7.4 -patient received 2U PRBC transfusion--and lasix 40mg IVP after second unit -s/p 1U FFP -Pantoprazole drip -GI on board -NPO except for medication -Eliquis dc -tele monitoring -patient will have endoscopy Code(s): D64.9 - ANEMIA, UNSPECIFIED (7) GI Bleed Assessment/Plan: -Hg 9 -Monitor--for egd
[2019-03-18] MEDS ORDERED: DEXTROSE 5%-WATER 100 ML IVPB ONE (09:45)
[2019-03-18] MEDS: CEFTRIAXONE 2 GM in DEXTROSE 5%-WATER 100 ML IVPB SCH (09:50)
[2019-03-18] MEDS: METOPROLOL TARTRATE 25 MG TABLET (FP) PO SCH ×2 (09:53→21:47)
[2019-03-18] MEDS: MUPIROCIN 2% TOPICAL OINTMENT FOR DECOLONIZATION NS SCH ×2 (09:54→21:46)
[2019-03-18] MEDS: MEMANTINE 14 MG PO SCH (09:54)
[2019-03-18] MEDS: NYSTATIN 100,000 UNIT/GM TOPICAL CREAM 15 GM TUBE TP SCH ×2 (11:37→21:47)
[2019-03-18] MEDS: DEXTROSE 5%-NORMAL SALINE 1,000 ML IV SCH (11:37)
--- NOTE | 2019-03-18 12:01 | PN ---
Progress Note (short form) - Note Progress Note: no respiratory distress transferred to ICU awaiting endoscopy Vital Signs Period Temp Pulse Resp BP Sys/Angel Pulse Ox Last 24 Hr 97.2 F-97.8 F 46-104 13-22 78-137/38-103 96-96 cor-rrr lungs clear abd soft,nt ext no edema CBC, BMP 03/18/19 05:30 03/18/19 05:30 Microbiology 03/16/19 16:00 Blood - Peripheral Venous Blood Culture - Preliminary NO GROWTH OBTAINED AFTER 24 HOURS, INCUBATION TO CONTINUE FOR 4 DAYS. 03/16/19 15:45 Blood - Peripheral Venous Blood Culture - Preliminary NO GROWTH OBTAINED AFTER 24 HOURS, INCUBATION TO CONTINUE FOR 4 DAYS. 03/10/19 21:35 Blood - Peripheral Venous Blood Culture - Final NO GROWTH AFTER 5 DAYS INCUBATION 03/10/19 21:35 Blood - Peripheral Venous Blood Culture - Final NO GROWTH AFTER 5 DAYS INCUBATION 03/12/19 14:05 Urine For Antigen Detection Legionella Antigen - Final 03/12/19 14:05 Urine For Antigen Detection Streptococcus pneumoniae Antigen (M - Final 03/11/19 09:41 Urine - Urine - Catheterized Urine Culture - Final NO GROWTH OBTAINED cxray no infiltrate a/p GI bleed-for endoscopy today leukocytosis-suspect secondary to steroids and stress from gi bleed trending down blood cultures negative CAP- rocephin/doxycycline day #7 of 7 clinically improved cxray improved d/c antibiotics please call back if needed d/w icu staff Problem List - Problems (1) Pneumonia Code(s): J18.9 - PNEUMONIA, UNSPECIFIED ORGANISM (2) Hyponatremia Code(s): E87.1 - HYPO-OSMOLALITY AND HYPONATREMIA (3) Hypokalemia Code(s): E87.6 - HYPOKALEMIA (4) Renal insufficiency Code(s): N28.9 - DISORDER OF KIDNEY AND URETER, UNSPECIFIED
--- NOTE | 2019-03-18 12:44 | PN ---
Teaching Attending Note Name of Resident: Daisy Hare ATTENDING PHYSICIAN STATEMENT I saw and evaluated the patient. I reviewed the resident's note and discussed the case with the resident. I agree with the resident's findings and plan as documented. SUBJECTIVE: Pt seen and examined in the ICU. Received 2 units PRBC yesterday. Plan for endoscopy today. Thirsty, denies abdominal pain, shortness of breath or chest pain. OBJECTIVE: Vital Signs Period Temp Pulse Resp BP Sys/Angel Pulse Ox Last 24 Hr 97.2 F-97.8 F 46-104 13-22 78-137/38-103 96-96 Intake & Output 03/15/19 03/16/19 03/17/19 03/18/19 23:59 23:59 23:59 23:59 Intake Total 1000 300 945 551 Output Total 200 1000 Balance 1000 300 745 -449 Weight 87.146 kg 88.536 kg 92.941 kg 91.881 kg Gen: NAD at rest Heart: RRR Lung: decreased breath sounds at the bases Abd: soft, nontender Ext: no edema CBC, BMP 03/18/19 05:30 03/18/19 05:30 Active Medications Apixaban (Eliquis -) 2.5 mg PO BID [facility] Last Admin: 03/15/19 21:34 Dose: 2.5 mg Atorvastatin Calcium (Lipitor -) 40 mg PO [facility] Last Admin: 03/17/19 23:54 Dose: Not Given Chlorhexidine Gluconate (Hibiclens For Decolonization -) 1 applic TP [facility] Last Admin: 03/17/19 23:54 Dose: 1 applic Donepezil HCl (Aricept -) 10 mg PO [facility] Last Admin: 03/17/19 23:53 Dose: Not Given Pantoprazole Sodium 80 mg/ (Sodium Chloride) 100 mls @ 10 mls/hr IVPB Q10H [facility] Last Admin: 03/18/19 06:26 Dose: 10 mls/hr Metoprolol Tartrate (Lopressor -) 25 mg PO BID [facility] Last Admin: 03/18/19 09:53 Dose: 25 mg Mupirocin (Bactroban Ointment (For Decolonization) -) 1 applic NS BID [facility] Stop: 03/22/19 21:59 Last Admin: 03/18/19 09:54 Dose: 1 applic Nystatin (Mycostatin Cream -) 1 applic TP BID [facility] Last Admin: 03/18/19 11:37 Dose: 1 applic Ondansetron HCl (Zofran Injection) 4 mg IVPB Q8H PRN PRN Reason: NAUSEA Last Admin: 03/16/19 09:05 Dose: 4 mg Memantine Hcl Er (14mg Cap_Pt Own Med) 0 each PO DAILY [facility] Last Admin: 03/18/19 09:54 Dose: 1 each Valsartan (Diovan -) 160 mg PO DAILY [facility] Last Admin: 03/17/19 09:18 Dose: Not Given ASSESSMENT AND PLAN: GI Bleed Acute Blood Loss Anemia Pneumonia LV Diastolic Dysfunction Acute Kidney Injury HTN Hyperlipidemia Lung Nodules Smoker - monitor H/H - transfuse as needed - protonix - for endoscopy - d/c anticoagulation - NPO - complete antibiotics - disposition pending endoscopy
--- NOTE | 2019-03-18 13:12 | PN ---
Physical Exam: SUBJECTIVE: Patient seen this morning and complains of thirst. Crespo placed overnight for bradycardia and constant walking. Patient for EGD today. OBJECTIVE: Vital Signs Temperature 97.8 F 03/18/19 08:00 Pulse Rate 57 L 03/18/19 10:00 Respiratory Rate 20 03/18/19 10:00 Blood Pressure 135/53 L 03/18/19 10:00 O2 Sat by Pulse Oximetry (%) 96 03/18/19 09:00 GENERAL: Awake, alert HEAD: Normal with no signs of trauma. EYES: Pupils equal, round and reactive to light, extraocular movements intact, sclera anicteric, conjunctiva clear. No lid lag. EARS, NOSE, THROAT: Moist mucous membranes. Skin climate change risk assessor the middle of her lip LUNGS: Breath sounds equal, clear to auscultation bilaterally. No wheezes, and no crackles. No accessory muscle use. HEART: Regular rate and rhythm, normal S1 and S2 without murmur, rub or gallop. ABDOMEN: Soft, nontender, not distended, normoactive bowel sounds, no guarding, no rebound, no masses. No hepatomegaly or splenomegaly. : long skin growth under right groin LOWER EXTREMITIES: 2+ pulses, warm, well-perfused. No calf tenderness. No peripheral edema. SKIN: Warm, dry, normal turgor, no rashes or lesions noted. CBCD WBC 24.4 K/mm3 (4.0-10.0) H 03/18/19 05:30 RBC 3.12 M/mm3 (3.60-5.2) L 03/18/19 05:30 Hgb 9.4 GM/dL (10.7-15.3) L 03/18/19 05:30 Hct 27.3 % (32.4-45.2) L D 03/18/19 05:30 MCV 87.7 fl (80-96) 03/18/19 05:30 MCHC 34.3 g/dl (32.0-36.0) 03/18/19 05:30 RDW 15.5 % (11.6-15.6) 03/18/19 05:30 Plt Count 237 K/MM3 (134-434) D 03/18/19 05:30 MPV 8.4 fl (7.5-11.1) 03/18/19 05:30 CMP Sodium 140 mmol/L (136-145) 03/18/19 05:30 Potassium 4.0 mmol/L (3.5-5.1) 03/18/19 05:30 Chloride 106 mmol/L (98-107) 03/18/19 05:30 Carbon Dioxide 30 mmol/L (21-32) 03/18/19 05:30 Anion Gap 4 MMOL/L (8-16) L 03/18/19 05:30 BUN 101 mg/dL (7-18) H 03/18/19 05:30 Creatinine 1.6 mg/dL (0.55-1.3) H 03/18/19 05:30 Creat Clearance w eGFR 30.49 (>60) 03/18/19 05:30 Calcium 8.7 mg/dL (8.5-10.1) 03/18/19 05:30 Total Bilirubin 0.7 mg/dL (0.2-1) 03/18/19 05:30 AST 27 U/L (15-37) 03/18/19 05:30 ALT 33 U/L (13-61) 03/18/19 05:30 Alkaline Phosphatase 43 U/L (45-117) L 03/18/19 05:30 Total Protein 4.6 g/dl (6.4-8.2) L 03/18/19 05:30 Albumin 1.8 g/dl (3.4-5.0) L 03/18/19 05:30 Active Medications Apixaban (Eliquis -) 2.5 mg PO BID [facility] Last Admin: 03/15/19 21:34 Dose: 2.5 mg Atorvastatin Calcium (Lipitor -) 40 mg PO [facility] Last Admin: 03/17/19 23:54 Dose: Not Given Chlorhexidine Gluconate (Hibiclens For Decolonization -) 1 applic TP [facility] Last Admin: 03/17/19 23:54 Dose: 1 applic Donepezil HCl (Aricept -) 10 mg PO [facility] Last Admin: 03/17/19 23:53 Dose: Not Given Pantoprazole Sodium 80 mg/ (Sodium Chloride) 100 mls @ 10 mls/hr IVPB Q10H [facility] Last Admin: 03/18/19 06:26 Dose: 10 mls/hr Metoprolol Tartrate (Lopressor -) 25 mg PO BID [facility] Last Admin: 03/18/19 09:53 Dose: 25 mg Mupirocin (Bactroban Ointment (For Decolonization) -) 1 applic NS BID [facility] Stop: 03/22/19 21:59 Last Admin: 03/18/19 09:54 Dose: 1 applic Nystatin (Mycostatin Cream -) 1 applic TP BID [facility] Last Admin: 03/18/19 11:37 Dose: 1 applic Ondansetron HCl (Zofran Injection) 4 mg IVPB Q8H PRN PRN Reason: NAUSEA Last Admin: 03/16/19 09:05 Dose: 4 mg Memantine Hcl Er (14mg Cap_Pt Own Med) 0 each PO DAILY [facility] Last Admin: 03/18/19 09:54 Dose: 1 each Valsartan (Diovan -) 160 mg PO DAILY [facility] Last Admin: 03/17/19 09:18 Dose: Not Given ASSESSMENT/PLAN: Patient is a 88 y/o female with a history of CHF, HTN, HLD, and dementia who is admitted for PNA and evaluated for new GI bleed. Neuro - Awake, lethargic - dementia at baseline, appears to be change in baseline - donepizil 10 mg hs Cardio - GI bleed, diastolic blood pressures on the low side, pulses stable - hx afib: hold AC in lieu of bleed, continue metoprolol 25 BID - hx of HTN, hold BP meds with current vitals - hx CHF, Echo: EF 60%, LV and RV normal fxn, type I diastolic dysfunction - LL US: no DVT, left popliteal fossa cyst - continue atorvastatin 40 mg hs Pulm - L lobe PNA, last day of antibiotics today - CXR: congestive changes and infiltrate - steroids held as to not exacerbate bleeding - long hx of smoking, f/u chest CT in 4-6 wks to follow - Chest CT: focal opacity, spiculated nodules GI - acute GI bleed, likely upper - received 2 units PRBC, 1 unit FFP - f/u endoscopy report today - protonix drip d/c if EGD report normal Renal/ - left hydronephrosis, per Dr. Conley monitor for now - ANI, 2/2 to GI bleed and steroid use, continue to monitor, function increasing - avoid nephrotoxic agents ID - PNA, completed treatment - WBC increase, likely 2/2 to steroid use - blood cx pending, ucx negative, urine antigens negative - afebrile Heme - Hgb appropriately fish after 2 units - transfuse if falls below 7 - AC held, SCD's for ppx FEN - NPO for endoscopy tomorrow, diet per GI - D5 NS @ 42 - Line R femoral, if EGD normal can pull Dispo: if EGD normal can monitor on tele - patients daughter would like to be updated on everything concerning her mother, refuses for her mother to go back to 6th floor Visit type - Emergency Visit Emergency Visit: No - New Patient This patient is new to me today: No - Critical Care Critical Care patient: Yes Total Critical Care Time (in minutes): 35 Critical Care Statement: The care of this patient involved high complexity decision making to prevent further life threatening deterioration of the patient 's condition and/or to evaluate & treat vital organ system(s) failure or risk of failure.
--- NOTE | 2019-03-18 18:22 | PN ---
Progress Note (short form) - Note Progress Note: EGD performed today revealing blood in the duodenum with a 7-8mm duodenal bulb ulcer with red spots and oozing s/p epi and clips. Another small clean based ulcer and gastric erosions with small clean based ulcer. No bleeding at end of procedure. See scanned report for details. Recommendations: -Continue to monitor Hb and for evidence of bleeding -Continue PPI infusion for 72 hours then change to BID if stable Hb and no further bleeding -Hold antithrombotics for now, could resume in 24-48hrs if Hb stable and if clinically indicated -Check H pylori stool Ag -Avoid nonessential NSAIDs -If further overt bleeding with acute drop in Hb or hemodynamic instability please notify GI for possible repeat EGD with therapeutic intent Discussed with MICU team
[2019-03-18] MEDS: DONEPEZIL HCL 10 MG TABLET (FP) PO SCH (21:46)
[2019-03-18] MEDS: CHLORHEXIDINE GLUCONATE 4% CLEANSER FOR DECOLONIZATION TP SCH (21:46)
[2019-03-18] MEDS: ATORVASTATIN CA 40 MG TABLET (FP) PO SCH (21:47)
[2019-03-18] MEDS ORDERED: LORazepam 2 MG/ML SDV VIAL IVPUSH ONE (21:57)
[2019-03-19] MEDS: PANTOPRAZOLE SODIUM 80 MG in SODIUM CHLORIDE 100 ML IVPB SCH ×3 (04:43→21:46)
[2019-03-19 06:48] LABS: HEMATOCRIT 29.8 % (32.4-45.2); MCH 29.6 pg (25.7-33.7); MCHC 33.5 g/dl (32.0-36.0); MEAN CELL VOLUME 88.3 fl (80-96); PLATELET COUNT 225 K/MM3 (134-434); RBC 3.38 M/mm3 (3.60-5.2); RDW 15.8 % (11.6-15.6); WHITE BLOOD COUNT 24.2 K/mm3 (4.0-10.0)
[2019-03-19 07:26] LABS: ALBUMIN 2.1 g/dl (3.4-5.0); ALK PHOS 50 U/L (45-117); ANION GAP 3 MMOL/L (8-16); BILIRUBIN,TOTAL 0.5 mg/dL (0.2-1); BLOOD UREA NITROGEN 68 mg/dL (7-18); CALCIUM 8.9 mg/dL (8.5-10.1); CHLORIDE 110 mmol/L (98-107); CO2 32 mmol/L (21-32); CREATININE 1.3 mg/dL (0.55-1.3); GLUCOSE,RANDOM 130 mg/dL (74-106); MAGNESIUM 2.7 mg/dL (1.8-2.4); PHOSPHOROUS 3.2 mg/dL (2.5-4.9); POTASSIUM 3.9 mmol/L (3.5-5.1); SGOT/AST 27 U/L (15-37); SGPT/ALT 34 U/L (13-61); SODIUM 146 mmol/L (136-145); TOT PROT 4.9 g/dl (6.4-8.2)
--- NOTE | 2019-03-19 08:18 | PN ---
Progress Note, Physician - Current Medication List Current Medications: Active Medications Apixaban (Eliquis -) 2.5 mg PO BID [facility] Last Admin: 03/15/19 21:34 Dose: 2.5 mg Atorvastatin Calcium (Lipitor -) 40 mg PO [facility] Last Admin: 03/18/19 21:47 Dose: Not Given Chlorhexidine Gluconate (Hibiclens For Decolonization -) 1 applic TP HS [facility] Last Admin: 03/18/19 21:46 Dose: 1 applic Donepezil HCl (Aricept -) 10 mg PO [facility] Last Admin: 03/18/19 21:46 Dose: Not Given Pantoprazole Sodium 80 mg/ (Sodium Chloride) 100 mls @ 10 mls/hr IVPB Q10H [facility] Last Admin: 03/19/19 04:43 Dose: Not Given Metoprolol Tartrate (Lopressor -) 25 mg PO BID [facility] Last Admin: 03/18/19 21:47 Dose: Not Given Mupirocin (Bactroban Ointment (For Decolonization) -) 1 applic NS BID [facility] Stop: 03/22/19 21:59 Last Admin: 03/18/19 21:46 Dose: 1 applic Nystatin (Mycostatin Cream -) 1 applic TP BID [facility] Last Admin: 03/18/19 21:47 Dose: 1 applic Ondansetron HCl (Zofran Injection) 4 mg IVPB Q8H PRN PRN Reason: NAUSEA Last Admin: 03/16/19 09:05 Dose: 4 mg Memantine Hcl Er (14mg Cap_Pt Own Med) 0 each PO DAILY [facility] Last Admin: 03/18/19 09:54 Dose: 1 each Valsartan (Diovan -) 160 mg PO DAILY [facility] Last Admin: 03/17/19 09:18 Dose: Not Given - Objective Vital Signs: Vital Signs Temperature 97.3 F L 03/19/19 06:00 Pulse Rate 50 L 03/19/19 06:00 Respiratory Rate 14 03/19/19 06:00 Blood Pressure 117/58 L 03/19/19 06:00 O2 Sat by Pulse Oximetry (%) 96 03/18/19 20:31 Cardiovascular: Yes: Regular Rate and Rhythm Respiratory: Yes: Regular, CTA Bilaterally Gastrointestinal: Yes: Normal Bowel Sounds, Soft Labs: CBC, BMP 03/19/19 05:30 03/19/19 05:30 INR, PTT INR 1.16 (0.83-1.09) H 03/10/19 21:35 Problem List - Problems (1) Elevated troponin Code(s): R74.8 - ABNORMAL LEVELS OF OTHER SERUM ENZYMES (2) Pneumonia Code(s): J18.9 - PNEUMONIA, UNSPECIFIED ORGANISM (3) Paroxysmal A-fib Code(s): I48.0 - PAROXYSMAL ATRIAL FIBRILLATION (4) ANI (acute kidney injury) Code(s): N17.9 - ACUTE KIDNEY FAILURE, UNSPECIFIED Assessment/Plan - Problems (1) ANI (acute kidney injury) Assessment/Plan: -BUN/Cr improved -2/2 to GI bleed -renal on board -monitor renal function daily -Urology on board after hydronephrosis noted on Renal US Code(s): N17.9 - ACUTE KIDNEY FAILURE, UNSPECIFIED (2) Elevated troponin Assessment/Plan: -troponin 0.03 -cardiology on board Code(s): R74.8 - ABNORMAL LEVELS OF OTHER SERUM ENZYMES (3) Hyponatremia Assessment/Plan: -resolved -Na 136 -monitor electrolyte and replete as needed Code(s): E87.1 - HYPO-OSMOLALITY AND HYPONATREMIA (4) Paroxysmal A-fib--NO EVIDENSE ON HOLTER --IN SINUS Assessment/Plan: -continue Metoprolol -observe -dc Eliquis -holter monitor results reviewed-holter no signs of afib Code(s): I48.0 - PAROXYSMAL ATRIAL FIBRILLATION (5) Pneumonia Assessment/Plan: -Pulm and ID on board -WBC 24 -leukocytosis -afebrile -ABX PER ID -dc IV Medrol -repeat CXR results reviewed -repeat BC Code(s): J18.9 - PNEUMONIA, UNSPECIFIED ORGANISM (6) Anemia Assessment/Plan: -Hg 10 -patient received 2U PRBC transfusion--and lasix 40mg IVP after second unit -s/p 1U FFP -Pantoprazole drip -GI on board---EGD--GASTRIC ULCERS -NPO except for medication -Eliquis dc -tele monitoring Code(s): D64.9 - ANEMIA, UNSPECIFIED (7) GI Bleed Assessment/Plan: -Hg 10 -Monitor--GASTRIC ULCERS
--- NOTE | 2019-03-19 08:45 | PN ---
Physical Exam: SUBJECTIVE: Patient seen this morning and complains of thirst, no acute events overnight. OBJECTIVE: Vital Signs Temperature 97.3 F L 03/19/19 06:00 Pulse Rate 61 03/19/19 12:00 Respiratory Rate 17 03/19/19 12:00 Blood Pressure 127/56 L 03/19/19 12:00 O2 Sat by Pulse Oximetry (%) 93 L 03/19/19 08:43 GENERAL: Awake, alert oriented x2 HEAD: Normal with no signs of trauma. EYES: Pupils equal, round and reactive to light, extraocular movements intact, sclera anicteric, conjunctiva clear. No lid lag. EARS, NOSE, THROAT: Moist mucous membranes. Skin global director air and climate change the middle of her lip LUNGS: Breath sounds equal, clear to auscultation bilaterally. No wheezes, and no crackles. No accessory muscle use. HEART: Regular rate and rhythm, normal S1 and S2 without murmur, rub or gallop. ABDOMEN: Soft, nontender, not distended, normoactive bowel sounds, no guarding, no rebound, no masses. LOWER EXTREMITIES: 2+ pulses, warm, well-perfused. No calf tenderness. No peripheral edema. SKIN: spherical skin growth 8 cm x 5 cm, with 2 cm x 1.5 cm ulceration, flesh colored under right groin CBCD WBC 24.2 K/mm3 (4.0-10.0) H 03/19/19 05:30 RBC 3.38 M/mm3 (3.60-5.2) L 03/19/19 05:30 Hgb 10.0 GM/dL (10.7-15.3) L 03/19/19 05:30 Hct 29.8 % (32.4-45.2) L 03/19/19 05:30 MCV 88.3 fl (80-96) 03/19/19 05:30 MCHC 33.5 g/dl (32.0-36.0) 03/19/19 05:30 RDW 15.8 % (11.6-15.6) H 03/19/19 05:30 Plt Count 225 K/MM3 (134-434) 03/19/19 05:30 MPV 8.0 fl (7.5-11.1) 03/19/19 05:30 CMP Sodium 146 mmol/L (136-145) H 03/19/19 05:30 Potassium 3.9 mmol/L (3.5-5.1) 03/19/19 05:30 Chloride 110 mmol/L (98-107) H 03/19/19 05:30 Carbon Dioxide 32 mmol/L (21-32) 03/19/19 05:30 Anion Gap 3 MMOL/L (8-16) L 03/19/19 05:30 BUN 68 mg/dL (7-18) H 03/19/19 05:30 Creatinine 1.3 mg/dL (0.55-1.3) 03/19/19 05:30 Creat Clearance w eGFR 38.75 (>60) 03/19/19 05:30 Calcium 8.9 mg/dL (8.5-10.1) 03/19/19 05:30 Total Bilirubin 0.5 mg/dL (0.2-1) 03/19/19 05:30 AST 27 U/L (15-37) 03/19/19 05:30 ALT 34 U/L (13-61) 03/19/19 05:30 Alkaline Phosphatase 50 U/L (45-117) 03/19/19 05:30 Total Protein 4.9 g/dl (6.4-8.2) L 03/19/19 05:30 Albumin 2.1 g/dl (3.4-5.0) L 03/19/19 05:30 Active Medications Apixaban (Eliquis -) 2.5 mg PO BID [facility] Last Admin: 03/15/19 21:34 Dose: 2.5 mg Atorvastatin Calcium (Lipitor -) 40 mg PO [facility] Last Admin: 03/18/19 21:47 Dose: Not Given Chlorhexidine Gluconate (Hibiclens For Decolonization -) 1 applic TP [facility] Last Admin: 03/18/19 21:46 Dose: 1 applic Donepezil HCl (Aricept -) 10 mg PO [facility] Last Admin: 03/18/19 21:46 Dose: Not Given Pantoprazole Sodium 80 mg/ (Sodium Chloride) 100 mls @ 10 mls/hr IVPB Q10H [facility] Last Admin: 03/19/19 04:43 Dose: Not Given Metoprolol Tartrate (Lopressor -) 25 mg PO BID [facility] Last Admin: 03/18/19 21:47 Dose: Not Given Mupirocin (Bactroban Ointment (For Decolonization) -) 1 applic NS BID [facility] Stop: 03/22/19 21:59 Last Admin: 03/18/19 21:46 Dose: 1 applic Nystatin (Mycostatin Cream -) 1 applic TP BID [facility] Last Admin: 03/18/19 21:47 Dose: 1 applic Ondansetron HCl (Zofran Injection) 4 mg IVPB Q8H PRN PRN Reason: NAUSEA Last Admin: 03/16/19 09:05 Dose: 4 mg Memantine Hcl Er (14mg Cap_Pt Own Med) 0 each PO DAILY [facility] Last Admin: 03/18/19 09:54 Dose: 1 each Valsartan (Diovan -) 160 mg PO DAILY [facility] Last Admin: 03/17/19 09:18 Dose: Not Given ASSESSMENT/PLAN: Patient is a 88 y/o female with a history of CHF, HTN, HLD, and dementia who is admitted for PNA and evaluated for new GI bleed. Neuro - Awake and oriented x2 - dementia at baseline, at baseline - donepizil 10 mg hs Cardio - GI bleed, diastolic blood pressures on the low side, pulses stable - hx afib: hold AC in lieu of bleed, continue metoprolol 25 BID - hx of HTN, hold BP meds with current vitals - hx CHF, Echo: EF 60%, LV and RV normal fxn, type I diastolic dysfunction - LL US: no DVT, left popliteal fossa cyst - continue atorvastatin 40 mg hs Pulm - L lobe PNA, completed antibiotics - CXR: congestive changes and infiltrate - long hx of smoking, f/u chest CT in 4-6 wks to follow - Chest CT: focal opacity, spiculated nodules GI - acute GI bleed 2/2 to upper GI ulceration - received 2 units PRBC, 1 unit FFP - endoscopy: 7-8 mm duocenal bulb ulcer with red spots, ozzing, epi and clips - protonix drip for 72 hours, can restart AC after 48 hours Renal/ - left hydronephrosis, per Dr. Conley monitor for now - ANI resolved - avoid nephrotoxic agents ID - PNA, completed treatment - WBC trending down - blood cx no growth, ucx negative, urine antigens negative - afebrile - ulceration of skin growth Heme - Hgb appropriately fish after 2 units - transfuse if falls below 7 - AC held, SCD's for ppx Derm - seen by vascular, nothing to do in the hospital, outpatient procedure - ulcer to be kept clean and dry FEN - NPO, discuss diet with GI - D5 NS @ 42 - central line placed 03/19 Dispo: patient can be monitored on med/surg Visit type - Emergency Visit Emergency Visit: No - New Patient This patient is new to me today: No - Critical Care Critical Care patient: Yes Total Critical Care Time (in minutes): 40 Critical Care Statement: The care of this patient involved high complexity decision making to prevent further life threatening deterioration of the patient 's condition and/or to evaluate & treat vital organ system(s) failure or risk of failure.
[2019-03-19] MEDS ORDERED: PT OWN MED DRAWER 7, Y5N ONE (11:36)
[2019-03-19] MEDS: METOPROLOL TARTRATE 25 MG TABLET (FP) PO SCH ×2 (11:54→22:53)
[2019-03-19] MEDS: MEMANTINE 14 MG PO SCH (11:56)
[2019-03-19] MEDS: MUPIROCIN 2% TOPICAL OINTMENT FOR DECOLONIZATION NS SCH ×2 (11:58→22:53)
[2019-03-19] MEDS: NYSTATIN 100,000 UNIT/GM TOPICAL CREAM 15 GM TUBE TP SCH ×2 (11:58→21:45)
--- NOTE | 2019-03-19 12:00 | PN ---
Progress Note (short form) - Note Progress Note: Renal follow up for CKD Pt seen and examined at the bedside awake and alert complains of diffuse body discomfort denies any pain, sob, cough, fever or chills Vital Signs Temperature 97.3 F L 03/19/19 06:00 Pulse Rate 62 03/19/19 10:00 Respiratory Rate 23 H 03/19/19 10:00 Blood Pressure 109/77 03/19/19 10:00 O2 Sat by Pulse Oximetry (%) 93 L 03/19/19 08:43 Intake & Output 03/16/19 03/17/19 03/18/19 03/19/19 23:59 23:59 23:59 23:59 Intake Total 460 638 5548 611 Output Total 200 1800 Balance 300 745 -536 611 Weight 88.536 kg 92.941 kg 91.881 kg 91.739 kg NAD neck supple, no JVD RRR, no M/R CTA, no rales or wheeze soft NT/ND, Obese No LE edema CBC, BMP 03/19/19 05:30 03/19/19 05:30 Current Medications Atorvastatin Calcium (Lipitor -) 40 mg PO HS [facility] Last Admin: 03/18/19 21:47 Dose: Not Given Chlorhexidine Gluconate (Hibiclens For Decolonization -) 1 applic TP HS [facility] Last Admin: 03/18/19 21:46 Dose: 1 applic Donepezil HCl (Aricept -) 10 mg PO HS [facility] Last Admin: 03/18/19 21:46 Dose: Not Given Pantoprazole Sodium 80 mg/ (Sodium Chloride) 100 mls @ 10 mls/hr IVPB Q10H [facility] Last Admin: 03/19/19 04:43 Dose: Not Given Metoprolol Tartrate (Lopressor -) 25 mg PO BID [facility] Last Admin: 03/18/19 21:47 Dose: Not Given Mupirocin (Bactroban Ointment (For Decolonization) -) 1 applic NS BID [facility] Stop: 03/22/19 21:59 Last Admin: 03/18/19 21:46 Dose: 1 applic Nystatin (Mycostatin Cream -) 1 applic TP BID [facility] Last Admin: 03/18/19 21:47 Dose: 1 applic Ondansetron HCl (Zofran Injection) 4 mg IVPB Q8H PRN PRN Reason: NAUSEA Last Admin: 03/16/19 09:05 Dose: 4 mg Memantine Hcl Er (14mg Cap_Pt Own Med) 0 each PO DAILY [facility] Last Admin: 03/18/19 09:54 Dose: 1 each 88 year old woman with hx of hypertension, hyperlipidemia, CHF, dementia, smoker who presented with weakness and cough and noted to have Cr of 1.9. #CKD (baseline Cr 1.64) #Hydronephrosis #SOB #COPD exacerbation #Hypertension #HLD Renal function stable, BUN levels improving Baseline Cr from PMD office is 1.64 from 02-28-2019 Renal US showed left hydronephrosis which was also noted on prior imaging of Abd. Given that kidney also shows significant cortical atrophy this is likely to be long standing. trend renal function and electrolytes Thank you Irving King DO
--- NOTE | 2019-03-19 12:05 | CONSULT ---
- Consultation REQUESTING PROVIDER: Wound Care - Archie Tucker CONSULT REQUEST: We have been asked to surgically evaluate this patient for perianal lesion PCP: Delia Butler HPI: Called to evaluate 88 yo female w/ PMHx as noted below. Patient admitted to [facility] w/ multiple medical problems and being managed by ICU. Patient's daughters are present and provided more detail with regards to perianal mass. Patient has had this for quite awhile. They were told by PCP if it doesn't bother her then leave it alone. Today, they discovered that the soft tissue mass now has an ulceration and they are concerned about infection. Otherwise, patient NOT complaining about mass. PMHx: Dementia, CHF, HTN, HLD PSHx: Social: Smoker Home Meds Amlodipine Besylate 10 mg PO DAILY 03/11/19 Aspirin 81 mg PO DAILY 03/11/19 Atorvastatin Ca [Lipitor] 40 mg PO HS 03/11/19 Cholecalciferol (Vitamin D3) [Vitamin D] 2,000 unit PO DAILY 03/11/19 Cyanocobalamin (Vitamin B-12) [Vitamin B-12] 1,000 mcg PO DAILY 03/11/19 Donepezil HCl 10 mg PO DAILY 03/11/19 Escitalopram Oxalate [Lexapro -] 10 mg PO DAILY 03/11/19 Folic Acid 1 mg PO DAILY 03/11/19 Furosemide 40 mg PO DAILY 03/11/19 Memantine HCl [Memantine HCl ER] 14 mg PO DAILY 03/11/19 Metoprolol Succinate [Kapspargo Sprinkle] 25 mg PO DAILY 03/11/19 Potassium Chloride 20 meq PO DAILY 03/11/19 Allergies: NKDA ROS: Negative except for what's comtained in HPI. PE: GEN: Awake, alert, nad ABD: Obese habitus PERIRECTAL: Anus is normal in appearance. Good tone. Soft tissue pedunculated mass about 2-3cm from anus. Size of mass ~ 6 cm x 6 cm. Lesion is ~ 3 cm x 2 cm, clean with minimal fibrogranular base. No signs of infection. Last Vital Signs Temp Pulse Resp BP Pulse Ox 97.3 F L 62 23 H 109/77 93 L 03/19/19 06:00 03/19/19 10:00 03/19/19 10:00 03/19/19 10:00 03/19/19 08:43 CBC, BMP 03/19/19 05:30 03/19/19 05:30 INR, PTT INR 1.16 (0.83-1.09) H 03/10/19 21:35 Problem List - Problems (1) Mass of perirectal soft tissue Assessment/Plan: 88 yo female with ongoing mulitple medical problems. Has a 6 cm x 6 cm soft tissue pedunculated mass about 2-3 cm from anus. Per patient's RN, Dermatology was consulted and said this isn't an emergency and can be followed as an out-patient. f/u w/ Dermatology as out-patient Reposition every two hours while in bed to prevent sacral DTI/ulcers Use drawsheets and Trendelenburg when repositioning to reduce friction and shear Manage incontinence via timely cleansing, use of appropriate incontinence disposables and use of barrier ointment to intact skin Ensure adequate hydration/nutrition, supplementation per primary team Ensure off-loading to all bony areas (heels, ankles, hips and tailbone) with Allevyn/Optifoam No surgical intervention. Cont Medical management On behalf of Dr. Tucker, thank you for the opportunity to participate in your patient's care. Code(s): K62.89 - OTHER SPECIFIED DISEASES OF ANUS AND RECTUM (2) ANI (acute kidney injury) Code(s): N17.9 - ACUTE KIDNEY FAILURE, UNSPECIFIED (3) Acute GI bleeding Code(s): K92.2 - GASTROINTESTINAL HEMORRHAGE, UNSPECIFIED (4) Pneumonia Code(s): J18.9 - PNEUMONIA, UNSPECIFIED ORGANISM Visit type - Case Type Case Type: ED Admission - Emergency Emergency Visit: Yes ED Registration Date: 03/10/19 Care time: The patient presented to the Emergency Department on the above date and was hospitalized for further evaluation of their emergent condition. - New patient This patient is new to me today: Yes Date on this admission: 03/19/19
--- NOTE | 2019-03-19 12:13 | PN ---
Teaching Attending Note Name of Resident: Daisy Hare ATTENDING PHYSICIAN STATEMENT I saw and evaluated the patient. I reviewed the resident's note and discussed the case with the resident. I agree with the resident's findings and plan as documented. SUBJECTIVE: Pt seen and examined in the ICU. s/p EGD showing oozing duodenal bulb ulcer s/p clipping and epinephrine and clean gastric ulcer. H/H has been stable. Asking for water. OBJECTIVE: Vital Signs Period Temp Pulse Resp BP Sys/Angel Pulse Ox Last 24 Hr 97.2 F-98.0 F 45-62 12-23 97-132/36-77 93-96 Intake & Output 03/16/19 03/17/19 03/18/19 03/19/19 23:59 23:59 23:59 23:59 Intake Total 923 276 9570 611 Output Total 200 1800 Balance 300 745 -536 611 Weight 88.536 kg 92.941 kg 91.881 kg 91.739 kg Gen: NAD in chair Heart: RRR Lung: decreased breath sounds at the bases Abd: soft, nontender Ext: + edema CBC, BMP 03/19/19 05:30 03/19/19 05:30 Active Medications Atorvastatin Calcium (Lipitor -) 40 mg PO HS [facility] Last Admin: 03/18/19 21:47 Dose: Not Given Chlorhexidine Gluconate (Hibiclens For Decolonization -) 1 applic TP HS [facility] Last Admin: 03/18/19 21:46 Dose: 1 applic Donepezil HCl (Aricept -) 10 mg PO [facility] Last Admin: 03/18/19 21:46 Dose: Not Given Pantoprazole Sodium 80 mg/ (Sodium Chloride) 100 mls @ 10 mls/hr IVPB Q10H [facility] Last Admin: 03/19/19 04:43 Dose: Not Given Metoprolol Tartrate (Lopressor -) 25 mg PO BID [facility] Last Admin: 03/19/19 11:54 Dose: Not Given Mupirocin (Bactroban Ointment (For Decolonization) -) 1 applic NS BID [facility] Stop: 03/22/19 21:59 Last Admin: 03/19/19 11:58 Dose: 1 applic Nystatin (Mycostatin Cream -) 1 applic TP BID [facility] Last Admin: 03/19/19 11:58 Dose: 1 applic Ondansetron HCl (Zofran Injection) 4 mg IVPB Q8H PRN PRN Reason: NAUSEA Last Admin: 03/16/19 09:05 Dose: 4 mg Memantine Hcl Er (14mg Cap_Pt Own Med) 0 each PO DAILY [facility] Last Admin: 03/19/19 11:56 Dose: 1 each ASSESSMENT AND PLAN: GI Bleed Duodenal Ulcer Acute Blood Loss Anemia Pneumonia LV Diastolic Dysfunction Acute Kidney Injury HTN Hyperlipidemia Lung Nodules Smoker - monitor H/H - transfuse as needed - protonix - holding anticoagulation - PO per GI - completed antibiotics - can monitor on floor
[2019-03-19 13:03] VITALS: BMI 39.4
--- NOTE | 2019-03-19 13:52 | PROC ---
Procedure Note Procedure: central line placed in R internal jugular vein. Sterile procedure followed, ultrasound used to guide placement. Blood expression not pulsatile. Catheter placed over guide wire. Blood drawn back from each of the lines. Patient tolerated procedure. O 2 saturation after procedure 96%, heart rate 75. Xray will be taken to view placement. Will follow up as needed. Central Line Insertion Indication: Poor Venous Access Central Line: Triple Lumen Catheter Anesthesia: 1% Lidocaine Sterile Technique: Yes Ultrasound Guided Assistance: Yes Position: Right Internal Jugular Post Insertion: Yes: Chest X-Ray Ordered Sterile Dressing Applied: Yes
--- NOTE | 2019-03-19 15:41 | PN.GI ---
GI Progress Note Subjective: No BM today Denies abdominal pain Daughter present at bedside - Objective Vital Signs: Vital Signs Temperature 97.5 F L 03/19/19 14:00 Pulse Rate 60 03/19/19 14:00 Respiratory Rate 18 03/19/19 14:00 Blood Pressure 122/45 L 03/19/19 14:00 O2 Sat by Pulse Oximetry (%) 93 L 03/19/19 08:43 Constitutional: Calm Eyes: No: Sclera Icterus Cardiovascular: Yes: Regular Rate and Rhythm, Murmur (2/6 systolic murmur) Respiratory: Yes: Diminished (at bases b/l with poor insp effort) Gastrointestinal Inspection: No: Distention ...Auscultate: Yes: Normoactive Bowel Sounds Edema: No (No LE edema) Neurological: Yes: Alert Labs: CBC, BMP 03/19/19 05:30 03/19/19 05:30 INR, PTT INR 1.16 (0.83-1.09) H 03/10/19 21:35 Laboratory Tests 03/14/19 03/15/19 03/16/19 06:35 07:15 07:00 Hgb 8.7 L BUN 67 H 89 H 03/16/19 03/17/19 03/17/19 07:00 08:00 08:00 Hgb 7.4 L BUN 115 H* 131 H* 03/18/19 03/18/19 03/19/19 05:30 05:30 05:30 Hgb 9.4 L 10.0 L BUN 101 H 03/19/19 05:30 Hgb BUN 68 H Problem List - Problems (1) GI bleed Assessment/Plan: No overt bleeding Stable H/H Advise: continue clears PPI drip x 48 hours. Monitor Mg while on PPI Monitor H/H and for signs of active GI bleeding Code(s): K92.2 - GASTROINTESTINAL HEMORRHAGE, UNSPECIFIED
[2019-03-19] MEDS ORDERED: ALBUTEROL SO4 0.083% IH SOL 2.5 MG/3 ML VIAL.NEB. NEB ONE (21:35)
[2019-03-19] MEDS: DONEPEZIL HCL 10 MG TABLET (FP) PO SCH (21:44)
[2019-03-19] MEDS: ATORVASTATIN CA 40 MG TABLET (FP) PO SCH (21:44)
[2019-03-19] MEDS: CHLORHEXIDINE GLUCONATE 4% CLEANSER FOR DECOLONIZATION TP SCH (21:45)
[2019-03-19] MEDS ORDERED: ONDANSETRON 4 MG/2 ML VIAL IVPB PRN (22:37)
[2019-03-19] MEDS ORDERED: LORazepam 2 MG/ML SDV VIAL IVPUSH ONE (23:00)
[2019-03-20] MEDS: PANTOPRAZOLE SODIUM 80 MG in SODIUM CHLORIDE 100 ML IVPB SCH ×2 (08:42→17:12)
[2019-03-20 08:49] LABS: HEMATOCRIT 29.6 % (32.4-45.2); MCH 29.4 pg (25.7-33.7); MCHC 33.6 g/dl (32.0-36.0); MEAN CELL VOLUME 87.7 fl (80-96); MEAN PLT VOLUME 7.7 fl (7.5-11.1); PLATELET COUNT 187 K/MM3 (134-434); RBC 3.38 M/mm3 (3.60-5.2); RDW 15.6 % (11.6-15.6); WHITE BLOOD COUNT 25.8 K/mm3 (4.0-10.0)
[2019-03-20 09:23] LABS: ALK PHOS 51 U/L (45-117); ANION GAP 4 MMOL/L (8-16); BILIRUBIN,TOTAL 0.6 mg/dL (0.2-1); BLOOD UREA NITROGEN 45 mg/dL (7-18); CALCIUM 8.6 mg/dL (8.5-10.1); CHLORIDE 105 mmol/L (98-107); CO2 29 mmol/L (21-32); GLUCOSE,RANDOM 97 mg/dL (74-106); MAGNESIUM 2.3 mg/dL (1.8-2.4); PHOSPHOROUS 2.4 mg/dL (2.5-4.9); POTASSIUM 3.7 mmol/L (3.5-5.1); SGOT/AST 27 U/L (15-37); SGPT/ALT 30 U/L (13-61); SODIUM 138 mmol/L (136-145); TOT PROT 4.8 g/dl (6.4-8.2)
[2019-03-20] MEDS ORDERED: MUPIROCIN 2% TOPICAL OINTMENT FOR DECOLONIZATION NS SCH (10:00)
[2019-03-20] MEDS: NYSTATIN 100,000 UNIT/GM TOPICAL CREAM 15 GM TUBE TP SCH ×2 (11:41→21:24)
[2019-03-20] MEDS: METOPROLOL TARTRATE 25 MG TABLET (FP) PO SCH ×2 (11:43→21:24)
[2019-03-20] MEDS: NAMENDA 14 MG PO SCH (11:43)
--- NOTE | 2019-03-20 11:46 | PN ---
Progress Note, Physician Chief Complaint: Pneumonia Renal insufficiency Abdominal Pain History of Present Illness: Daughter at bedside feels weaker today Extremely thirsty C/o pain in her mouth and tongue BLUE ecchymosis and edema 2/2 to poor IV access Has R TLC On protonix drip H/H stable - Current Medication List Current Medications: Active Medications Atorvastatin Calcium (Lipitor -) 40 mg PO HS [facility] Donepezil HCl (Aricept -) 10 mg PO HS [facility] Pantoprazole Sodium 80 mg/ (Sodium Chloride) 100 mls @ 10 mls/hr IVPB Q10H [facility] Last Admin: 03/20/19 08:42 Dose: 10 mls/hr Metoprolol Tartrate (Lopressor -) 25 mg PO BID [facility] Last Admin: 03/20/19 11:43 Dose: 25 mg Nystatin (Mycostatin Cream -) 1 applic TP BID [facility] Last Admin: 03/20/19 11:41 Dose: 1 applic Ondansetron HCl (Zofran Injection) 4 mg IVPB Q8H PRN PRN Reason: NAUSEA Pt Own Med(Namenda (Er 14 Mg) 1 each PO DAILY [facility] Last Admin: 03/20/19 11:43 Dose: 1 each - Objective Vital Signs: Vital Signs Temperature 99 F 03/20/19 10:00 Pulse Rate 107 H 03/20/19 10:00 Respiratory Rate 18 03/20/19 10:00 Blood Pressure 119/58 L 03/20/19 10:00 O2 Sat by Pulse Oximetry (%) 94 L 03/19/19 23:00 Constitutional: Yes: Well Nourished, No Distress, Obese, Other (weak appearing) Cardiovascular: Yes: Regular Rate and Rhythm Respiratory: Yes: Regular Gastrointestinal: Yes: Normal Bowel Sounds, Soft Genitourinary: Yes: WNL Musculoskeletal: Yes: Muscle Weakness Extremities: Yes: WNL Neurological: Yes: Alert, Pre-Existing Deficit Psychiatric: Yes: Alert Labs: CBC, BMP 03/20/19 08:30 03/20/19 08:30 INR, PTT INR 1.16 (0.83-1.09) H 03/10/19 21:35 Problem List - Problems (1) Leukocytosis Assessment/Plan: -WBC on 02/28/19 in the office was 6.9 -Consistently elevated here -Hematology/Oncology consult Code(s): D72.829 - ELEVATED WHITE BLOOD CELL COUNT, UNSPECIFIED Assessment/Plan 1) ANI (acute kidney injury) Assessment/Plan: -BUN/Cr 131/1.8 -2/2 to GI bleed -renal on board -monitor renal function daily -Urology on board after hydronephrosis noted on Renal US Code(s): N17.9 - ACUTE KIDNEY FAILURE, UNSPECIFIED (2) Elevated troponin Assessment/Plan: -troponin 0.03 -cardiology on board Code(s): R74.8 - ABNORMAL LEVELS OF OTHER SERUM ENZYMES (3) Hyponatremia Assessment/Plan: -resolved -Na 136 -monitor electrolyte and replete as needed Code(s): E87.1 - HYPO-OSMOLALITY AND HYPONATREMIA (4) Paroxysmal A-fib Assessment/Plan: -continue Metoprolol -Eliquis on hold -holter monitor results reviewed Code(s): I48.0 - PAROXYSMAL ATRIAL FIBRILLATION (5) Pneumonia Assessment/Plan: -Pulm and ID on board -WBC 36.5 -leukocytosis -afebrile -continue IV Ceftriaxone and Doxycycline -IV Medrol -repeat CXR results reviewed -repeat BC ordered Code(s): J18.9 - PNEUMONIA, UNSPECIFIED ORGANISM (6) Anemia Assessment/Plan: -Hg 7.4 -patient to receive 2U PRBC transfusion--will get lasix 40mg IVP after second unit to avoid overload -1U FFP -Pantoprazole drip -GI on board -NPO except for medication -Eliquis on hold until UGIB ruled out -tele monitoring -patient will have endoscopy Monday morning -spoke with patient HCP Geovanna Marques and received consent for transfusion via phone with RN as witness Code(s): D64.9 - ANEMIA, UNSPECIFIED
--- NOTE | 2019-03-20 12:21 | PN ---
Progress Note, Physician History of Present Illness: pulmonary alert,no distress,dyspnea,-tachypnea - Current Medication List Current Medications: Active Medications Atorvastatin Calcium (Lipitor -) 40 mg PO HS [facility] Donepezil HCl (Aricept -) 10 mg PO HS [facility]S [facility] Pantoprazole Sodium 80 mg/ (Sodium Chloride) 100 mls @ 10 mls/hr IVPB Q10H [facility] Last Admin: 03/20/19 08:42 Dose: 10 mls/hr Metoprolol Tartrate (Lopressor -) 25 mg PO BID [facility] Last Admin: 03/20/19 11:43 Dose: 25 mg Nystatin (Mycostatin Cream -) 1 applic TP BID [facility] Last Admin: 03/20/19 11:41 Dose: 1 applic Ondansetron HCl (Zofran Injection) 4 mg IVPB Q8H PRN PRN Reason: NAUSEA Pt Own Med(Namenda (Er 14 Mg) 1 each PO DAILY [facility] Last Admin: 03/20/19 11:43 Dose: 1 each - Objective Vital Signs: Vital Signs Temperature 99 F 03/20/19 10:00 Pulse Rate 107 H 03/20/19 10:00 Respiratory Rate 18 03/20/19 10:00 Blood Pressure 119/58 L 03/20/19 10:00 O2 Sat by Pulse Oximetry (%) 94 L 03/19/19 23:00 Constitutional: Yes: Well Nourished, Calm Eyes: Yes: WNL HENT: Yes: WNL Neck: Yes: WNL Cardiovascular: Yes: Regular Rate and Rhythm, S1, S2 Respiratory: Yes: CTA Bilaterally Gastrointestinal: Yes: Normal Bowel Sounds, Soft Extremities: Yes: WNL Edema: No Labs: CBC, BMP 03/20/19 08:30 03/20/19 08:30 INR, PTT INR 1.16 (0.83-1.09) H 03/10/19 21:35 Problem List - Problems (1) Acute respiratory failure with hypoxia and hypercapnia Code(s): J96.01 - ACUTE RESPIRATORY FAILURE WITH HYPOXIA; J96.02 - ACUTE RESPIRATORY FAILURE WITH HYPERCAPNIA (2) ANI (acute kidney injury) Code(s): N17.9 - ACUTE KIDNEY FAILURE, UNSPECIFIED (3) Elevated troponin Code(s): R74.8 - ABNORMAL LEVELS OF OTHER SERUM ENZYMES (4) Hyponatremia Code(s): E87.1 - HYPO-OSMOLALITY AND HYPONATREMIA (5) Pneumonia Code(s): J18.9 - PNEUMONIA, UNSPECIFIED ORGANISM Assessment/Plan ASSESSMENT AND PLAN: GI Bleed stable Duodenal Ulcer Acute Blood Loss Anemia Pneumonia LV Diastolic Dysfunction Acute Kidney Injury improving HTN Hyperlipidemia Lung Nodules Smoker - monitor H/H - transfuse as needed - protonix - holding anticoagulation - PO per GI DR MOROCHO
--- NOTE | 2019-03-20 15:41 | PN ---
Progress Note (short form) - Note Progress Note: Patient seen and examined Consult dictated 88 year old presents with leucocytosis, bilateral pulmonary infiltrates, GI bleeding secondary to duodenal ulcer disease which required transfusions. Has previously on 02/28/19 had WBC of 6000 suggesting current WBC count is all REACTIVE. To review peripheral smear.
--- NOTE | 2019-03-20 15:52 | CONS ---
DATE OF CONSULTATION: 03/20/2019 HISTORY OF PRESENT ILLNESS: This is an 88-year-old female being seen for evaluation of leukocytosis. She initially presented with a cough, bilateral infiltrates. There is a history of hypertension, hyperlipidemia, and diastolic CHF. The patient is a smoker. The patient has some degree of dementia. History is unobtainable from the patient. The patient prior to admission upon review revealed the fact that the patient had a normal white count of 6000 on February 28, 2018. Current white counts have been elevated in the hospital. ALLERGIES: No known allergies. AMBULATORY MEDICINES: Have included amlodipine, aspirin, atorvastatin, B12, donepezil, Lexapro, folate, Lasix, Namenda, metoprolol, and potassium. REVIEW OF SYSTEMS: The patient denies significant headaches, diplopia, epistaxis, dysphagia. Has some shortness of breath. Has cough. Cigarette smoker. No chest pain. No nausea, vomiting, diarrhea, constipation. No dysuria. No significant musculoskeletal symptoms. CURRENT MEDICINES: Have included Namenda, Zofran, Lopressor, Lipitor, magic mouthwash, Aricept, nystatin, Protonix. CURRENT PHYSICAL: Vital Signs: BP 119/58, pulse 107, temp 99, respiratory rate 18-20. HEENT: PERRLA. EOM intact. Oropharynx: Upper and lower dentures. Tongue papillated. Lungs: There are chronic rhonchi bilaterally. Cardiac: Regular rhythm. Breasts: No dominant masses. Patient has not had a recent mammogram. Abdomen: Obese. No definite organomegaly. Extremities: Lower extremity edema 1+. LABORATORY: On admission, 25.7 white count, currently 25.8, maximum 36. Hematocrit on admission 33. The patient did have a GI bleed. Found to have a duodenal ulcer and required transfusion of packed cells. Current hematocrit 29.6, platelet 187,000 on admission, 407,000 with relatively normal differential with increase of neutrophils. Chest CT reveals bilateral infiltrates and pulmonary nodules. Also, there is hydronephrosis. Hospital course complicated by pneumonia and antibiotic therapy, steroid therapy, GI bleeding with endoscopy revealing ulcer disease. IMPRESSION: Current picture reveals an 88-year-old female who previously on February 28 had a normal white count. Presents with bilateral infiltrates, pneumonitis, some degree of hypoxia from infection, as well as chronic obstructive pulmonary disease, and smoking, has had steroids, has had gastrointestinal bleeding; all of which can give a leukocytosis. Suspect, in view of normal white count several weeks ago, that this is all reactive. Will review peripheral smear. I thank you. BRENT CALHOUN M.D. [id number]
[2019-03-20] MEDS: MAG HYDROX/ALH/SMC/DPHA/LIDO 240 ML MOUTHWASH MM SCH ×2 (17:12→23:04)
--- NOTE | 2019-03-20 17:30 | PN.GI ---
GI Progress Note Subjective: pt is stable one BM last night dark soft stool had sift lunch today with no problems denies any abdominal pain , N/V - Objective Vital Signs: Vital Signs Temperature 99 F 03/20/19 10:00 Pulse Rate 107 H 03/20/19 10:00 Respiratory Rate 18 03/20/19 10:00 Blood Pressure 119/58 L 03/20/19 10:00 O2 Sat by Pulse Oximetry (%) 99 03/20/19 09:00 Constitutional: Well Nourished, No Distress Eyes: Yes: Conjunctiva Clear HENT: Yes: Atraumatic, Normocephalic Neck: Yes: Supple Cardiovascular: Yes: Tachycardia Respiratory: Yes: CTA Bilaterally, On Nasal O2. No: Accessory Muscle Use ...Auscultate: Yes: Normoactive Bowel Sounds ...Palpate: No: Guarding, Tenderness, Epigastium ...Percussion: Yes: Tympanitic ...Rectal Exam: Yes: Deferred Neurological: Yes: Alert Labs: CBC, [facility] 03/20/19 08:30 03/20/19 08:30 INR, PTT INR 1.16 (0.83-1.09) H 03/10/19 21:35 <Aneudy Singh - Last Filed: 03/20/19 17:37> - Objective Vital Signs: Vital Signs Temperature 99 F 03/20/19 10:00 Pulse Rate 107 H 03/20/19 10:00 Respiratory Rate 18 03/20/19 10:00 Blood Pressure 119/58 L 03/20/19 10:00 O2 Sat by Pulse Oximetry (%) 99 03/20/19 09:00 Labs: CBC, [facility] 03/20/19 08:30 03/20/19 08:30 INR, PTT INR 1.16 (0.83-1.09) H 03/10/19 21:35 <Letty Torres - Last Filed: 03/20/19 17:56> Assessment/Plan # GI bleed 2/2 duodenal ulcer * no active bleeding * H/H is stable * on PPI drip till tomorrow then switch to po * monitor lytes * monitor mg while on PPI * soft diet * one BM last night dark soft stool * denies any abdominal pain, N/V * rest per primary team <Aneudy Singh - Last Filed: 03/20/19 17:37> Pt seen/examined with Dr. Singh, agree with above assessment and plan. EGD performed on 03/18 revealing blood in the duodenum with a 7-8mm duodenal bulb ulcer with red spots and oozing s/p epi and clips. Another small clean based ulcer and gastric erosions with small clean based ulcer. See scanned report for details.r. Recommendations: -Continue to monitor Hb and for evidence of bleeding -Change to PPI po daily tomorrow if stable Hb and no furtherb leeding -Could resume antithrombotics if Hb remains stable and if clinically indicated per primary team, as risks/benefits need to be heavily weighed as this would place pt at increased risk of bleeding. If deemend necessary recommend continue PPI therapy indefinitely. -Check H pylori stool Ag -Avoid nonessential NSAIDs -If further overt bleeding or drop in Hb please notify GI. <Letty Torres - Last Filed: 03/20/19 17:56> Problem List - Problems (1) Duodenal ulcer Code(s): K26.9 - DUODENAL ULCER, UNSP ACUTE OR CHRONIC, W/O HEMOR OR PERF (2) GI bleed Code(s): K92.2 - GASTROINTESTINAL HEMORRHAGE, UNSPECIFIED <Aneudy Singh - Last Filed: 03/20/19 17:37>
[2019-03-20] MEDS ORDERED: ALBUTEROL SO4 0.083% IH SOL 2.5 MG/3 ML VIAL.NEB. NEB ONE (21:00)
[2019-03-20] MEDS: DONEPEZIL HCL 10 MG TABLET (FP) PO SCH (21:24)
[2019-03-20] MEDS: HALOPERIDOL LACTATE 5 MG/ML IM PRN (21:24)
[2019-03-20] MEDS: ATORVASTATIN CA 40 MG TABLET (FP) PO SCH (21:24)
[2019-03-20] MEDS ORDERED: LORazepam 2 MG/ML SDV VIAL IVPUSH ONE (23:26)
[2019-03-21] MEDS: PANTOPRAZOLE SODIUM 80 MG in SODIUM CHLORIDE 100 ML IVPB SCH ×2 (02:32→04:32)
[2019-03-21] MEDS: HALOPERIDOL LACTATE 5 MG/ML IM PRN ×3 (04:34→21:38)
[2019-03-21] MEDS: MAG HYDROX/ALH/SMC/DPHA/LIDO 240 ML MOUTHWASH MM SCH ×3 (05:09→17:23)
[2019-03-21 07:39] LABS: BASO % 0.3 % (0-2.0); EOS % 0.9 % (0-4.5); HEMATOCRIT 29.3 % (32.4-45.2); HEMOGLOBIN 9.7 GM/dL (10.7-15.3); LYMPH % 5.2 % (8-40); MCH 29.1 pg (25.7-33.7); MEAN CELL VOLUME 88.1 fl (80-96); MEAN PLT VOLUME 8.4 fl (7.5-11.1); MONO % 6.5 % (3.8-10.2); NEUT % 87.1 % (42.8-82.8); PLATELET COUNT 148 K/MM3 (134-434); RBC 3.32 M/mm3 (3.60-5.2); RDW 15.7 % (11.6-15.6); WHITE BLOOD COUNT 22.8 K/mm3 (4.0-10.0)
[2019-03-21 07:59] LABS: ALBUMIN 2.1 g/dl (3.4-5.0); ALK PHOS 58 U/L (45-117); ANION GAP 7 MMOL/L (8-16); BILIRUBIN,TOTAL 1.2 mg/dL (0.2-1); BLOOD UREA NITROGEN 35 mg/dL (7-18); CHLORIDE 99 mmol/L (98-107); CO2 28 mmol/L (21-32); CREATININE 1.1 mg/dL (0.55-1.3); GLUCOSE,RANDOM 97 mg/dL (74-106); POTASSIUM 3.7 mmol/L (3.5-5.1); SGOT/AST 29 U/L (15-37); SGPT/ALT 29 U/L (13-61); SODIUM 134 mmol/L (136-145); TOT PROT 4.9 g/dl (6.4-8.2)
[2019-03-21] MEDS: NYSTATIN 100,000 UNIT/GM TOPICAL CREAM 15 GM TUBE TP SCH ×2 (09:34→21:39)
[2019-03-21] MEDS: METOPROLOL TARTRATE 25 MG TABLET (FP) PO SCH ×2 (09:34→21:39)
[2019-03-21] MEDS: PANTOPRAZOLE 40 MG TABLET (FP) PO SCH (09:34)
[2019-03-21] MEDS ORDERED: PT OWN MED DRAWER 7, Y5N ONE (09:36)
[2019-03-21] MEDS: NAMENDA 14 MG PO SCH (09:37)
--- NOTE | 2019-03-21 11:04 | PN ---
Progress Note, Physician Chief Complaint: PNA Renal Insufficiency History of Present Illness: Previous notes and events reviewed awake and alert NAD leukocytosis noted but trending down afebrile Hg 9.7 patient confused - Current Medication List Current Medications: Active Medications Atorvastatin Calcium (Lipitor -) 40 mg PO HS [facility] Last Admin: 03/20/19 21:24 Dose: 40 mg Donepezil HCl (Aricept -) 10 mg PO HS [facility] Last Admin: 03/20/19 21:24 Dose: 10 mg Haloperidol (Haldol Injection (Fast Acting) -) 5 mg IM Q6H PRN PRN Reason: AGITATION Last Admin: 03/21/19 10:42 Dose: 5 mg Lidocaine/Aluminum/Magnesium/Simeth (Magic Mouthwash *Sjr Formula* -) 5 ml MM Q6HPO [facility] Last Admin: 03/21/19 05:09 Dose: 5 ml Metoprolol Tartrate (Lopressor -) 25 mg PO BID [facility] Last Admin: 03/21/19 09:34 Dose: 25 mg Nystatin (Mycostatin Cream -) 1 applic TP BID [facility] Last Admin: 03/21/19 09:34 Dose: 1 applic Ondansetron HCl (Zofran Injection) 4 mg IVPB Q8H PRN PRN Reason: NAUSEA Pantoprazole Sodium (Protonix -) 40 mg PO DAILY [facility] Last Admin: 03/21/19 09:34 Dose: 40 mg Pt Own Med(Namenda (Er 14 Mg) 1 each PO DAILY [facility] Last Admin: 03/21/19 09:37 Dose: 1 each - Objective Vital Signs: Vital Signs Temperature 97.9 F 03/21/19 10:00 Pulse Rate 102 H 03/21/19 10:00 Respiratory Rate 22 H 03/21/19 10:00 Blood Pressure 143/87 03/21/19 10:00 O2 Sat by Pulse Oximetry (%) 96 03/21/19 09:00 Constitutional: Yes: No Distress, Calm Eyes: Yes: Conjunctiva Clear HENT: Yes: Atraumatic Cardiovascular: Yes: Regular Rate and Rhythm Respiratory: Yes: Regular, Diminished Gastrointestinal: Yes: Normal Bowel Sounds, Soft, Abdomen, Obese Genitourinary: Yes: Incontinence Musculoskeletal: Yes: Muscle Weakness Extremities: Yes: WNL Edema: No Peripheral Pulses WNL: No Neurological: Yes: Alert, Pre-Existing Deficit Psychiatric: Yes: Alert Labs: CBC, BMP 03/21/19 07:00 03/21/19 07:00 INR, PTT INR 1.16 (0.83-1.09) H 03/10/19 21:35 Microbiology 03/16/19 16:00 Blood - Peripheral Venous Blood Culture - Preliminary NO GROWTH OBTAINED AFTER 96 HOURS, INCUBATION TO CONTINUE FOR 1 DAYS. 03/16/19 15:45 Blood - Peripheral Venous Blood Culture - Preliminary NO GROWTH OBTAINED AFTER 96 HOURS, INCUBATION TO CONTINUE FOR 1 DAYS. 03/18/19 02:20 Urine - Urine Crespo Urine Culture - Final NO GROWTH OBTAINED 03/10/19 21:35 Blood - Peripheral Venous Blood Culture - Final NO GROWTH AFTER 5 DAYS INCUBATION 03/10/19 21:35 Blood - Peripheral Venous Blood Culture - Final NO GROWTH AFTER 5 DAYS INCUBATION 03/12/19 14:05 Urine For Antigen Detection Legionella Antigen - Final 03/12/19 14:05 Urine For Antigen Detection Streptococcus pneumoniae Antigen (M - Final 03/11/19 09:41 Urine - Urine - Catheterized Urine Culture - Final NO GROWTH OBTAINED Problem List - Problems (1) ANI (acute kidney injury) Assessment/Plan: -BUN/Cr 35/1.1 -2/2 to GI bleed -renal on board -monitor renal function daily -Urology on board after hydronephrosis noted on Renal US Code(s): N17.9 - ACUTE KIDNEY FAILURE, UNSPECIFIED (2) Elevated troponin Assessment/Plan: -troponin 0.03 -cardiology on board Code(s): R74.8 - ABNORMAL LEVELS OF OTHER SERUM ENZYMES (3) Hyponatremia Assessment/Plan: -Na 134 -monitor electrolyte and replete as needed Code(s): E87.1 - HYPO-OSMOLALITY AND HYPONATREMIA (4) Paroxysmal A-fib Assessment/Plan: -continue Metoprolol -holter monitor results reviewed--no signs of Afib on holter monitor Code(s): I48.0 - PAROXYSMAL ATRIAL FIBRILLATION (5) Pneumonia Assessment/Plan: -Pulm and ID on board -WBC 22.8 -leukocytosis -afebrile -bronchodilators -repeat CXR results reviewed -repeat BC neg Code(s): J18.9 - PNEUMONIA, UNSPECIFIED ORGANISM (6) Anemia Assessment/Plan: -Hg 9.7 -Pantoprazole PO daily -GI on board -Endoscopy performed and GI notes reviewed Code(s): D64.9 - ANEMIA, UNSPECIFIED (7) Confusion Assessment/Plan: -neurology and psychology consult Code(s): R41.0 - DISORIENTATION, UNSPECIFIED Assessment/Plan see problem list dvt ppx
[2019-03-21 11:50] LABS: ANISOCYTOSIS 0; MACROCYTOSIS 0; OVALOCYTE 1+; PLATELET ESTIMATE DECREASED
[2019-03-21] MEDS: ACETAMINOPHEN 325 MG TABLET (FP) PO PRN (15:26)
--- NOTE | 2019-03-21 15:49 | PN ---
Progress Note, Physician History of Present Illness: pulmonary alert,no distress,-sob - Current Medication List Current Medications: Active Medications Acetaminophen (Tylenol -) 650 mg PO Q6H PRN PRN Reason: PAIN LEVEL 1-5 Last Admin: 03/21/19 15:26 Dose: 650 mg Atorvastatin Calcium (Lipitor -) 40 mg PO HS [facility] Last Admin: 03/20/19 21:24 Dose: 40 mg Donepezil HCl (Aricept -) 10 mg PO HS [facility] Last Admin: 03/20/19 21:24 Dose: 10 mg Haloperidol (Haldol Injection (Fast Acting) -) 5 mg IM Q6H PRN PRN Reason: AGITATION Last Admin: 03/21/19 10:42 Dose: 5 mg Lidocaine/Aluminum/Magnesium/Simeth (Magic Mouthwash *Sjr Formula* -) 5 ml MM Q6HPO [facility] Last Admin: 03/21/19 11:24 Dose: 5 ml Metoprolol Tartrate (Lopressor -) 25 mg PO BID [facility] Last Admin: 03/21/19 09:34 Dose: 25 mg Nystatin (Mycostatin Cream -) 1 applic TP BID [facility] Last Admin: 03/21/19 09:34 Dose: 1 applic Ondansetron HCl (Zofran Injection) 4 mg IVPB Q8H PRN PRN Reason: NAUSEA Pantoprazole Sodium (Protonix -) 40 mg PO DAILY [facility] Last Admin: 03/21/19 09:34 Dose: 40 mg Pt Own Med(Namenda (Er 14 Mg) 1 each PO DAILY [facility] Last Admin: 03/21/19 09:37 Dose: 1 each - Objective Vital Signs: Vital Signs Temperature 98.4 F 03/21/19 15:14 Pulse Rate 64 03/21/19 15:14 Respiratory Rate 20 03/21/19 15:14 Blood Pressure 139/62 03/21/19 15:14 O2 Sat by Pulse Oximetry (%) 96 03/21/19 09:00 Constitutional: Yes: Well Nourished, Calm Eyes: Yes: WNL HENT: Yes: WNL Neck: Yes: WNL Cardiovascular: Yes: Pulse Irregular, S1, S2 Respiratory: Yes: Diminished Gastrointestinal: Yes: Normal Bowel Sounds, Soft Extremities: Yes: WNL Edema: No Labs: CBC, BMP 03/21/19 07:00 03/21/19 07:00 INR, PTT INR 1.16 (0.83-1.09) H 03/10/19 21:35 Problem List - Problems (1) Acute respiratory failure with hypoxia and hypercapnia Code(s): J96.01 - ACUTE RESPIRATORY FAILURE WITH HYPOXIA; J96.02 - ACUTE RESPIRATORY FAILURE WITH HYPERCAPNIA (2) ANI (acute kidney injury) Code(s): N17.9 - ACUTE KIDNEY FAILURE, UNSPECIFIED (3) Elevated troponin Code(s): R74.8 - ABNORMAL LEVELS OF OTHER SERUM ENZYMES (4) Hyponatremia Code(s): E87.1 - HYPO-OSMOLALITY AND HYPONATREMIA (5) Pneumonia Code(s): J18.9 - PNEUMONIA, UNSPECIFIED ORGANISM Assessment/Plan ASSESSMENT AND PLAN: GI Bleed stable Duodenal Ulcer Acute Blood Loss Anemia Pneumonia LV Diastolic Dysfunction Acute Kidney Injury improving HTN Hyperlipidemia Lung Nodules Smoker - monitor H/H - transfuse as needed - protonix - holding anticoagulation DR MOROCHO
--- NOTE | 2019-03-21 16:30 | PN.GI ---
GI Progress Note Subjective: No acute events No bleeding per nurse No diarrhea - Objective Vital Signs: Vital Signs Temperature 98.4 F 03/21/19 15:14 Pulse Rate 64 03/21/19 15:14 Respiratory Rate 20 03/21/19 15:14 Blood Pressure 139/62 03/21/19 15:14 O2 Sat by Pulse Oximetry (%) 96 03/21/19 09:00 Constitutional: Calm Eyes: No: Sclera Icterus Cardiovascular: Yes: Regular Rate and Rhythm Respiratory: Yes: Diminished (bases, poor effort) Gastrointestinal Inspection: No: Distention, Scars ...Auscultate: Yes: Normoactive Bowel Sounds ...Palpate: No: Tenderness Extremities: Yes: Other (ecchymosis right arm) Edema: Yes Edema: LLE: 2+, RLE: 2+ Neurological: Yes: Alert Labs: CBC, BMP 03/21/19 07:00 03/21/19 07:00 INR, PTT INR 1.16 (0.83-1.09) H 03/10/19 21:35 Hepatic Panel Total Bilirubin 1.2 mg/dL (0.2-1) H 03/21/19 07:00 AST 29 U/L (15-37) 03/21/19 07:00 ALT 29 U/L (13-61) 03/21/19 07:00 Alkaline Phosphatase 58 U/L (45-117) 03/21/19 07:00 Albumin 2.1 g/dl (3.4-5.0) L 03/21/19 07:00 Problem List - Problems (1) GI bleed Assessment/Plan: No overt bleeding Duodenal ulcer noted on EGD Continue Protonix 40mg daily Avoid NSAIDs Recall as needed Code(s): K92.2 - GASTROINTESTINAL HEMORRHAGE, UNSPECIFIED
[2019-03-21] MEDS: DONEPEZIL HCL 10 MG TABLET (FP) PO SCH (21:53)
[2019-03-21] MEDS: ATORVASTATIN CA 40 MG TABLET (FP) PO SCH (21:53)
[2019-03-21] MEDS: MELATONIN 5 MG TABLETS PO PRN (22:51)
[2019-03-22] MEDS: MAG HYDROX/ALH/SMC/DPHA/LIDO 240 ML MOUTHWASH MM SCH ×4 (01:10→17:05)
[2019-03-22 08:27] LABS: HEMATOCRIT 28.6 % (32.4-45.2); HEMOGLOBIN 9.4 GM/dL (10.7-15.3); MCH 29.6 pg (25.7-33.7); MCHC 32.8 g/dl (32.0-36.0); MEAN CELL VOLUME 90.1 fl (80-96); MEAN PLT VOLUME 8.4 fl (7.5-11.1); PLATELET COUNT 120 K/MM3 (134-434); RBC 3.17 M/mm3 (3.60-5.2); RDW 15.7 % (11.6-15.6)
--- NOTE | 2019-03-22 08:48 | CONSULT ---
Consult - text type - Consultation Consultation Note: Neurology CHIEF COMPLAINT: cough, sob HISTORY OF PRESENT ILLNESS: 88 y/o F, smoker, brought in by daughter for generalized weakness, cough, sob for one day. According to notes, daughter who lives alone with the patient, the mother is usually moderately lethargic but still functional. On day of admission the patient was more "out-of-it" than usual and "couldn't even raise a glass of water to drink". Daughter stated that she feels the patient's generalized health been getting worse for the past two weeks after she received her pneumococcal vaccine. In ER, she was started on Abx. Psych consulted, note reviewed. I was consulted for increased confusion. Patient did not have imaging of her head and therefore I will check CT head. Patient is awake and alert this AM. She is able to tell me she's in [place], at [facility]. She did have trouble with the date but was able to maintain conversation and was trying to get from bed to chair which requires assistance. Rolling walker at bedside. Medically, multiple possibly etiologies to her confusion. Underlying PNA, hyponatremia, ANI, and Anemia can also lead to AMS in isolation and certainly in conjunction. Primary team actively addressing all of these. Recent Travel:no PAST MEDICAL HISTORY:HTN, HLD, CHF and dementia PAST SURGICAL HISTORY: None Social History: Smoking: yes Alcohol: no Drugs: no Family History: HTN Allergies No Known Allergies Allergy (Verified 03/10/19 21:52) HOME MEDICATIONS: Home Medications Medication Instructions Recorded Ibuprofen [Motrin -] 400 mg PO TID #21 tablet 12/11/14 Olmesartan/Amlodipin/Hcthiazid 1 each PO 12/11/14 [Tribenzor 20-5-12.5 mg Tablet] REVIEW OF SYSTEMS- No dizzyness, no headache, no visual difficulty, +sob, no chest pain, no abdominal pain, some nausea, no vomiting, no pruritis, no rashes , no joint pain, +fatigue PHYSICAL EXAMINATION Vital Signs Period Temp Pulse Resp BP Sys/Angel Pulse Ox Last 24 Hr 97.7 F-98.4 F 64-102 - 116-150/59-87 96-97 GENERAL: Awake, alert, disoriented to time. Aware of place HEAD: Normal with no signs of trauma. EYES: Pupils equal, round and reactive to light, extraocular movements intact, sclera anicteric, conjunctiva clear. No lid lag. EARS, NOSE, THROAT: Ears normal, nares patent, oropharynx clear without exudates. Moist mucous membranes. NECK: Normal range of motion, supple without lymphadenopathy, JVD, or masses. LUNGS: bibasilar crackles on lung auscultation, HEART: Regular rate and rhythm, normal S1 and S2 without murmur, rub or gallop. ABDOMEN: Soft, nontender, not distended, normoactive bowel sounds, no guarding, no rebound, no masses. MUSCULOSKELETAL: Normal range of motion at all joints. No bony deformities or tenderness. UPPER EXTREMITIES: 2+ pulses, warm, well-perfused. No cyanosis. No clubbing. No peripheral edema. LOWER EXTREMITIES: 1+ pedal edema b/l NEUROLOGICAL: Cranial nerves II-XII intact. Normal speech. Moves all extremities equally, sensory intact, gait deferred PSYCHIATRIC: Cooperative. Good eye contact. Appropriate mood and affect. SKIN: Warm, dry, normal turgor, no rashes or lesions noted, normal capillary refill. CBCD WBC 17.0 K/mm3 (4.0-10.0) H 03/22/19 06:00 RBC 3.17 M/mm3 (3.60-5.2) L 03/22/19 06:00 Hgb 9.4 GM/dL (10.7-15.3) L 03/22/19 06:00 Hct 28.6 % (32.4-45.2) L 03/22/19 06:00 MCV 90.1 fl (80-96) 03/22/19 06:00 MCHC 32.8 g/dl (32.0-36.0) 03/22/19 06:00 RDW 15.7 % (11.6-15.6) H 03/22/19 06:00 Plt Count 120 K/MM3 (134-434) L 03/22/19 06:00 MPV 8.4 fl (7.5-11.1) 03/22/19 06:00 CMP Sodium 134 mmol/L (136-145) L 03/21/19 07:00 Potassium 3.7 mmol/L (3.5-5.1) 03/21/19 07:00 Chloride 99 mmol/L (98-107) 03/21/19 07:00 Carbon Dioxide 28 mmol/L (21-32) 03/21/19 07:00 Anion Gap 7 MMOL/L (8-16) L 03/21/19 07:00 BUN 35 mg/dL (7-18) H 03/21/19 07:00 Creatinine 1.1 mg/dL (0.55-1.3) 03/21/19 07:00 Creat Clearance w eGFR 46.98 (>60) 03/21/19 07:00 Random Glucose 97 mg/dL (74-106) 03/21/19 07:00 Calcium 8.0 mg/dL (8.5-10.1) L 03/21/19 07:00 Total Bilirubin 1.2 mg/dL (0.2-1) H 03/21/19 07:00 AST 29 U/L (15-37) 03/21/19 07:00 ALT 29 U/L (13-61) 03/21/19 07:00 Alkaline Phosphatase 58 U/L (45-117) 03/21/19 07:00 Total Protein 4.9 g/dl (6.4-8.2) L 03/21/19 07:00 Albumin 2.1 g/dl (3.4-5.0) L 03/21/19 07:00 CARDIAC ENZYMES Creatine Kinase 108 U/L (26-192) 03/12/19 07:08 Troponin I 0.03 ng/ml (0.00-0.05) 03/12/19 07:08 ASSESSMENT/PLAN: 88 y/o F, smoker, brought in by daughter for generalized weakness, cough, sob for one day. I was consulted for increased confusion. Patient did not have imaging of her head and therefore I will check CT head. Patient is awake and alert this AM. She is able to tell me she's in [place], at [facility]. She did have trouble with the date but was able to maintain conversation and was trying to get from bed to chair which requires assistance. Rolling walker at bedside. Medically, multiple possibly etiologies to her confusion. Underlying PNA, hyponatremia, ANI, and Anemia can also lead to AMS in isolation and certainly in conjunction. Primary team actively addressing all of these. Abx for PNA as per primary, bronchodilators as needed. Continue optimization of Na, improving and within normal range. Follow up Bun/Cr, renal follow up. Urology to continue mgmt regarding hydronephrosis on renal US. Follow up H/H, GI on board and managing. Mental status seems improved and will confirm no structural lesions on CT. Expect continued improvement as above factors stabilize.
[2019-03-22 09:02] LABS: ALBUMIN 2.1 g/dl (3.4-5.0); ALK PHOS 60 U/L (45-117); ANION GAP 6 MMOL/L (8-16); BILIRUBIN,TOTAL 0.9 mg/dL (0.2-1); BLOOD UREA NITROGEN 27 mg/dL (7-18); CALCIUM 8.5 mg/dL (8.5-10.1); CHLORIDE 106 mmol/L (98-107); CO2 29 mmol/L (21-32); GLUCOSE,RANDOM 87 mg/dL (74-106); POTASSIUM 3.7 mmol/L (3.5-5.1); SGOT/AST 34 U/L (15-37); SGPT/ALT 30 U/L (13-61); SODIUM 142 mmol/L (136-145)
[2019-03-22] MEDS: METOPROLOL TARTRATE 25 MG TABLET (FP) PO SCH ×2 (09:40→22:46)
[2019-03-22] MEDS: PANTOPRAZOLE 40 MG TABLET (FP) PO SCH (09:40)
[2019-03-22] MEDS: NAMENDA 14 MG PO SCH (09:41)
[2019-03-22] MEDS: NYSTATIN 100,000 UNIT/GM TOPICAL CREAM 15 GM TUBE TP SCH ×2 (09:41→22:53)
[2019-03-22] MEDS ORDERED: PT OWN MED DRAWER 7, Y5N ONE ×3 (09:52→23:49)
--- NOTE | 2019-03-22 12:37 | PN ---
Progress Note, Physician Chief Complaint: PNA Renal Insufficiency History of Present Illness: Previous notes and events reviewed awake and alert NAD leukocytosis noted but trending down afebrile Hg 9.7 ecchymosis RUE lower forearm - Current Medication List Current Medications: Active Medications Acetaminophen (Tylenol -) 650 mg PO Q6H PRN PRN Reason: PAIN LEVEL 1-5 Last Admin: 03/21/19 15:26 Dose: 650 mg Atorvastatin Calcium (Lipitor -) 40 mg PO HS [facility] Last Admin: 03/21/19 21:53 Dose: 40 mg Donepezil HCl (Aricept -) 10 mg PO HS [facility] Last Admin: 03/21/19 21:53 Dose: 10 mg Lidocaine/Aluminum/Magnesium/Simeth (Magic Mouthwash *Sjr Formula* -) 5 ml MM Q6HPO [facility] Last Admin: 03/22/19 11:19 Dose: 5 ml Melatonin (Melatonin) 5 mg PO HS PRN PRN Reason: INSOMNIA Last Admin: 03/21/19 22:51 Dose: 5 mg Metoprolol Tartrate (Lopressor -) 25 mg PO BID [facility] Last Admin: 03/22/19 09:40 Dose: 25 mg Nystatin (Mycostatin Cream -) 1 applic TP BID [facility] Last Admin: 03/22/19 09:41 Dose: 1 applic Ondansetron HCl (Zofran Injection) 4 mg IVPB Q8H PRN PRN Reason: NAUSEA Pantoprazole Sodium (Protonix -) 40 mg PO DAILY [facility] Last Admin: 03/22/19 09:40 Dose: 40 mg Pt Own Med(Namenda (Er 14 Mg) 1 each PO DAILY [facility] Last Admin: 03/22/19 09:41 Dose: 1 each - Objective Vital Signs: Vital Signs Temperature 97.8 F 03/22/19 10:00 Pulse Rate 95 H 03/22/19 10:00 Respiratory Rate 20 03/22/19 10:00 Blood Pressure 144/57 L 03/22/19 10:00 O2 Sat by Pulse Oximetry (%) 96 03/22/19 09:00 Constitutional: Yes: No Distress, Calm Eyes: Yes: Conjunctiva Clear HENT: Yes: Atraumatic Cardiovascular: Yes: Regular Rate and Rhythm Respiratory: Yes: Regular, Diminished Gastrointestinal: Yes: Normal Bowel Sounds, Soft, Abdomen, Obese Genitourinary: Yes: Incontinence Musculoskeletal: Yes: Muscle Weakness Extremities: Yes: WNL Edema: Yes Edema: LLE: 2+, RLE: 2+ Integumentary: Yes: Bruising (RUE-lower forearm) Neurological: Yes: Alert Psychiatric: Yes: Alert, Oriented (to person and place) Labs: CBC, BMP 03/22/19 06:00 03/22/19 08:20 INR, PTT INR 1.16 (0.83-1.09) H 03/10/19 21:35 Microbiology 03/16/19 16:00 Blood - Peripheral Venous Blood Culture - Final NO GROWTH AFTER 5 DAYS INCUBATION 03/16/19 15:45 Blood - Peripheral Venous Blood Culture - Final NO GROWTH AFTER 5 DAYS INCUBATION 03/18/19 02:20 Urine - Urine Crespo Urine Culture - Final NO GROWTH OBTAINED 03/10/19 21:35 Blood - Peripheral Venous Blood Culture - Final NO GROWTH AFTER 5 DAYS INCUBATION 03/10/19 21:35 Blood - Peripheral Venous Blood Culture - Final NO GROWTH AFTER 5 DAYS INCUBATION 03/12/19 14:05 Urine For Antigen Detection Legionella Antigen - Final 03/12/19 14:05 Urine For Antigen Detection Streptococcus pneumoniae Antigen (M - Final 03/11/19 09:41 Urine - Urine - Catheterized Urine Culture - Final NO GROWTH OBTAINED Problem List - Problems (1) ANI (acute kidney injury) Assessment/Plan: -BUN/Cr 271.0 -2/2 to GI bleed -renal on board -monitor renal function daily -Urology on board after hydronephrosis noted on Renal US Code(s): N17.9 - ACUTE KIDNEY FAILURE, UNSPECIFIED (2) Elevated troponin Assessment/Plan: -troponin 0.03 -cardiology on board Code(s): R74.8 - ABNORMAL LEVELS OF OTHER SERUM ENZYMES (3) Hyponatremia Assessment/Plan: -Na 142 -resolved -monitor electrolyte and replete as needed Code(s): E87.1 - HYPO-OSMOLALITY AND HYPONATREMIA (4) Paroxysmal A-fib Assessment/Plan: -continue Metoprolol -holter monitor results reviewed--no signs of Afib on holter monitor Code(s): I48.0 - PAROXYSMAL ATRIAL FIBRILLATION (5) Pneumonia Assessment/Plan: -Pulm and ID on board -WBC 17.0 -leukocytosis -afebrile -bronchodilators -repeat CXR results reviewed -repeat BC neg Code(s): J18.9 - PNEUMONIA, UNSPECIFIED ORGANISM (6) Anemia Assessment/Plan: -Hg 9.4 -Pantoprazole PO daily -GI on board -Endoscopy performed and GI notes reviewed Code(s): D64.9 - ANEMIA, UNSPECIFIED (7) Confusion Assessment/Plan: -neurology on board Code(s): R41.0 - DISORIENTATION, UNSPECIFIED Assessment/Plan see problem list dvt ppx
--- NOTE | 2019-03-22 15:45 | PN ---
Progress Note, Physician History of Present Illness: PULMONARY ALERT,NO DISTRESS,OOB-CHAIR - Current Medication List Current Medications: Active Medications Acetaminophen (Tylenol -) 650 mg PO Q6H PRN PRN Reason: PAIN LEVEL 1-5 Last Admin: 03/21/19 15:26 Dose: 650 mg Atorvastatin Calcium (Lipitor -) 40 mg PO HS [facility] Last Admin: 03/21/19 21:53 Dose: 40 mg Donepezil HCl (Aricept -) 10 mg PO HS [facility] Last Admin: 03/21/19 21:53 Dose: 10 mg Lidocaine/Aluminum/Magnesium/Simeth (Magic Mouthwash *Sjr Formula* -) 5 ml MM Q6HPO [facility] Last Admin: 03/22/19 11:19 Dose: 5 ml Melatonin (Melatonin) 5 mg PO HS PRN PRN Reason: INSOMNIA Last Admin: 03/21/19 22:51 Dose: 5 mg Metoprolol Tartrate (Lopressor -) 25 mg PO BID [facility] Last Admin: 03/22/19 09:40 Dose: 25 mg Nystatin (Mycostatin Cream -) 1 applic TP BID [facility] Last Admin: 03/22/19 09:41 Dose: 1 applic Ondansetron HCl (Zofran Injection) 4 mg IVPB Q8H PRN PRN Reason: NAUSEA Pantoprazole Sodium (Protonix -) 40 mg PO DAILY [facility] Last Admin: 03/22/19 09:40 Dose: 40 mg Pt Own Med(Namenda (Er 14 Mg) 1 each PO DAILY [facility] Last Admin: 03/22/19 09:41 Dose: 1 each - Objective Vital Signs: Vital Signs Temperature 97.7 F 03/22/19 13:58 Pulse Rate 97 H 03/22/19 13:58 Respiratory Rate 20 03/22/19 13:58 Blood Pressure 140/72 03/22/19 13:58 O2 Sat by Pulse Oximetry (%) 96 03/22/19 09:00 Constitutional: Yes: Well Nourished, Calm Eyes: Yes: WNL HENT: Yes: WNL Neck: Yes: WNL Cardiovascular: Yes: Regular Rate and Rhythm, S1, S2 Respiratory: Yes: Diminished Gastrointestinal: Yes: Normal Bowel Sounds, Soft Extremities: Yes: WNL Edema: No Labs: CBC, BMP 03/22/19 06:00 03/22/19 08:20 INR, PTT INR 1.16 (0.83-1.09) H 03/10/19 21:35 Problem List - Problems (1) Acute respiratory failure with hypoxia and hypercapnia Code(s): J96.01 - ACUTE RESPIRATORY FAILURE WITH HYPOXIA; J96.02 - ACUTE RESPIRATORY FAILURE WITH HYPERCAPNIA (2) ANI (acute kidney injury) Code(s): N17.9 - ACUTE KIDNEY FAILURE, UNSPECIFIED (3) Elevated troponin Code(s): R74.8 - ABNORMAL LEVELS OF OTHER SERUM ENZYMES (4) Hyponatremia Code(s): E87.1 - HYPO-OSMOLALITY AND HYPONATREMIA (5) Pneumonia Code(s): J18.9 - PNEUMONIA, UNSPECIFIED ORGANISM Assessment/Plan ASSESSMENT AND PLAN: GI Bleed stable Duodenal Ulcer Acute Blood Loss Anemia Pneumonia LV Diastolic Dysfunction Acute Kidney Injury improving HTN Hyperlipidemia Lung Nodules Smoker - monitor H/H - transfuse as needed - protonix - holding anticoagulation DR MOROCHO
[2019-03-22] MEDS: DONEPEZIL HCL 10 MG TABLET (FP) PO SCH (22:46)
[2019-03-22] MEDS: MELATONIN 5 MG TABLETS PO PRN (22:46)
[2019-03-22] MEDS: ATORVASTATIN CA 40 MG TABLET (FP) PO SCH (22:46)
[2019-03-23] MEDS: MAG HYDROX/ALH/SMC/DPHA/LIDO 240 ML MOUTHWASH MM SCH ×4 (00:40→19:11)
[2019-03-23 07:35] LABS: HEMATOCRIT 27.3 % (32.4-45.2); HEMOGLOBIN 9.2 GM/dL (10.7-15.3); MCH 29.9 pg (25.7-33.7); MCHC 33.5 g/dl (32.0-36.0); MEAN CELL VOLUME 89.4 fl (80-96); MEAN PLT VOLUME 8.8 fl (7.5-11.1); PLATELET COUNT 129 K/MM3 (134-434); RBC 3.06 M/mm3 (3.60-5.2); RDW 15.7 % (11.6-15.6); WHITE BLOOD COUNT 16.5 K/mm3 (4.0-10.0)
[2019-03-23 07:53] LABS: ALBUMIN 2.2 g/dl (3.4-5.0); ALK PHOS 63 U/L (45-117); ANION GAP 5 MMOL/L (8-16); BILIRUBIN,TOTAL 0.9 mg/dL (0.2-1); BLOOD UREA NITROGEN 22 mg/dL (7-18); CALCIUM 8.6 mg/dL (8.5-10.1); CHLORIDE 104 mmol/L (98-107); CO2 29 mmol/L (21-32); GLUCOSE,RANDOM 83 mg/dL (74-106); POTASSIUM 3.7 mmol/L (3.5-5.1); SGOT/AST 38 U/L (15-37); SGPT/ALT 33 U/L (13-61); SODIUM 138 mmol/L (136-145); TOT PROT 5.2 g/dl (6.4-8.2)
[2019-03-23] MEDS: PANTOPRAZOLE 40 MG TABLET (FP) PO SCH (09:40)
[2019-03-23] MEDS: METOPROLOL TARTRATE 25 MG TABLET (FP) PO SCH ×2 (09:40→21:52)
[2019-03-23] MEDS: NYSTATIN 100,000 UNIT/GM TOPICAL CREAM 15 GM TUBE TP SCH ×2 (09:41→21:52)
[2019-03-23] MEDS: NAMENDA 14 MG PO SCH (09:42)
--- NOTE | 2019-03-23 09:58 | PN ---
Progress Note (short form) - Note Progress Note: Renal function improved and stable will sign off case at this time please call with any questions or if there is a change in clinical status Thank you for allowing us to take part in the care of this patient Irving King DO
--- NOTE | 2019-03-23 12:51 | PN ---
Progress Note, Physician - Current Medication List Current Medications: Active Medications Acetaminophen (Tylenol -) 650 mg PO Q6H PRN PRN Reason: PAIN LEVEL 1-5 Last Admin: 03/21/19 15:26 Dose: 650 mg Atorvastatin Calcium (Lipitor -) 40 mg PO HS [facility] Last Admin: 03/22/19 22:46 Dose: 40 mg Donepezil HCl (Aricept -) 10 mg PO HS [facility] Last Admin: 03/22/19 22:46 Dose: 10 mg Lidocaine/Aluminum/Magnesium/Simeth (Magic Mouthwash *Sjr Formula* -) 5 ml MM Q6HPO [facility] Last Admin: 03/23/19 12:46 Dose: 5 ml Melatonin (Melatonin) 5 mg PO HS PRN PRN Reason: INSOMNIA Last Admin: 03/22/19 22:46 Dose: 5 mg Metoprolol Tartrate (Lopressor -) 25 mg PO BID [facility] Last Admin: 03/23/19 09:40 Dose: 25 mg Nystatin (Mycostatin Cream -) 1 applic TP BID [facility] Last Admin: 03/23/19 09:41 Dose: 1 applic Ondansetron HCl (Zofran Injection) 4 mg IVPB Q8H PRN PRN Reason: NAUSEA Pantoprazole Sodium (Protonix -) 40 mg PO DAILY [facility] Last Admin: 03/23/19 09:40 Dose: 40 mg Pt Own Med(Namenda (Er 14 Mg) 1 each PO DAILY [facility] Last Admin: 03/23/19 09:42 Dose: 1 each - Objective Vital Signs: Vital Signs Temperature 97.9 F 03/23/19 04:00 Pulse Rate 96 H 03/23/19 04:00 Respiratory Rate 20 03/23/19 04:00 Blood Pressure 154/76 03/23/19 04:00 O2 Sat by Pulse Oximetry (%) 98 03/22/19 21:00 Cardiovascular: Yes: S1, S2 Respiratory: Yes: Regular, CTA Bilaterally Gastrointestinal: Yes: Normal Bowel Sounds, Soft Neurological: Yes: Alert, Confusion, Weakness Labs: CBC, BMP 03/23/19 05:45 03/23/19 05:45 INR, PTT INR 1.16 (0.83-1.09) H 03/10/19 21:35 Problem List - Problems (1) Elevated troponin Code(s): R74.8 - ABNORMAL LEVELS OF OTHER SERUM ENZYMES (2) Pneumonia Code(s): J18.9 - PNEUMONIA, UNSPECIFIED ORGANISM (3) Paroxysmal A-fib Code(s): I48.0 - PAROXYSMAL ATRIAL FIBRILLATION (4) ANI (acute kidney injury) Code(s): N17.9 - ACUTE KIDNEY FAILURE, UNSPECIFIED Assessment/Plan - Problems (1) ANI (acute kidney injury) Assessment/Plan: -BUN/Cr 27/1.0 -2/2 to GI bleed -renal on board -monitor renal function daily -Urology on board after hydronephrosis noted on Renal US Code(s): N17.9 - ACUTE KIDNEY FAILURE, UNSPECIFIED (2) Elevated troponin Assessment/Plan: -troponin 0.03 -cardiology on board Code(s): R74.8 - ABNORMAL LEVELS OF OTHER SERUM ENZYMES (3) Hyponatremia Assessment/Plan: -Na 142 -resolved -monitor electrolyte and replete as needed Code(s): E87.1 - HYPO-OSMOLALITY AND HYPONATREMIA (4) Paroxysmal A-fib Assessment/Plan: -continue Metoprolol -holter monitor results reviewed--no signs of Afib on holter monitor Code(s): I48.0 - PAROXYSMAL ATRIAL FIBRILLATION (5) Pneumonia Assessment/Plan: -Pulm and ID on board -WBC 17.0 -leukocytosis -afebrile -bronchodilators -repeat CXR results reviewed -repeat BC neg Code(s): J18.9 - PNEUMONIA, UNSPECIFIED ORGANISM (6) Anemia Assessment/Plan: -Hg 9.4 -Pantoprazole PO daily -GI on board -Endoscopy performed and GI notes reviewed Code(s): D64.9 - ANEMIA, UNSPECIFIED (7) Confusion Assessment/Plan: -neurology on board -DEMENTIA Code(s): R41.0 - DISORIENTATION, UNSPECIFIED
--- NOTE | 2019-03-23 14:34 | PN ---
Progress Note, Physician History of Present Illness: pulmonary alert,confused c/o sob although appears comfortable,o2 sat 94% on nasal cannula - Current Medication List Current Medications: Active Medications Acetaminophen (Tylenol -) 650 mg PO Q6H PRN PRN Reason: PAIN LEVEL 1-5 Last Admin: 03/21/19 15:26 Dose: 650 mg Atorvastatin Calcium (Lipitor -) 40 mg PO HS [facility] Last Admin: 03/22/19 22:46 Dose: 40 mg Donepezil HCl (Aricept -) 10 mg PO HS [facility] Last Admin: 03/22/19 22:46 Dose: 10 mg Lidocaine/Aluminum/Magnesium/Simeth (Magic Mouthwash *Sjr Formula* -) 5 ml MM Q6HPO [facility] Last Admin: 03/23/19 12:46 Dose: 5 ml Melatonin (Melatonin) 5 mg PO HS PRN PRN Reason: INSOMNIA Last Admin: 03/22/19 22:46 Dose: 5 mg Metoprolol Tartrate (Lopressor -) 25 mg PO BID [facility] Last Admin: 03/23/19 09:40 Dose: 25 mg Nystatin (Mycostatin Cream -) 1 applic TP BID [facility] Last Admin: 03/23/19 09:41 Dose: 1 applic Ondansetron HCl (Zofran Injection) 4 mg IVPB Q8H PRN PRN Reason: NAUSEA Pantoprazole Sodium (Protonix -) 40 mg PO DAILY [facility] Last Admin: 03/23/19 09:40 Dose: 40 mg Pt Own Med(Namenda (Er 14 Mg) 1 each PO DAILY [facility] Last Admin: 03/23/19 09:42 Dose: 1 each - Objective Vital Signs: Vital Signs Temperature 98.6 F 03/23/19 09:00 Pulse Rate 99 H 03/23/19 09:00 Respiratory Rate 20 03/23/19 09:00 Blood Pressure 155/85 03/23/19 09:00 O2 Sat by Pulse Oximetry (%) 98 03/22/19 21:00 Constitutional: Yes: Well Nourished, Calm Eyes: Yes: WNL HENT: Yes: WNL Neck: Yes: WNL Cardiovascular: Yes: Regular Rate and Rhythm, S1, S2 Respiratory: Yes: Diminished Gastrointestinal: Yes: Normal Bowel Sounds, Soft Extremities: Yes: WNL Edema: Yes Labs: CBC, BMP 03/23/19 05:45 03/23/19 05:45 INR, PTT INR 1.16 (0.83-1.09) H 03/10/19 21:35 Problem List - Problems (1) Acute respiratory failure with hypoxia and hypercapnia Code(s): J96.01 - ACUTE RESPIRATORY FAILURE WITH HYPOXIA; J96.02 - ACUTE RESPIRATORY FAILURE WITH HYPERCAPNIA (2) ANI (acute kidney injury) Code(s): N17.9 - ACUTE KIDNEY FAILURE, UNSPECIFIED (3) Elevated troponin Code(s): R74.8 - ABNORMAL LEVELS OF OTHER SERUM ENZYMES (4) Hyponatremia Code(s): E87.1 - HYPO-OSMOLALITY AND HYPONATREMIA (5) Pneumonia Code(s): J18.9 - PNEUMONIA, UNSPECIFIED ORGANISM Assessment/Plan ASSESSMENT AND PLAN: GI Bleed stable Duodenal Ulcer Acute Blood Loss Anemia Pneumonia LV Diastolic Dysfunction Acute Kidney Injury improving HTN Hyperlipidemia Lung Nodules Smoker - monitor H/H - transfuse as needed - protonix - holding anticoagulation - chest x-ray - abg - inhaled bronchodilators DR MOROCHO
[2019-03-23] MEDS ORDERED: ALBUTEROL SO4 2.5/IPRATROPIUM 0.5 INH SOL 3 ML VIAL.NEB. NEB PRN (14:35)
[2019-03-23 16:40] LABS: ARTERIAL BLD GAS O2 SATURATION 97.1 % (95-98); ARTERIAL BLOOD GAS BASE EXCESS 1.4 meq/l (-2-2); ARTERIAL BLOOD GAS PCO2 37.3 mmHg (35-45); ARTERIAL BLOOD GAS PO2 85.6 mmHg (80-105); ARTERIAL BLOOD GAS pH 7.44 (7.35-7.45)
[2019-03-23] MEDS ORDERED: valACYclovir HCL 500 MG TABLET (FP) PO ONE (19:45)
[2019-03-23] MEDS ORDERED: PT OWN MED DRAWER 7, Y5N ONE ×2 (21:14→21:49)
[2019-03-23] MEDS: DONEPEZIL HCL 10 MG TABLET (FP) PO SCH (21:52)
[2019-03-23] MEDS: ATORVASTATIN CA 40 MG TABLET (FP) PO SCH (21:52)
[2019-03-23] MEDS: MELATONIN 5 MG TABLETS PO PRN (21:52)
[2019-03-24] MEDS: MAG HYDROX/ALH/SMC/DPHA/LIDO 240 ML MOUTHWASH MM SCH ×5 (01:09→23:49)
[2019-03-24] MEDS: NYSTATIN 100,000 UNIT/GM TOPICAL CREAM 15 GM TUBE TP SCH ×2 (11:04→21:46)
[2019-03-24] MEDS: PANTOPRAZOLE 40 MG TABLET (FP) PO SCH (11:05)
[2019-03-24] MEDS: METOPROLOL TARTRATE 25 MG TABLET (FP) PO SCH ×2 (11:05→21:07)
--- NOTE | 2019-03-24 11:06 | PN ---
Progress Note, Physician - Current Medication List Current Medications: Active Medications Acetaminophen (Tylenol -) 650 mg PO Q6H PRN PRN Reason: PAIN LEVEL 1-5 Last Admin: 03/21/19 15:26 Dose: 650 mg Albuterol/Ipratropium (Duoneb -) 1 amp NEB Q4H PRN PRN Reason: SHORTNESS OF BREATH Last Admin: 03/23/19 16:47 Dose: 1 amp Atorvastatin Calcium (Lipitor -) 40 mg PO HS [facility] Last Admin: 03/23/19 21:52 Dose: 40 mg Donepezil HCl (Aricept -) 10 mg PO HS [facility] Last Admin: 03/23/19 21:52 Dose: 10 mg Lidocaine/Aluminum/Magnesium/Simeth (Magic Mouthwash *Sjr Formula* -) 5 ml MM Q6HPO [facility] Last Admin: 03/24/19 11:04 Dose: 5 ml Melatonin (Melatonin) 5 mg PO HS PRN PRN Reason: INSOMNIA Last Admin: 03/23/19 21:52 Dose: 5 mg Metoprolol Tartrate (Lopressor -) 25 mg PO BID [facility] Last Admin: 03/24/19 11:05 Dose: 25 mg Nystatin (Mycostatin Cream -) 1 applic TP BID [facility] Last Admin: 03/24/19 11:04 Dose: 1 applic Ondansetron HCl (Zofran Injection) 4 mg IVPB Q8H PRN PRN Reason: NAUSEA Pantoprazole Sodium (Protonix -) 40 mg PO DAILY [facility] Last Admin: 03/24/19 11:05 Dose: 40 mg Pt Own Med(Namenda (Er 14 Mg) 1 each PO DAILY [facility] Last Admin: 03/23/19 09:42 Dose: 1 each - Objective Vital Signs: Vital Signs Temperature 98.4 F 03/24/19 05:59 Pulse Rate 102 H 03/24/19 05:59 Respiratory Rate 20 03/24/19 05:59 Blood Pressure 144/73 03/24/19 05:59 O2 Sat by Pulse Oximetry (%) 97 03/23/19 21:00 Cardiovascular: Yes: S1, S2 Respiratory: Yes: CTA Bilaterally Gastrointestinal: Yes: Normal Bowel Sounds, Soft Labs: CBC, BMP 03/23/19 05:45 03/23/19 05:45 INR, PTT INR 1.16 (0.83-1.09) H 03/10/19 21:35 Problem List - Problems (1) Elevated troponin Code(s): R74.8 - ABNORMAL LEVELS OF OTHER SERUM ENZYMES (2) Pneumonia Code(s): J18.9 - PNEUMONIA, UNSPECIFIED ORGANISM (3) Paroxysmal A-fib Code(s): I48.0 - PAROXYSMAL ATRIAL FIBRILLATION (4) ANI (acute kidney injury) Code(s): N17.9 - ACUTE KIDNEY FAILURE, UNSPECIFIED Assessment/Plan - Problems (1) ANI (acute kidney injury) Assessment/Plan: -BUN/Cr 27/1.0 -2/2 to GI bleed -renal on board -monitor renal function daily -Urology on board after hydronephrosis noted on Renal US Code(s): N17.9 - ACUTE KIDNEY FAILURE, UNSPECIFIED (2) Elevated troponin Assessment/Plan: -troponin 0.03 -cardiology on board Code(s): R74.8 - ABNORMAL LEVELS OF OTHER SERUM ENZYMES (3) Hyponatremia Assessment/Plan: -Na 142 -resolved -monitor electrolyte and replete as needed Code(s): E87.1 - HYPO-OSMOLALITY AND HYPONATREMIA (4) Paroxysmal A-fib Assessment/Plan: -continue Metoprolol -holter monitor results reviewed--no signs of Afib on holter monitor Code(s): I48.0 - PAROXYSMAL ATRIAL FIBRILLATION (5) Pneumonia Assessment/Plan: -Pulm and ID on board -WBC 17.0 -leukocytosis -afebrile-off abx -bronchodilators -repeat CXR results reviewed -repeat BC neg Code(s): J18.9 - PNEUMONIA, UNSPECIFIED ORGANISM (6) Anemia Assessment/Plan: -Hg 9.4 -Pantoprazole PO daily -GI on board -Endoscopy performed and GI notes reviewed Code(s): D64.9 - ANEMIA, UNSPECIFIED (7) Confusion Assessment/Plan: -neurology on board -DEMENTIA Code(s): R41.0 - DISORIENTATION, UNSPECIFIED
[2019-03-24] MEDS: NAMENDA 14 MG PO SCH (11:13)
--- NOTE | 2019-03-24 12:57 | PN ---
Progress Note, Physician History of Present Illness: PULMONARY AWAKE ,ALERT,NO COMPLAINTS,-SOB - Current Medication List Current Medications: Active Medications Acetaminophen (Tylenol -) 650 mg PO Q6H PRN PRN Reason: PAIN LEVEL 1-5 Last Admin: 03/21/19 15:26 Dose: 650 mg Albuterol/Ipratropium (Duoneb -) 1 amp NEB Q4H PRN PRN Reason: SHORTNESS OF BREATH Last Admin: 03/23/19 16:47 Dose: 1 amp Atorvastatin Calcium (Lipitor -) 40 mg PO HS [facility] Last Admin: 03/23/19 21:52 Dose: 40 mg Donepezil HCl (Aricept -) 10 mg PO HS [facility] Last Admin: 03/23/19 21:52 Dose: 10 mg Lidocaine/Aluminum/Magnesium/Simeth (Magic Mouthwash *Sjr Formula* -) 5 ml MM Q6HPO [facility] Last Admin: 03/24/19 11:04 Dose: 5 ml Melatonin (Melatonin) 5 mg PO HS PRN PRN Reason: INSOMNIA Last Admin: 03/23/19 21:52 Dose: 5 mg Metoprolol Tartrate (Lopressor -) 25 mg PO BID [facility] Last Admin: 03/24/19 11:05 Dose: 25 mg Nystatin (Mycostatin Cream -) 1 applic TP BID [facility] Last Admin: 03/24/19 11:04 Dose: 1 applic Ondansetron HCl (Zofran Injection) 4 mg IVPB Q8H PRN PRN Reason: NAUSEA Pantoprazole Sodium (Protonix -) 40 mg PO DAILY [facility] Last Admin: 03/24/19 11:05 Dose: 40 mg Pt Own Med(Namenda (Er 14 Mg) 1 each PO DAILY [facility] Last Admin: 03/24/19 11:13 Dose: 1 each - Objective Vital Signs: Vital Signs Temperature 98.4 F 03/24/19 05:59 Pulse Rate 102 H 03/24/19 05:59 Respiratory Rate 20 03/24/19 05:59 Blood Pressure 144/73 03/24/19 05:59 O2 Sat by Pulse Oximetry (%) 97 03/23/19 21:00 Constitutional: Yes: Well Nourished, Calm Eyes: Yes: WNL HENT: Yes: WNL Neck: Yes: WNL Cardiovascular: Yes: Regular Rate and Rhythm, S1, S2 Respiratory: Yes: Diminished Gastrointestinal: Yes: Normal Bowel Sounds, Soft Extremities: Yes: WNL Edema: Yes Labs: CBC, BMP 03/23/19 05:45 03/23/19 05:45 INR, PTT INR 1.16 (0.83-1.09) H 03/10/19 21:35 Laboratory Tests 03/23/19 14:35 ABG pH 7.44 ABG pCO2 at Pt Temp 37.3 ABG pO2 at Pt Temp 85.6 ABG HCO3 25.0 ABG O2 Sat (Measured) 97.1 Oxygen Flow Rate Nasal o2 Problem List - Problems (1) Acute respiratory failure with hypoxia and hypercapnia Code(s): J96.01 - ACUTE RESPIRATORY FAILURE WITH HYPOXIA; J96.02 - ACUTE RESPIRATORY FAILURE WITH HYPERCAPNIA (2) ANI (acute kidney injury) Code(s): N17.9 - ACUTE KIDNEY FAILURE, UNSPECIFIED (3) Elevated troponin Code(s): R74.8 - ABNORMAL LEVELS OF OTHER SERUM ENZYMES (4) Hyponatremia Code(s): E87.1 - HYPO-OSMOLALITY AND HYPONATREMIA (5) Pneumonia Code(s): J18.9 - PNEUMONIA, UNSPECIFIED ORGANISM Assessment/Plan ASSESSMENT AND PLAN: GI Bleed stable Duodenal Ulcer Acute Blood Loss Anemia Pneumonia LV Diastolic Dysfunction Acute Kidney Injury improving HTN Hyperlipidemia Lung Nodules Smoker - monitor H/H - transfuse as needed - protonix - holding anticoagulation - inhaled bronchodilators DR MOROCHO
--- NOTE | 2019-03-24 13:14 | PN ---
Progress Note (short form) - Note Progress Note: asked to f/u for oral lesions no diarrhea off oxygen Vital Signs Period Temp Pulse Resp BP Sys/Angel Pulse Ox Last 24 Hr 98.0 F-98.4 F 63-102 20-20 125-149/54-73 97 cor-rrr lungs decreased bs at bases abd soft,nt ext no edema multiple ecchymoses mouth with ulcers on lips and tongue CBC, BMP 03/23/19 05:45 03/23/19 05:45 Microbiology 03/16/19 16:00 Blood - Peripheral Venous Blood Culture - Final NO GROWTH AFTER 5 DAYS INCUBATION 03/16/19 15:45 Blood - Peripheral Venous Blood Culture - Final NO GROWTH AFTER 5 DAYS INCUBATION 03/18/19 02:20 Urine - Urine Crespo Urine Culture - Final NO GROWTH OBTAINED 03/10/19 21:35 Blood - Peripheral Venous Blood Culture - Final NO GROWTH AFTER 5 DAYS INCUBATION 03/10/19 21:35 Blood - Peripheral Venous Blood Culture - Final NO GROWTH AFTER 5 DAYS INCUBATION 03/12/19 14:05 Urine For Antigen Detection Legionella Antigen - Final 03/12/19 14:05 Urine For Antigen Detection Streptococcus pneumoniae Antigen (M - Final 03/11/19 09:41 Urine - Urine - Catheterized Urine Culture - Final NO GROWTH OBTAINED Current Medications Acetaminophen (Tylenol -) 650 mg PO Q6H PRN PRN Reason: PAIN LEVEL 1-5 Last Admin: 03/21/19 15:26 Dose: 650 mg Albuterol/Ipratropium (Duoneb -) 1 amp NEB Q4H PRN PRN Reason: SHORTNESS OF BREATH Last Admin: 03/23/19 16:47 Dose: 1 amp Atorvastatin Calcium (Lipitor -) 40 mg PO HS [facility] Last Admin: 03/23/19 21:52 Dose: 40 mg Donepezil HCl (Aricept -) 10 mg PO HS [facility] Last Admin: 03/23/19 21:52 Dose: 10 mg Lidocaine/Aluminum/Magnesium/Simeth (Magic Mouthwash *Sjr Formula* -) 5 ml MM Q6HPO [facility] Last Admin: 03/24/19 11:04 Dose: 5 ml Melatonin (Melatonin) 5 mg PO HS PRN PRN Reason: INSOMNIA Last Admin: 03/23/19 21:52 Dose: 5 mg Metoprolol Tartrate (Lopressor -) 25 mg PO BID [facility] Last Admin: 03/24/19 11:05 Dose: 25 mg Nystatin (Mycostatin Cream -) 1 applic TP BID [facility] Last Admin: 03/24/19 11:04 Dose: 1 applic Ondansetron HCl (Zofran Injection) 4 mg IVPB Q8H PRN PRN Reason: NAUSEA Pantoprazole Sodium (Protonix -) 40 mg PO DAILY [facility] Last Admin: 03/24/19 11:05 Dose: 40 mg Pt Own Med(Namenda (Er 14 Mg) 1 each PO DAILY [facility] Last Admin: 03/24/19 11:13 Dose: 1 each cxray unchanged 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
[2019-03-24] MEDS ORDERED: PT OWN MED DRAWER 7, Y5N ONE (21:02)
[2019-03-24] MEDS: ACETAMINOPHEN 325 MG TABLET (FP) PO PRN (21:06)
[2019-03-24] MEDS: valACYclovir HCL 500 MG TABLET (FP) PO SCH (21:06)
[2019-03-24] MEDS: MELATONIN 5 MG TABLETS PO PRN (21:06)
[2019-03-24] MEDS: ATORVASTATIN CA 40 MG TABLET (FP) PO SCH (21:06)
[2019-03-24] MEDS: DONEPEZIL HCL 10 MG TABLET (FP) PO SCH (21:07)
[2019-03-25] MEDS: MAG HYDROX/ALH/SMC/DPHA/LIDO 240 ML MOUTHWASH MM SCH ×3 (05:43→17:45)
[2019-03-25] MEDS ORDERED: PT OWN MED DRAWER 7, Y5N ONE ×2 (06:41→08:33)
[2019-03-25] MEDS: PANTOPRAZOLE 40 MG TABLET (FP) PO SCH (09:08)
[2019-03-25] MEDS: METOPROLOL TARTRATE 25 MG TABLET (FP) PO SCH (09:08)
[2019-03-25] MEDS: valACYclovir HCL 500 MG TABLET (FP) PO SCH (09:08)
[2019-03-25] MEDS: NAMENDA 14 MG PO SCH (09:09)
--- NOTE | 2019-03-25 13:01 | DS ---
Physical Examination Vital Signs: Vital Signs Temperature 98.1 F 03/25/19 10:00 Pulse Rate 103 H 03/25/19 10:00 Respiratory Rate 20 03/25/19 10:00 Blood Pressure 148/88 03/25/19 10:00 O2 Sat by Pulse Oximetry (%) 100 03/25/19 09:00 Findings/Remarks: Patient is an 88 y/o female with past medical history of HTN, HLD, CHF, dementia. Patient brought in by daughter for generalized weakness, cough, adn SOB for past day. Patient was treated for PNA while in patient with IV ABT. Noted with drop in Hg and melena, patient was treated for GI bleed. Constitutional: Yes: No Distress, Calm Eyes: Yes: Conjunctiva Clear HENT: Yes: Atraumatic Cardiovascular: Yes: Regular Rate and Rhythm Respiratory: Yes: Regular, CTA Bilaterally Gastrointestinal: Yes: Normal Bowel Sounds, Soft, Abdomen, Obese Renal/: Yes: Incontinence Musculoskeletal: Yes: Muscle Weakness Extremities: Yes: WNL Edema: No Neurological: Yes: Alert, Confusion Psychiatric: Yes: Alert Labs: CBC, BMP 03/23/19 05:45 03/23/19 05:45 Discharge Summary Reason For Visit: PNEUMONIA/HYPOKALEMIA Current Active Problems ANI (acute kidney injury) (Acute) Acute GI bleeding (Acute) Acute respiratory failure with hypoxia and hypercapnia (Acute) Agitation (Acute) Anemia (Acute) Confusion (Acute) Duodenal ulcer (Acute) Elevated troponin (Acute) GI bleed (Acute) Hypokalemia (Acute) Hyponatremia (Acute) Leukocytosis (Acute) Mass of perirectal soft tissue (Acute) Paroxysmal A-fib (Acute) Pneumonia (Acute) Renal insufficiency (Acute) Hospital Course: see progress notes Laboratory Tests 03/10/19 03/10/19 03/10/19 21:35 21:35 21:35 WBC 28.0 H RBC 4.54 Hgb 13.4 Hct 40.1 MCV 88.4 MCH 29.6 MCHC 33.5 RDW 15.0 Plt Count 341 MPV 9.0 Absolute Neuts (auto) 24.6 H Neutrophils % 87.8 H Neutrophils % (Manual) 79.0 Band Neutrophils % 10.0 Lymphocytes % 1.7 L Lymphocytes % (Manual) 3.0 L Monocytes % 10.2 Monocytes % (Manual) 8 Eosinophils % 0.1 Eosinophils % (Manual) Basophils % 0.2 Basophils % (Manual) Myelocytes % (Man) Promyelocytes % (Man) Blast Cells % (Manual) Nucleated RBC % 0 Metamyelocytes Hypochromia Platelet Estimate Adequate Platelet Comment No clumping noted Polychromasia Poikilocytosis Anisocytosis Microcytosis Macrocytosis Ovalocytes PT with INR INR PTT (Actin FS) Anticoagulation Therapy Puncture Site ABG pH ABG pCO2 at Pt Temp ABG pO2 at Pt Temp ABG HCO3 ABG O2 Sat (Measured) ABG O2 Content ABG Base Excess Jimmy Test O2 Delivery Device Oxygen Flow Rate Vent Mode Vent Rate Mechanical Rate PEEP Pressure Support Vent Sodium 131 L Potassium 2.8 L* Chloride 90 L Carbon Dioxide 30 Anion Gap 12 BUN 67 H Creatinine 2.1 H Creat Clearance w eGFR 22.28 Random Glucose 141 H Hemoglobin A1c % Lactic Acid Calcium 9.4 Phosphorus Magnesium 2.1 Total Bilirubin 1.1 H AST 62 H ALT 44 Alkaline Phosphatase 75 Creatine Kinase Creatine Kinase Index CK-MB (CK-2) Troponin I 0.13 H B-Natriuretic Peptide 6161.2 H Total Protein 7.1 Albumin 2.2 L Vitamin B12 Urine Color Urine Appearance Urine pH Ur Specific [place] Urine Protein Urine Glucose (UA) Urine Ketones Urine Blood Urine Nitrite Urine Bilirubin Urine Urobilinogen Ur Leukocyte Esterase Urine WBC (Auto) Urine RBC (Auto) Urine Casts (Auto) U Pathogenic Cast Auto U Epithel Cells (Auto) Urine Bacteria (Auto) Influenza A (Rapid) Negative Influenza B (Rapid) Negative Blood Type Antibody Screen Crossmatch 03/10/19 03/10/19 03/11/19 21:35 22:00 05:20 WBC 24.1 H RBC 4.35 Hgb 13.0 Hct 38.0 MCV 87.5 MCH 29.9 MCHC 34.2 RDW 15.3 Plt Count 341 MPV 9.0 Absolute Neuts (auto) Neutrophils % Neutrophils % (Manual) Band Neutrophils % Lymphocytes % Lymphocytes % (Manual) Monocytes % Monocytes % (Manual) Eosinophils % Eosinophils % (Manual) Basophils % Basophils % (Manual) Myelocytes % (Man) Promyelocytes % (Man) Blast Cells % (Manual) Nucleated RBC % Metamyelocytes Hypochromia Platelet Estimate Platelet Comment Polychromasia Poikilocytosis Anisocytosis Microcytosis Macrocytosis Ovalocytes PT with INR 13.70 H INR 1.16 H PTT (Actin FS) 30.1 Anticoagulation Therapy Puncture Site ABG pH ABG pCO2 at Pt Temp ABG pO2 at Pt Temp ABG HCO3 ABG O2 Sat (Measured) ABG O2 Content ABG Base Excess Jimmy Test O2 Delivery Device Oxygen Flow Rate Vent Mode Vent Rate Mechanical Rate PEEP Pressure Support Vent Sodium Potassium Chloride Carbon Dioxide Anion Gap BUN Creatinine Creat Clearance w eGFR Random Glucose Hemoglobin A1c % Lactic Acid 1.7 Calcium Phosphorus Magnesium Total Bilirubin AST ALT Alkaline Phosphatase Creatine Kinase Creatine Kinase Index CK-MB (CK-2) Troponin I B-Natriuretic Peptide Total Protein Albumin Vitamin B12 Urine Color Urine Appearance Urine pH Ur Specific [place] Urine Protein Urine Glucose (UA) Urine Ketones Urine Blood Urine Nitrite Urine Bilirubin Urine Urobilinogen Ur Leukocyte Esterase Urine WBC (Auto) Urine RBC (Auto) Urine Casts (Auto) U Pathogenic Cast Auto U Epithel Cells (Auto) Urine Bacteria (Auto) Influenza A (Rapid) Influenza B (Rapid) Blood Type Antibody Screen Crossmatch 03/11/19 03/11/19 03/11/19 05:20 06:00 09:41 WBC RBC Hgb Hct MCV MCH MCHC RDW Plt Count MPV Absolute Neuts (auto) Neutrophils % Neutrophils % (Manual) Band Neutrophils % Lymphocytes % Lymphocytes % (Manual) Monocytes % Monocytes % (Manual) Eosinophils % Eosinophils % (Manual) Basophils % Basophils % (Manual) Myelocytes % (Man) Promyelocytes % (Man) Blast Cells % (Manual) Nucleated RBC % Metamyelocytes Hypochromia Platelet Estimate Platelet Comment Polychromasia Poikilocytosis Anisocytosis Microcytosis Macrocytosis Ovalocytes PT with INR INR PTT (Actin FS) Anticoagulation Therapy Puncture Site ABG pH ABG pCO2 at Pt Temp ABG pO2 at Pt Temp ABG HCO3 ABG O2 Sat (Measured) ABG O2 Content ABG Base Excess Jimmy Test O2 Delivery Device Oxygen Flow Rate Vent Mode Vent Rate Mechanical Rate PEEP Pressure Support Vent Sodium 131 L Potassium 3.5 Chloride 92 L Carbon Dioxide 29 Anion Gap 10 BUN 71 H Creatinine 2.0 H Creat Clearance w eGFR 23.57 Random Glucose 153 H Hemoglobin A1c % Lactic Acid Calcium 8.9 Phosphorus Magnesium Total Bilirubin AST ALT Alkaline Phosphatase Creatine Kinase Cancelled 404 H Creatine Kinase Index 1.8 CK-MB (CK-2) 7.6 H Troponin I Cancelled 0.09 H B-Natriuretic Peptide Total Protein Albumin Vitamin B12 Urine Color Yellow Urine Appearance Cloudy Urine pH 5.0 Ur Specific [place] 1.015 Urine Protein 1+ H Urine Glucose (UA) Negative Urine Ketones Negative Urine Blood 1+ H Urine Nitrite Negative Urine Bilirubin Negative Urine Urobilinogen 1.0 Ur Leukocyte Esterase Negative Urine WBC (Auto) 5 Urine RBC (Auto) 5.2 Urine Casts (Auto) 21 U Pathogenic Cast Auto Granular cast seen U Epithel Cells (Auto) 2.8 Urine Bacteria (Auto) 0.7 Influenza A (Rapid) Influenza B (Rapid) Blood Type Antibody Screen Crossmatch 03/11/19 03/12/19 03/12/19 15:25 07:08 07:08 WBC 16.5 H RBC 4.19 Hgb 12.5 Hct 36.9 MCV 87.9 MCH 29.7 MCHC 33.8 RDW 15.3 Plt Count 332 MPV 8.8 Absolute Neuts (auto) 15.5 H Neutrophils % 93.8 H Neutrophils % (Manual) 96.0 H Band Neutrophils % 0.0 Lymphocytes % 2.2 L D Lymphocytes % (Manual) 1.0 L D Monocytes % 3.8 Monocytes % (Manual) 3 L Eosinophils % 0.1 Eosinophils % (Manual) 0.0 Basophils % 0.1 Basophils % (Manual) 0.0 Myelocytes % (Man) 0 Promyelocytes % (Man) 0 Blast Cells % (Manual) 0 Nucleated RBC % 0 Metamyelocytes 0 Hypochromia 0 Platelet Estimate Normal Platelet Comment Polychromasia 0 Poikilocytosis 0 Anisocytosis 1+ Microcytosis 1+ Macrocytosis 0 Ovalocytes PT with INR INR PTT (Actin FS) Anticoagulation Therapy No Result Required. Puncture Site Right radial ABG pH 7.37 ABG pCO2 at Pt Temp 48.6 H ABG pO2 at Pt Temp 57.8 L ABG HCO3 27.6 H ABG O2 Sat (Measured) 87.1 L ABG O2 Content 15.3 ABG Base Excess 2.2 H Jimmy Test Positive O2 Delivery Device Nasal Oxygen Flow Rate 4l Vent Mode No Result Required. Vent Rate No Result Required. Mechanical Rate No Result Required. PEEP Pressure Support Vent No Result Required. Sodium Potassium Chloride Carbon Dioxide Anion Gap BUN Creatinine Creat Clearance w eGFR Random Glucose Hemoglobin A1c % 6.9 H Lactic Acid Calcium Phosphorus Magnesium Total Bilirubin AST ALT Alkaline Phosphatase Creatine Kinase Creatine Kinase Index CK-MB (CK-2) Troponin I B-Natriuretic Peptide Total Protein Albumin Vitamin B12 Urine Color Urine Appearance Urine pH Ur Specific [place] Urine Protein Urine Glucose (UA) Urine Ketones Urine Blood Urine Nitrite Urine Bilirubin Urine Urobilinogen Ur Leukocyte Esterase Urine WBC (Auto) Urine RBC (Auto) Urine Casts (Auto) U Pathogenic Cast Auto U Epithel Cells (Auto) Urine Bacteria (Auto) Influenza A (Rapid) Influenza B (Rapid) Blood Type Antibody Screen Crossmatch 03/12/19 03/12/19 03/12/19 07:08 07:08 11:15 WBC RBC Hgb Hct MCV MCH MCHC RDW Plt Count MPV Absolute Neuts (auto) Neutrophils % Neutrophils % (Manual) Band Neutrophils % Lymphocytes % Lymphocytes % (Manual) Monocytes % Monocytes % (Manual) Eosinophils % Eosinophils % (Manual) Basophils % Basophils % (Manual) Myelocytes % (Man) Promyelocytes % (Man) Blast Cells % (Manual) Nucleated RBC % Metamyelocytes Hypochromia Platelet Estimate Platelet Comment Polychromasia Poikilocytosis Anisocytosis Microcytosis Macrocytosis Ovalocytes PT with INR INR PTT (Actin FS) Anticoagulation Therapy Puncture Site Right brachial ABG pH 7.36 ABG pCO2 at Pt Temp 51.8 H ABG pO2 at Pt Temp 71.6 L ABG HCO3 28.4 H ABG O2 Sat (Measured) 92.9 L ABG O2 Content 15.9 ABG Base Excess 2.5 H Jimmy Test Positive O2 Delivery Device Bipap Oxygen Flow Rate 40% Vent Mode S/t Vent Rate 12 Mechanical Rate Bipap PEEP 0.0 Pressure Support Vent [id number] Sodium 134 L Potassium 3.3 L Chloride 98 Carbon Dioxide 29 Anion Gap 8 BUN 77 H Creatinine 1.9 H Creat Clearance w eGFR 25.01 Random Glucose 147 H Hemoglobin A1c % Lactic Acid Calcium 9.4 Phosphorus Magnesium 2.9 H Total Bilirubin 0.4 AST 62 H ALT 48 Alkaline Phosphatase 64 Creatine Kinase 108 Creatine Kinase Index CK-MB (CK-2) Troponin I 0.03 B-Natriuretic Peptide Total Protein 6.2 L Albumin 1.8 L Vitamin B12 Urine Color Urine Appearance Urine pH Ur Specific [place] Urine Protein Urine Glucose (UA) Urine Ketones Urine Blood Urine Nitrite Urine Bilirubin Urine Urobilinogen Ur Leukocyte Esterase Urine WBC (Auto) Urine RBC (Auto) Urine Casts (Auto) U Pathogenic Cast Auto U Epithel Cells (Auto) Urine Bacteria (Auto) Influenza A (Rapid) Influenza B (Rapid) Blood Type Antibody Screen Crossmatch 03/13/19 03/13/19 03/13/19 07:20 09:00 09:00 WBC 23.7 H RBC 4.03 Hgb 12.0 Hct 35.9 MCV 88.9 MCH 29.7 MCHC 33.4 RDW 15.4 Plt Count 366 MPV 8.9 Absolute Neuts (auto) 22.4 H Neutrophils % 94.3 H Neutrophils % (Manual) 98.0 H Band Neutrophils % 0.0 Lymphocytes % 1.7 L D Lymphocytes % (Manual) 0.0 L Monocytes % 3.9 Monocytes % (Manual) 1 L Eosinophils % 0.0 D Eosinophils % (Manual) 0.0 Basophils % 0.1 Basophils % (Manual) 0.0 Myelocytes % (Man) 0 Promyelocytes % (Man) 0 Blast Cells % (Manual) 0 Nucleated RBC % 0 Metamyelocytes 0 Hypochromia 0 Platelet Estimate Normal Platelet Comment Polychromasia 3+ Poikilocytosis 0 Anisocytosis 0 Microcytosis 0 Macrocytosis 0 Ovalocytes PT with INR INR PTT (Actin FS) Anticoagulation Therapy Puncture Site Right radial ABG pH 7.37 ABG pCO2 at Pt Temp 49.7 H ABG pO2 at Pt Temp 82.8 ABG HCO3 27.9 H ABG O2 Sat (Measured) 95.6 ABG O2 Content 15.3 ABG Base Excess 2.5 H Jimmy Test Positive O2 Delivery Device Bipap Oxygen Flow Rate 40% Vent Mode S/t Vent Rate 14 Mechanical Rate Bipap PEEP Pressure Support Vent 12/6 Sodium 140 Potassium 3.4 L Chloride 103 Carbon Dioxide 30 Anion Gap 8 BUN 81 H Creatinine 1.7 H Creat Clearance w eGFR 28.43 Random Glucose 165 H Hemoglobin A1c % Lactic Acid Calcium 9.8 Phosphorus Magnesium 2.9 H Total Bilirubin 0.4 AST 53 H ALT 51 Alkaline Phosphatase 67 Creatine Kinase Creatine Kinase Index CK-MB (CK-2) Troponin I B-Natriuretic Peptide Total Protein 6.0 L Albumin 1.8 L Vitamin B12 Urine Color Urine Appearance Urine pH Ur Specific [place] Urine Protein Urine Glucose (UA) Urine Ketones Urine Blood Urine Nitrite Urine Bilirubin Urine Urobilinogen Ur Leukocyte Esterase Urine WBC (Auto) Urine RBC (Auto) Urine Casts (Auto) U Pathogenic Cast Auto U Epithel Cells (Auto) Urine Bacteria (Auto) Influenza A (Rapid) Influenza B (Rapid) Blood Type Antibody Screen Crossmatch 03/14/19 03/14/19 03/15/19 06:35 06:35 07:15 WBC 22.6 H 25.7 H RBC 4.23 3.73 Hgb 12.5 11.1 Hct 37.3 33.4 MCV 88.1 89.4 MCH 29.6 29.6 MCHC 33.6 33.1 RDW 15.6 15.6 Plt Count 410 407 MPV 8.4 8.7 Absolute Neuts (auto) 21.6 H 24.2 H Neutrophils % 95.3 H 94.3 H Neutrophils % (Manual) 91.0 H 91.0 H Band Neutrophils % 0.0 0.0 Lymphocytes % 1.6 L 2.6 L D Lymphocytes % (Manual) 5.0 L D 4.0 L Monocytes % 3.0 L 2.8 L Monocytes % (Manual) 4 D 4 Eosinophils % 0.0 0.0 Eosinophils % (Manual) 0.0 0.0 Basophils % 0.1 0.3 Basophils % (Manual) 0.0 0.0 Myelocytes % (Man) 0 1 D Promyelocytes % (Man) 0 0 Blast Cells % (Manual) 0 0 Nucleated RBC % 0 0 Metamyelocytes 0 0 Hypochromia 0 Platelet Estimate Normal Normal Platelet Comment Polychromasia 0 Poikilocytosis 1+ 1+ Anisocytosis 1+ 1+ Microcytosis 1+ 1+ Macrocytosis 0 Ovalocytes 1+ 1+ PT with INR INR PTT (Actin FS) Anticoagulation Therapy Puncture Site ABG pH ABG pCO2 at Pt Temp ABG pO2 at Pt Temp ABG HCO3 ABG O2 Sat (Measured) ABG O2 Content ABG Base Excess Jimmy Test O2 Delivery Device Oxygen Flow Rate Vent Mode Vent Rate Mechanical Rate PEEP Pressure Support Vent Sodium 137 Potassium 3.7 Chloride 101 Carbon Dioxide 31 Anion Gap 5 L BUN 67 H Creatinine 1.3 Creat Clearance w eGFR 38.75 Random Glucose 170 H Hemoglobin A1c % Lactic Acid Calcium 9.6 Phosphorus Magnesium Total Bilirubin 0.4 AST 46 H ALT 59 Alkaline Phosphatase 71 Creatine Kinase Creatine Kinase Index CK-MB (CK-2) Troponin I B-Natriuretic Peptide Total Protein 6.2 L Albumin 1.9 L Vitamin B12 Urine Color Urine Appearance Urine pH Ur Specific [place] Urine Protein Urine Glucose (UA) Urine Ketones Urine Blood Urine Nitrite Urine Bilirubin Urine Urobilinogen Ur Leukocyte Esterase Urine WBC (Auto) Urine RBC (Auto) Urine Casts (Auto) U Pathogenic Cast Auto U Epithel Cells (Auto) Urine Bacteria (Auto) Influenza A (Rapid) Influenza B (Rapid) Blood Type Antibody Screen Crossmatch 03/15/19 03/16/19 03/16/19 07:15 07:00 07:00 WBC 33.3 H* RBC 2.93 L Hgb 8.7 L Hct 26.4 L D MCV 90.2 MCH 29.7 MCHC 32.9 RDW 15.5 Plt Count 381 MPV 9.0 Absolute Neuts (auto) Neutrophils % Neutrophils % (Manual) Band Neutrophils % Lymphocytes % Lymphocytes % (Manual) Monocytes % Monocytes % (Manual) Eosinophils % Eosinophils % (Manual) Basophils % Basophils % (Manual) Myelocytes % (Man) Promyelocytes % (Man) Blast Cells % (Manual) Nucleated RBC % Metamyelocytes Hypochromia Platelet Estimate Platelet Comment Polychromasia Poikilocytosis Anisocytosis Microcytosis Macrocytosis Ovalocytes PT with INR INR PTT (Actin FS) Anticoagulation Therapy Puncture Site ABG pH ABG pCO2 at Pt Temp ABG pO2 at Pt Temp ABG HCO3 ABG O2 Sat (Measured) ABG O2 Content ABG Base Excess Jimmy Test O2 Delivery Device Oxygen Flow Rate Vent Mode Vent Rate Mechanical Rate PEEP Pressure Support Vent Sodium 138 137 Potassium 3.9 4.1 Chloride 101 99 Carbon Dioxide 30 23 Anion Gap 7 L 15 BUN 89 H 115 H* Creatinine 1.2 1.6 H Creat Clearance w eGFR 42.50 30.49 Random Glucose 196 H 256 H Hemoglobin A1c % Lactic Acid Calcium 9.7 9.1 Phosphorus Magnesium Total Bilirubin 0.4 0.2 AST 34 29 ALT 52 46 Alkaline Phosphatase 56 48 Creatine Kinase Creatine Kinase Index CK-MB (CK-2) Troponin I B-Natriuretic Peptide Total Protein 5.7 L 5.3 L Albumin 1.8 L 1.9 L Vitamin B12 Urine Color Urine Appearance Urine pH Ur Specific [place] Urine Protein Urine Glucose (UA) Urine Ketones Urine Blood Urine Nitrite Urine Bilirubin Urine Urobilinogen Ur Leukocyte Esterase Urine WBC (Auto) Urine RBC (Auto) Urine Casts (Auto) U Pathogenic Cast Auto U Epithel Cells (Auto) Urine Bacteria (Auto) Influenza A (Rapid) Influenza B (Rapid) Blood Type Antibody Screen Crossmatch 03/17/19 03/17/19 03/17/19 08:00 08:00 09:45 WBC 36.5 H* RBC 2.53 L Hgb 7.4 L Hct 22.2 L D MCV 87.7 MCH 29.1 MCHC 33.1 RDW 15.4 Plt Count 332 MPV 8.8 Absolute Neuts (auto) Neutrophils % Neutrophils % (Manual) Band Neutrophils % Lymphocytes % Lymphocytes % (Manual) Monocytes % Monocytes % (Manual) Eosinophils % Eosinophils % (Manual) Basophils % Basophils % (Manual) Myelocytes % (Man) Promyelocytes % (Man) Blast Cells % (Manual) Nucleated RBC % Metamyelocytes Hypochromia Platelet Estimate Platelet Comment Polychromasia Poikilocytosis Anisocytosis Microcytosis Macrocytosis Ovalocytes PT with INR INR PTT (Actin FS) Anticoagulation Therapy Puncture Site ABG pH ABG pCO2 at Pt Temp ABG pO2 at Pt Temp ABG HCO3 ABG O2 Sat (Measured) ABG O2 Content ABG Base Excess Jimmy Test O2 Delivery Device Oxygen Flow Rate Vent Mode Vent Rate Mechanical Rate PEEP Pressure Support Vent Sodium 136 Potassium 4.2 Chloride 101 Carbon Dioxide 27 Anion Gap 8 BUN 131 H* Creatinine 1.8 H Creat Clearance w eGFR 26.62 Random Glucose 132 H Hemoglobin A1c % Lactic Acid Calcium 9.4 Phosphorus Magnesium Total Bilirubin 0.3 AST 25 ALT 39 Alkaline Phosphatase 43 L Creatine Kinase Creatine Kinase Index CK-MB (CK-2) Troponin I B-Natriuretic Peptide Total Protein 4.9 L Albumin 1.9 L Vitamin B12 Urine Color Urine Appearance Urine pH Ur Specific [place] Urine Protein Urine Glucose (UA) Urine Ketones Urine Blood Urine Nitrite Urine Bilirubin Urine Urobilinogen Ur Leukocyte Esterase Urine WBC (Auto) Urine RBC (Auto) Urine Casts (Auto) U Pathogenic Cast Auto U Epithel Cells (Auto) Urine Bacteria (Auto) Influenza A (Rapid) Influenza B (Rapid) Blood Type A POSITIVE Antibody Screen Negative Crossmatch See Detail 03/17/19 03/18/19 03/18/19 10:30 02:20 05:30 WBC RBC Hgb Hct MCV MCH MCHC RDW Plt Count MPV Absolute Neuts (auto) Neutrophils % Neutrophils % (Manual) Band Neutrophils % Lymphocytes % Lymphocytes % (Manual) Monocytes % Monocytes % (Manual) Eosinophils % Eosinophils % (Manual) Basophils % Basophils % (Manual) Myelocytes % (Man) Promyelocytes % (Man) Blast Cells % (Manual) Nucleated RBC % Metamyelocytes Hypochromia Platelet Estimate Platelet Comment Polychromasia Poikilocytosis Anisocytosis Microcytosis Macrocytosis Ovalocytes PT with INR INR PTT (Actin FS) Anticoagulation Therapy Puncture Site ABG pH ABG pCO2 at Pt Temp ABG pO2 at Pt Temp ABG HCO3 ABG O2 Sat (Measured) ABG O2 Content ABG Base Excess Jimmy Test O2 Delivery Device Oxygen Flow Rate Vent Mode Vent Rate Mechanical Rate PEEP Pressure Support Vent Sodium 140 Potassium 4.0 Chloride 106 Carbon Dioxide 30 Anion Gap 4 L BUN 101 H Creatinine 1.6 H Creat Clearance w eGFR 30.49 Random Glucose 158 H Hemoglobin A1c % Lactic Acid Calcium 8.7 Phosphorus 4.3 Magnesium 2.5 H Total Bilirubin 0.7 AST 27 ALT 33 Alkaline Phosphatase 43 L Creatine Kinase Creatine Kinase Index CK-MB (CK-2) Troponin I B-Natriuretic Peptide Total Protein 4.6 L Albumin 1.8 L Vitamin B12 Urine Color Yellow Urine Appearance Clear Urine pH 5.0 Ur Specific [place] 1.017 Urine Protein Negative Urine Glucose (UA) Negative Urine Ketones Negative Urine Blood Negative Urine Nitrite Negative Urine Bilirubin Negative Urine Urobilinogen 0.2 Ur Leukocyte Esterase Negative Urine WBC (Auto) Urine RBC (Auto) Urine Casts (Auto) U Pathogenic Cast Auto U Epithel Cells (Auto) Urine Bacteria (Auto) Influenza A (Rapid) Influenza B (Rapid) Blood Type A POSITIVE Antibody Screen Crossmatch 03/18/19 03/19/19 03/19/19 05:30 05:30 05:30 WBC 24.4 H 24.2 H RBC 3.12 L 3.38 L Hgb 9.4 L 10.0 L Hct 27.3 L D 29.8 L MCV 87.7 88.3 MCH 30.0 29.6 MCHC 34.3 33.5 RDW 15.5 15.8 H Plt Count 237 D 225 MPV 8.4 8.0 Absolute Neuts (auto) Neutrophils % Neutrophils % (Manual) Band Neutrophils % Lymphocytes % Lymphocytes % (Manual) Monocytes % Monocytes % (Manual) Eosinophils % Eosinophils % (Manual) Basophils % Basophils % (Manual) Myelocytes % (Man) Promyelocytes % (Man) Blast Cells % (Manual) Nucleated RBC % Metamyelocytes Hypochromia Platelet Estimate Platelet Comment Polychromasia Poikilocytosis Anisocytosis Microcytosis Macrocytosis Ovalocytes PT with INR INR PTT (Actin FS) Anticoagulation Therapy Puncture Site ABG pH ABG pCO2 at Pt Temp ABG pO2 at Pt Temp ABG HCO3 ABG O2 Sat (Measured) ABG O2 Content ABG Base Excess Jimmy Test O2 Delivery Device Oxygen Flow Rate Vent Mode Vent Rate Mechanical Rate PEEP Pressure Support Vent Sodium 146 H Potassium 3.9 Chloride 110 H Carbon Dioxide 32 Anion Gap 3 L BUN 68 H Creatinine 1.3 Creat Clearance w eGFR 38.75 Random Glucose 130 H Hemoglobin A1c % Lactic Acid Calcium 8.9 Phosphorus 3.2 Magnesium 2.7 H Total Bilirubin 0.5 AST 27 ALT 34 Alkaline Phosphatase 50 Creatine Kinase Creatine Kinase Index CK-MB (CK-2) Troponin I B-Natriuretic Peptide Total Protein 4.9 L Albumin 2.1 L Vitamin B12 Urine Color Urine Appearance Urine pH Ur Specific [place] Urine Protein Urine Glucose (UA) Urine Ketones Urine Blood Urine Nitrite Urine Bilirubin Urine Urobilinogen Ur Leukocyte Esterase Urine WBC (Auto) Urine RBC (Auto) Urine Casts (Auto) U Pathogenic Cast Auto U Epithel Cells (Auto) Urine Bacteria (Auto) Influenza A (Rapid) Influenza B (Rapid) Blood Type Antibody Screen Crossmatch 03/20/19 03/20/19 03/21/19 08:30 08:30 07:00 WBC 25.8 H 22.8 H RBC 3.38 L 3.32 L Hgb 10.0 L 9.7 L Hct 29.6 L 29.3 L MCV 87.7 88.1 MCH 29.4 29.1 MCHC 33.6 33.0 RDW 15.6 15.7 H Plt Count 187 148 D MPV 7.7 8.4 Absolute Neuts (auto) 19.9 H Neutrophils % 87.1 H Neutrophils % (Manual) 86.0 H Band Neutrophils % 0.0 Lymphocytes % 5.2 L D Lymphocytes % (Manual) 4.0 L Monocytes % 6.5 D Monocytes % (Manual) 6 Eosinophils % 0.9 D Eosinophils % (Manual) 3.0 D Basophils % 0.3 Basophils % (Manual) 0.0 Myelocytes % (Man) 1 Promyelocytes % (Man) 0 Blast Cells % (Manual) 0 Nucleated RBC % 0 Metamyelocytes 0 Hypochromia 0 Platelet Estimate Decreased Platelet Comment Polychromasia 0 Poikilocytosis 1+ Anisocytosis 0 Microcytosis 0 Macrocytosis 0 Ovalocytes 1+ PT with INR INR PTT (Actin FS) Anticoagulation Therapy Puncture Site ABG pH ABG pCO2 at Pt Temp ABG pO2 at Pt Temp ABG HCO3 ABG O2 Sat (Measured) ABG O2 Content ABG Base Excess Jimmy Test O2 Delivery Device Oxygen Flow Rate Vent Mode Vent Rate Mechanical Rate PEEP Pressure Support Vent Sodium 138 Potassium 3.7 Chloride 105 Carbon Dioxide 29 Anion Gap 4 L BUN 45 H Creatinine 1.0 Creat Clearance w eGFR 52.45 Random Glucose 97 Hemoglobin A1c % Lactic Acid Calcium 8.6 Phosphorus 2.4 L Magnesium 2.3 Total Bilirubin 0.6 AST 27 ALT 30 Alkaline Phosphatase 51 Creatine Kinase Creatine Kinase Index CK-MB (CK-2) Troponin I B-Natriuretic Peptide Total Protein 4.8 L Albumin 2.0 L Vitamin B12 Urine Color Urine Appearance Urine pH Ur Specific [place] Urine Protein Urine Glucose (UA) Urine Ketones Urine Blood Urine Nitrite Urine Bilirubin Urine Urobilinogen Ur Leukocyte Esterase Urine WBC (Auto) Urine RBC (Auto) Urine Casts (Auto) U Pathogenic Cast Auto U Epithel Cells (Auto) Urine Bacteria (Auto) Influenza A (Rapid) Influenza B (Rapid) Blood Type Antibody Screen Crossmatch 03/21/19 03/22/19 03/22/19 07:00 06:00 08:20 WBC 17.0 H RBC 3.17 L Hgb 9.4 L Hct 28.6 L MCV 90.1 MCH 29.6 MCHC 32.8 RDW 15.7 H Plt Count 120 L MPV 8.4 Absolute Neuts (auto) Neutrophils % Neutrophils % (Manual) Band Neutrophils % Lymphocytes % Lymphocytes % (Manual) Monocytes % Monocytes % (Manual) Eosinophils % Eosinophils % (Manual) Basophils % Basophils % (Manual) Myelocytes % (Man) Promyelocytes % (Man) Blast Cells % (Manual) Nucleated RBC % Metamyelocytes Hypochromia Platelet Estimate Platelet Comment Polychromasia Poikilocytosis Anisocytosis Microcytosis Macrocytosis Ovalocytes PT with INR INR PTT (Actin FS) Anticoagulation Therapy Puncture Site ABG pH ABG pCO2 at Pt Temp ABG pO2 at Pt Temp ABG HCO3 ABG O2 Sat (Measured) ABG O2 Content ABG Base Excess Jimmy Test O2 Delivery Device Oxygen Flow Rate Vent Mode Vent Rate Mechanical Rate PEEP Pressure Support Vent Sodium 134 L 142 Potassium 3.7 3.7 Chloride 99 106 Carbon Dioxide 28 29 Anion Gap 7 L 6 L BUN 35 H 27 H Creatinine 1.1 1.0 Creat Clearance w eGFR 46.98 52.45 Random Glucose 97 87 Hemoglobin A1c % Lactic Acid Calcium 8.0 L 8.5 Phosphorus Magnesium Total Bilirubin 1.2 H 0.9 AST 29 34 ALT 29 30 Alkaline Phosphatase 58 60 Creatine Kinase Creatine Kinase Index CK-MB (CK-2) Troponin I B-Natriuretic Peptide Total Protein 4.9 L 5.0 L Albumin 2.1 L 2.1 L Vitamin B12 Urine Color Urine Appearance Urine pH Ur Specific [place] Urine Protein Urine Glucose (UA) Urine Ketones Urine Blood Urine Nitrite Urine Bilirubin Urine Urobilinogen Ur Leukocyte Esterase Urine WBC (Auto) Urine RBC (Auto) Urine Casts (Auto) U Pathogenic Cast Auto U Epithel Cells (Auto) Urine Bacteria (Auto) Influenza A (Rapid) Influenza B (Rapid) Blood Type Antibody Screen Crossmatch 03/23/19 03/23/19 03/23/19 05:45 05:45 14:35 WBC 16.5 H RBC 3.06 L Hgb 9.2 L Hct 27.3 L MCV 89.4 MCH 29.9 MCHC 33.5 RDW 15.7 H Plt Count 129 L MPV 8.8 Absolute Neuts (auto) Neutrophils % Neutrophils % (Manual) Band Neutrophils % Lymphocytes % Lymphocytes % (Manual) Monocytes % Monocytes % (Manual) Eosinophils % Eosinophils % (Manual) Basophils % Basophils % (Manual) Myelocytes % (Man) Promyelocytes % (Man) Blast Cells % (Manual) Nucleated RBC % Metamyelocytes Hypochromia Platelet Estimate Platelet Comment Polychromasia Poikilocytosis Anisocytosis Microcytosis Macrocytosis Ovalocytes PT with INR INR PTT (Actin FS) Anticoagulation Therapy Puncture Site Right radial ABG pH 7.44 ABG pCO2 at Pt Temp 37.3 ABG pO2 at Pt Temp 85.6 ABG HCO3 25.0 ABG O2 Sat (Measured) 97.1 ABG O2 Content 12.2 L ABG Base Excess 1.4 Jimmy Test No Result Required. O2 Delivery Device Oxygen Flow Rate Nasal o2 Vent Mode Vent Rate Mechanical Rate PEEP Pressure Support Vent Sodium 138 Potassium 3.7 Chloride 104 Carbon Dioxide 29 Anion Gap 5 L BUN 22 H Creatinine 1.0 Creat Clearance w eGFR 52.45 Random Glucose 83 Hemoglobin A1c % Lactic Acid Calcium 8.6 Phosphorus Magnesium Total Bilirubin 0.9 AST 38 H ALT 33 Alkaline Phosphatase 63 Creatine Kinase Creatine Kinase Index CK-MB (CK-2) Troponin I B-Natriuretic Peptide Total Protein 5.2 L Albumin 2.2 L Vitamin B12 Urine Color Urine Appearance Urine pH Ur Specific [place] Urine Protein Urine Glucose (UA) Urine Ketones Urine Blood Urine Nitrite Urine Bilirubin Urine Urobilinogen Ur Leukocyte Esterase Urine WBC (Auto) Urine RBC (Auto) Urine Casts (Auto) U Pathogenic Cast Auto U Epithel Cells (Auto) Urine Bacteria (Auto) Influenza A (Rapid) Influenza B (Rapid) Blood Type Antibody Screen Crossmatch 03/24/19 13:00 WBC RBC Hgb Hct MCV MCH MCHC RDW Plt Count MPV Absolute Neuts (auto) Neutrophils % Neutrophils % (Manual) Band Neutrophils % Lymphocytes % Lymphocytes % (Manual) Monocytes % Monocytes % (Manual) Eosinophils % Eosinophils % (Manual) Basophils % Basophils % (Manual) Myelocytes % (Man) Promyelocytes % (Man) Blast Cells % (Manual) Nucleated RBC % Metamyelocytes Hypochromia Platelet Estimate Platelet Comment Polychromasia Poikilocytosis Anisocytosis Microcytosis Macrocytosis Ovalocytes PT with INR INR PTT (Actin FS) Anticoagulation Therapy Puncture Site ABG pH ABG pCO2 at Pt Temp ABG pO2 at Pt Temp ABG HCO3 ABG O2 Sat (Measured) ABG O2 Content ABG Base Excess Jimmy Test O2 Delivery Device Oxygen Flow Rate Vent Mode Vent Rate Mechanical Rate PEEP Pressure Support Vent Sodium Potassium Chloride Carbon Dioxide Anion Gap BUN Creatinine Creat Clearance w eGFR Random Glucose Hemoglobin A1c % Lactic Acid Calcium Phosphorus Magnesium Total Bilirubin AST ALT Alkaline Phosphatase Creatine Kinase Creatine Kinase Index CK-MB (CK-2) Troponin I B-Natriuretic Peptide Total Protein Albumin Vitamin B12 3454 H Urine Color Urine Appearance Urine pH Ur Specific [place] Urine Protein Urine Glucose (UA) Urine Ketones Urine Blood Urine Nitrite Urine Bilirubin Urine Urobilinogen Ur Leukocyte Esterase Urine WBC (Auto) Urine RBC (Auto) Urine Casts (Auto) U Pathogenic Cast Auto U Epithel Cells (Auto) Urine Bacteria (Auto) Influenza A (Rapid) Influenza B (Rapid) Blood Type Antibody Screen Crossmatch Active Medications Generic Name Dose Route Start Last Admin Trade Name Freq PRN Reason Stop Dose Admin Acetaminophen 650 mg 03/21/19 15:15 05/05/19 21:06 Tylenol - PO 650 mg Q6H PRN Administration PAIN LEVEL 1-5 Albuterol/Ipratropium 1 amp 03/23/19 14:35 03/23/19 16:47 Duoneb - NEB 1 amp Q4H PRN Administration SHORTNESS OF BREATH Atorvastatin Calcium 40 mg 03/20/19 22:00 03/24/19 21:06 Lipitor - PO 40 mg HS PAMELA Administration Donepezil HCl 10 mg 03/20/19 22:00 03/24/19 21:07 Aricept - PO 10 mg HS PAMELA Administration Lidocaine/Aluminum/Magnesium/Simeth 5 ml 03/20/19 18:00 03/25/19 05:43 Magic Mouthwash *Sjr Formula* - MM 5 ml Q6HPO PAMELA Administration Melatonin 5 mg 03/21/19 22:39 03/24/19 21:06 Melatonin PO 5 mg HS PRN Administration INSOMNIA Metoprolol Tartrate 25 mg 03/20/19 10:00 03/25/19 09:08 Lopressor - PO 25 mg BID PAMELA Administration Nystatin 1 applic 03/20/19 10:00 03/24/19 21:46 Mycostatin Cream - TP 1 applic BID PAMELA Administration Ondansetron HCl 4 mg 03/19/19 22:37 Zofran Injection IVPB Q8H PRN NAUSEA Pantoprazole Sodium 40 mg 03/21/19 10:00 03/25/19 09:08 Protonix - PO 40 mg DAILY PAMELA Administration Pt Own Med(Namenda 1 each 03/20/19 10:00 03/25/19 09:09 Er 14 Mg PO 1 each DAILY PAMELA Administration Valacyclovir HCl 1,000 mg 03/24/19 22:00 03/25/19 09:08 Valtrex - PO 1,000 mg BID PAMELA Administration Microbiology 03/16/19 16:00 Blood - Peripheral Venous Blood Culture - Final NO GROWTH AFTER 5 DAYS INCUBATION 03/16/19 15:45 Blood - Peripheral Venous Blood Culture - Final NO GROWTH AFTER 5 DAYS INCUBATION 03/18/19 02:20 Urine - Urine [place] Urine Culture - Final NO GROWTH OBTAINED 03/10/19 21:35 Blood - Peripheral Venous Blood Culture - Final NO GROWTH AFTER 5 DAYS INCUBATION 03/10/19 21:35 Blood - Peripheral Venous Blood Culture - Final NO GROWTH AFTER 5 DAYS INCUBATION 03/12/19 14:05 Urine For Antigen Detection Legionella Antigen - Final 03/12/19 14:05 Urine For Antigen Detection Streptococcus pneumoniae Antigen (M - Final 03/11/19 09:41 Urine - Urine - Catheterized Urine Culture - Final NO GROWTH OBTAINED Condition: Stable - Instructions Diet, Activity, Other Instructions: resume current medication regimen follow up with GI Dr Noble follow up with Surgery return to ER if develop severe pain, chest pain, respiratory failure, AMS, blood in stool Referrals: Jorge Alberto Noble DO [Staff Physician] - Archie Tucker DO [Staff Physician] - Disposition: NURSING HOME FACILITY - Home Medications Comprehensive Discharge Medication List: Ambulatory Orders Amlodipine Besylate 10 mg PO DAILY 03/11/19 Aspirin 81 mg PO DAILY 03/11/19 Cholecalciferol (Vitamin D3) [Vitamin D3] 2,000 unit PO DAILY 03/11/19 Cyanocobalamin (Vitamin B-12) [Vitamin B-12] 1,000 mcg PO DAILY 03/11/19 Donepezil HCl 10 mg PO DAILY 03/11/19 Escitalopram Oxalate [Lexapro -] 10 mg PO DAILY 03/11/19 Folic Acid 1 mg PO DAILY 03/11/19 Furosemide 40 mg PO DAILY 03/11/19 Memantine HCl [Memantine HCl ER] 14 mg PO DAILY 03/11/19 Acetaminophen [Tylenol .Regular Strength -] 650 mg PO Q6H PRN tablet 03/25/19 Albuterol 2.5/Ipratropium 0.5 [Duoneb -] 1 amp NEB Q4H PRN amp 03/25/19 Atorvastatin Ca [Lipitor] 40 mg PO HS tablet 03/25/19 Donepezil HCl [Aricept -] 10 mg PO HS tablet 03/25/19 Mag Hydrox/Alh/Smc/Dpha/Lido [Magic Mouthwash *Sjr Formula* -] 5 ml MM Q6HPO bottle 03/25/19 Melatonin 5 mg PO HS PRN tab 03/25/19 Metoprolol Tartrate [Lopressor -] 25 mg PO BID tablet 03/25/19 Nystatin Cream [Mycostatin Cream -] 1 applic TP BID applic 03/25/19 Pantoprazole Sodium [Protonix -] 40 mg PO DAILY tablet.ec 03/25/19 Pt Own Med (Pyxis) 1 each PO DAILY box 03/25/19 Valacyclovir HCl [Valtrex -] 1,000 mg PO BID tablet 03/25/19
[2019-03-25 13:16] LABS: HEMATOCRIT 29.2 % (32.4-45.2); HEMOGLOBIN 9.5 GM/dL (10.7-15.3); MCH 29.6 pg (25.7-33.7); MCHC 32.5 g/dl (32.0-36.0); MEAN CELL VOLUME 90.8 fl (80-96); MEAN PLT VOLUME 8.8 fl (7.5-11.1); PLATELET COUNT 148 K/MM3 (134-434); RBC 3.22 M/mm3 (3.60-5.2); RDW 16.4 % (11.6-15.6); WHITE BLOOD COUNT 11.5 K/mm3 (4.0-10.0)
[2019-03-25] MEDS: NYSTATIN 100,000 UNIT/GM TOPICAL CREAM 15 GM TUBE TP SCH (13:23)
[2019-03-25 14:03] LABS: ALBUMIN 2.4 g/dl (3.4-5.0); ALK PHOS 174 U/L (45-117); ANION GAP 9 MMOL/L (8-16); BILIRUBIN,TOTAL 0.8 mg/dL (0.2-1); BLOOD UREA NITROGEN 21 mg/dL (7-18); CALCIUM 8.2 mg/dL (8.5-10.1); CHLORIDE 104 mmol/L (98-107); CO2 28 mmol/L (21-32); CREATININE 1.2 mg/dL (0.55-1.3); GLUCOSE,RANDOM 163 mg/dL (74-106); POTASSIUM 3.4 mmol/L (3.5-5.1); SGOT/AST 64 U/L (15-37); SGPT/ALT 76 U/L (13-61); SODIUM 140 mmol/L (136-145); TOT PROT 5.5 g/dl (6.4-8.2)
[2019-03-25] MEDS ORDERED: POTASSIUM CHLORIDE ORAL LIQUID 20 MEQ/15 ML PO ONE (15:00)
[2019-03-25 18:31] VITALS: TEMP 98.4
[2019-03-25 18:38] VITALS: BP 153/75; PULSE 98
== END 2019-03-25 18:35 | DRG 193 ==
LOC: JER 21:20 → JERBED 23:11 → J4W 03-11 23:46 → J6S 03-14 13:27 → J4W 03-16 11:50 → JICU 03-17 13:02 → J7W 03-19 22:29
PROVIDERS: ADMIT Family Medicine; ATTEND Student in an Organized Health Care Education/Training Program
PROC: 06HM33Z Insertion of Infusion Device into Right Femoral Vein, Percutaneous Approach (ICD-10-PCS; principal; 2019-03-17)
PROC: B54BZZA Ultrasonography of Right Lower Extremity Veins, Guidance (ICD-10-PCS; 2019-03-17)
PROC: 30233L1 Transfusion of Nonautologous Fresh Plasma into Peripheral Vein, Percutaneous Approach (ICD-10-PCS; 2019-03-17)
PROC: 30233N1 Transfusion of Nonautologous Red Blood Cells into Peripheral Vein, Percutaneous Approach (ICD-10-PCS; 2019-03-17)
PROC: 30233K1 Transfusion of Nonautologous Frozen Plasma into Peripheral Vein, Percutaneous Approach (ICD-10-PCS; 2019-03-17)
PROC: 0W3P8ZZ Control Bleeding in Gastrointestinal Tract, Via Natural or Artificial Opening Endoscopic (ICD-10-PCS; 2019-03-18)
PROC: 02HV33Z Insertion of Infusion Device into Superior Vena Cava, Percutaneous Approach (ICD-10-PCS; 2019-03-19)
PROC: B548ZZA Ultrasonography of Superior Vena Cava, Guidance (ICD-10-PCS; 2019-03-19)
DX: J18.9 Pneumonia, unspecified organism (principal); J96.02 Acute respiratory failure with hypercapnia; J96.01 Acute respiratory failure with hypoxia; K26.4 Chronic or unspecified duodenal ulcer with hemorrhage; N17.9 Acute kidney failure, unspecified; E87.1 Hypo-osmolality and hyponatremia; I24.8 Other forms of acute ischemic heart disease; N13.30 Unspecified hydronephrosis; J44.1 Chronic obstructive pulmonary disease with (acute) exacerbation; D62 Acute posthemorrhagic anemia; I50.32 Chronic diastolic (congestive) heart failure; I11.0 Hypertensive heart disease with heart failure; E78.5 Hyperlipidemia, unspecified; F03.90 Unspecified dementia, unspecified severity, without behavioral disturbance, psychotic disturbance, mood disturbance, and anxiety; E66.9 Obesity, unspecified; E87.6 Hypokalemia; R74.8 Abnormal levels of other serum enzymes; R45.1 Restlessness and agitation; Z68.39 Body mass index [BMI] 39.0-39.9, adult; I48.0 Paroxysmal atrial fibrillation; R91.1 Solitary pulmonary nodule; F17.210 Nicotine dependence, cigarettes, uncomplicated; I45.81 Long QT syndrome; N28.9 Disorder of kidney and ureter, unspecified; D64.9 Anemia, unspecified; K26.9 Duodenal ulcer, unspecified as acute or chronic, without hemorrhage or perforation; K62.89 Other specified diseases of anus and rectum; R41.0 Disorientation, unspecified
CPT/HCPCS: 36415; 36430; 36600; 70450-TC; 71045-TC-FY; 71250-TC; 74230-TC-FY; 76775-TC; 76856-TC; 80048; 80053; 81003; 82550; 82553; 82607; 82803; 83036; 83605; 83735; 83880; 84100; 84484; 85025; 85027; 85610; 85730; 86850; 86900; 86901; 86922; 87040; 87086; 87804; 87899; 92611-GN; 93005; 93010; 93225; 93226; 93306-TC; 93970-TC; 94640; 94660; 97116-GP; 97162-GP; 99284-25; J1644; J7030; P9017; P9038; P9058